=== PATIENT | female | born 1970 | race American Indian/Alaskan Native ===

== ENCOUNTER 2020-07-18 06:00 | Day surgery (SDC) | payer MEDICARE, OTHER ==
[~2020-07-18 06:00] MED LIST: Dextrose 5%-0.45% NaCl 1,000 ML IV SCH; Sodium Chloride 0.9% 10 ML Syringe FLUSH PRN
[2020-07-18] MEDS ORDERED: Midazolam 1 MG/ML 2 ML SDV IV ONE ×3 (06:01→07:00)
[2020-07-18] MEDS ORDERED: fentaNYL 100 MCG/2 ML SDV IV ONE ×3 (06:01→06:59)
[2020-07-18] MEDS ORDERED: fentaNYL 100 MCG/2 ML SDV ONE (06:15)
[2020-07-18] MEDS ORDERED: Midazolam 1 MG/ML 2 ML SDV ONE (06:15)
--- NOTE | 2020-07-18 07:56 | OR ---
DATE: 07/18/2020 PROCEDURES: Esophagogastroduodenoscopy and multiple pinch biopsies. INSTRUMENT USED: [id number] Olympus video panendoscope. PREMEDICATIONS: No oral or topical anesthesia used. Fentanyl 100 mcg intravenous, Versed 2 mg intravenous, nasal O2 cannula. 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 INDICATION: The patient with persistent upper abdominal pain, heartburn, dyspepsia, and weight loss, unexplained and not responsive to medical measures. Esophagogastroduodenoscopy is performed for detection of any active erosive lesions, Lugo esophagus and/or malignancy also under consideration, H pylori status to be determined. Small bowel biopsies to be obtained for celiac disease, endoscopic hemostasis therapy if needed. PROCEDURE IN DETAIL: The scope was passed with ease. Adequate visualization of the esophagus was made from proximal to distal areas. No upper esophageal lesions identified. No distal esophageal stricture. No uphill or downhill esophageal varices. No Barbi-Celaya tear. No evidence of erosive esophagitis by Cobb criteria. No esophageal polyp or tumor mass identified. Z-line was seen at around 39 cm distal to the oral verge. No proximal gastric varices noted. Gastric fundus examination by retroflexion showed no polypoid lesions. No gastric ulcer, malignant mass, or vascular ectasia identified. Duodenal bulb showed no ulcer. Visualized second part of the duodenum was unremarkable. Multiple pinch biopsies, 4 in number, were taken from different areas of the second part of the duodenum and tissues were also obtained from the duodenal bulb at 9 and 12 o'clock positions and sent for any histopathologic evidence of celiac disease. Multiple pinch biopsies were also obtained from the gastric antrum and proximal body and sent for PyloriTek test for H pylori and histopathology. No bleeding was noted from any of the visualized areas at the completion of examination. Photographs were taken of the duodenal bulb, gastric antrum, fundus, and distal esophagus. IMPRESSION: Normal study. The patient tolerated the procedure well. [facility] /[id number]
== END 2020-07-18 09:14 | disposition home or self-care (01) ==
LOC: DL.ENDO 06:00
PROVIDERS: ATTEND Internal Medicine Gastroenterology
DX: K31.89 Other diseases of stomach and duodenum (principal); I78.1 Nevus, non-neoplastic; E78.5 Hyperlipidemia, unspecified; E66.09 Other obesity due to excess calories; Z68.26 Body mass index [BMI] 26.0-26.9, adult; H90.3 Sensorineural hearing loss, bilateral; N20.0 Calculus of kidney; Z88.2 Allergy status to sulfonamides; Z98.890 Other specified postprocedural states
CPT/HCPCS: 43239; 87077; 88305; J2250; J3010; J7042

== ENCOUNTER 2020-08-18 16:48 | Emergency (ER) | payer MEDICARE, OTHER ==
[2020-08-18] MEDS ORDERED: Acetaminophen/HYDROcodone 325-10 MG Tab PO ONE (16:49)
[2020-08-18] MEDS ORDERED: Ketorolac 10 MG Tab PO ONE (16:49)
[2020-08-18] MEDS ORDERED: Ondansetron 4 MG Tab.DIS PO ONE (16:49)
[2020-08-18] MEDS ORDERED: Sodium Chloride 0.9% 10 ML Syringe FLUSH PRN (18:11)
[2020-08-18] MEDS ORDERED: Ondansetron 4 MG/2 ML SDV IV ONE (18:11)
[2020-08-18] MEDS ORDERED: HYDROmorphone 1 MG/ML Syringe IVPUSH ONE (18:11)
[2020-08-18] MEDS ORDERED: Tamsulosin 0.4 MG Cap.ER PO ONE (18:12)
[2020-08-18] MEDS ORDERED: Ketorolac 30 MG/ML SDV IVPUSH ONE (18:12)
--- NOTE | 2020-08-18 18:55 | EDM.PDOC ---
"Scribed by Abi Castellon 08/18/20 [id number] for Taiwo Thomson MD <Taiwo Thomson - Last Filed: 08/18/20 18:54> ED HPI GENERAL MEDICAL PROBLEM - General Chief Complaint: Genitourinary Problem Stated Complaint: LEFT LOWER BACK PAIN. ALSO THROWING UP Time Seen by Provider: 08/18/20 17:54 Source of Information: Reports: Patient, RN, RN Notes Reviewed History Limitations: Reports: Other (deaf) - History of Present Illness INITIAL COMMENTS - FREE TEXT/NARRATIVE: Patient presents to ED by POV stating she has onset of left flank pain this afternoon. Initially the pain was severe and made her vomit. She had a CT scan a few weeks for gallbladder and the surgeon states that she had a small kidney stone on the left within the left, where it should not cause any problems. She thinks it maybe the cause of her pain. Onset: Today Duration: Getting Worse Location: Reports: Other (flank) Quality: Reports: Ache Severity: Severe Improves with: Reports: None Worsens with: Reports: None Associated Symptoms: Reports: No Other Symptoms Left Flank Pain Score (Numeric/FACES): 6 - Related Data Allergies Allergy/AdvReac Type Severity Reaction Status Date / Time sulfacetamide Allergy Other Verified 07/17/20 11:41 Home Meds: Home Meds Calcium Carbonate [Tums] 1,000 mg PO ASDIRECTED 07/17/20 [History] FLUoxetine [PROzac] 10 mg PO DAILY 07/17/20 [History] Glucosamine Sulfate 500 mg PO .MWF 07/17/20 [History] Omeprazole 20 mg PO DAILY 07/17/20 [History] Propranolol [Inderal] 20 mg PO DAILY 07/17/20 [History] Topiramate [Topamax] 50 mg PO BID 07/17/20 [History] Past Medical History HEENT History: Reports: Cataract, Hard of Hearing, Other (See Below) Other HEENT History: CONGENTIAL DEAFNESS Cardiovascular History: Reports: High Cholesterol Respiratory History: Reports: None Gastrointestinal History: Reports: None Genitourinary History: Reports: None, Renal Calculus 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 Musculoskeletal History: Reports: Arthritis Neurological History: Reports: Migraines Psychiatric History: Reports: Anxiety Endocrine/Metabolic History: Reports: Obesity/BMI 30+ Hematologic History: Reports: Anemia Immunologic History: Reports: None Oncologic (Cancer) History: Reports: None Dermatologic History: Reports: None - Infectious Disease History Infectious Disease History: Reports: Chicken Pox - Past Surgical History HEENT Surgical History: Reports: Oral Surgery Cardiovascular Surgical History: Reports: None Respiratory Surgical History: Reports: None GI Surgical History: Reports: None, EGD Female Surgical History: Reports: Tubal Ligation Endocrine Surgical History: Reports: None Neurological Surgical History: Reports: None Musculoskeletal Surgical History: Reports: None Oncologic Surgical History: Reports: None Dermatological Surgical History: Reports: None Social & Family History - Caffeine Use Caffeine Use: Reports: Soda Other Caffeine Use: COCA COLA 1 CAN DAILY ED ROS GENERAL - Review of Systems Review Of Systems: Comprehensive ROS is negative, except as noted in HPI. ED EXAM, RENAL/ - Physical Exam Exam: See Below Exam Limited By: Other (deaf) General Appearance: Alert, WD/WN, No Apparent Distress Eye Exam: Bilateral Eye: EOMI, Normal Inspection, PERRL Ears: Normal External Exam, Normal Canal, Hearing Grossly Normal, Normal TMs Nose: Normal Inspection, Normal Mucosa, No Blood Throat/Mouth: Normal Inspection, Normal Lips, Normal Teeth, Normal Gums, Normal Oropharynx, Normal Voice, No Airway Compromise Head: Atraumatic, Normocephalic Neck: Normal Inspection, Supple, Non-Tender, Full Range of Motion Respiratory/Chest: No Respiratory Distress, Lungs Clear, Normal Breath Sounds, No Accessory Muscle Use, Chest Non-Tender Cardiovascular: Normal Peripheral Pulses, Regular Rate, Rhythm, No Edema, No Gallop, No JVD, No Murmur, No Rub GI/Abdominal: Other (left sided lower abdominal tenderness. ) (Female) Exam: Deferred Rectal (Female) Exam: Deferred Back Exam: CVA Tenderness (L). No: CVA Tenderness (R) Extremities: Normal Inspection, Normal Range of Motion, Non-Tender, Normal Capillary Refill, No Pedal Edema Neurological: Alert, Oriented, CN II-XII Intact, Normal Cognition, Normal Gait, Normal Reflexes, No Motor/Sensory Deficits Psychiatric: Normal Affect, Normal Mood Skin Exam: Warm, Dry, Intact, Normal Color, No Rash Lymphatic: No Adenopathy Course - Re-Assessments/Exams Free Text/Narrative Re-Assessment/Exam: 08/18/20 18:54 Care of pt transferred to Lion DASH at shift change. Departure - Departure Disposition: Home, Self-Care 01 Clinical Impression: Kidney stone on left side - Discharge Information Instructions: Kidney Stones, [id number] Forms: ED Department Discharge Care Plan Goals: The patient was advised (through a population geneticist) of the examination, lab and CT results. The patient was given IV Zofran, IV Toradol, IV Dilaudid, IV Reglan and an oral dose of Flomax while in the ED. The patient was discharged with Toradol (10 mg) #2 to take 1 by mouth every 6 hours, Zofran ODT (4 mg) #2 to take 1 by mouth every 6 hours and [place] (10/325) #2 to take 1 by mouth every 6 hours as needed for pain. The patient was also discharged with scripts for Toradol (10 mg) #20 to take 1 by mouth every 6 hours, Zofran (4 mg) #20 to take 1 by mouth every 6 hours for nausea and Flomax (0.4 mg) #6 to take 1 by mouth daily for 6 days. The patient was encourage to increase her oral fluid intake over the next 48 hours. If the patient has any additional symptoms or concerns, the patient should either return to the emergency department or visit her primary care facility. <Lion Booth M - Last Filed: 08/18/20 20:24> Course - Vital Signs Last Recorded V/S: Last Vital Signs Temp 36.3 C 08/18/20 17:30 Pulse 65 08/18/20 17:30 Resp 20 08/18/20 17:30 BP 125/61 08/18/20 17:30 Pulse Ox 100 08/18/20 17:30 - Orders/Labs/Meds Orders: Active Orders 24 hr Category Date Time Status Peripheral IV Care [RC] . DIRECTED Care 08/18/20 18:12 Active Sodium Chloride 0.9% [Saline Flush] Med 08/18/20 18:11 Active 10 ml FLUSH ASDIRECTED PRN Peripheral IV Insertion Adult [OM.PC] Stat Oth 08/18/20 18:11 Ordered Medication Orders Sodium Chloride (Sodium Chloride 0.9% 10 Ml Syringe) 10 ml FLUSH ASDIRECTED PRN PRN Reason: Keep Vein Open Labs: Laboratory Tests 08/18/20 Range/Units 17:30 Urine Color Yellow (YELLOW) Urine Appearance Cloudy (CLEAR) Urine pH 7.0 (5.0-9.0) Ur Specific [place] 1.020 (1.005-1.030) Urine Protein Negative (NEGATIVE) Urine Glucose (UA) Negative (NEGATIVE) Urine Ketones Negative (NEGATIVE) Urine Occult Blood Moderate H (NEGATIVE) Urine Nitrite Negative (NEGATIVE) Urine Bilirubin Negative (NEGATIVE) Urine Urobilinogen 0.2 (0.2-1.0) mg/dL Ur Leukocyte Esterase Negative (NEGATIVE) Urine RBC 30-40 H /HPF Urine WBC 0-5 (0-5/HPF) /HPF Ur Epithelial Cells Moderate H (NOT SEEN) /HPF Amorphous Sediment Many H (NOT SEEN) /HPF Urine Bacteria Moderate H (0-FEW/HPF) /HPF Meds: Medications Generic Name Dose Route Start Last Admin Trade Name Freq PRN Reason Stop Dose Admin Sodium Chloride 10 ml 08/18/20 18:11 Sodium Chloride 0.9% 10 Ml Syringe FLUSH ASDIRECTED PRN Keep Vein Open Discontinued Medications Generic Name Dose Route Start Last Admin Trade Name Freq PRN Reason Stop Dose Admin Hydromorphone HCl 1 mg 08/18/20 18:11 08/18/20 19:03 Hydromorphone 1 Mg/Ml Syringe IVPUSH 08/18/20 18:12 1 mg ONETIME ONE Administration Ketorolac Tromethamine 30 mg 08/18/20 18:12 08/18/20 19:01 Ketorolac 30 Mg/Ml Sdv IVPUSH 08/18/20 18:13 30 mg ONETIME ONE Administration Ondansetron HCl 4 mg 08/18/20 18:11 08/18/20 19:00 Ondansetron 4 Mg/2 Ml Sdv IV 08/18/20 18:12 4 mg ONETIME ONE Administration Tamsulosin HCl 0.4 mg 08/18/20 18:12 08/18/20 19:05 Tamsulosin 0.4 Mg Cap.Er PO 08/18/20 18:13 0.4 mg ONETIME ONE Administration - Radiology Interpretation Free Text/Narrative:: [facility] Final Radiology Report Call: [phone] assistance Online chat: [email or web address] Name: IQRA SALAS Age: 49Years F Date: 08/18/2020 SSN: -- : [id number] Study: CT ABDOMEN PELVIS WO CONT Requesting Physician: TAIWO THOMSON Images: [id number] Addl Studies: Provided Clinical History: Left flank pain, hematuria Contrast: Without Contrast Medium: Contrast Amount: Contrast Method: Page 1 of 2 PROCEDURE INFORMATION: Exam: CT Abdomen And Pelvis Without Contrast Exam date and time: 08/18/2020 7:14 PM Age: 49 years old Clinical indication: Other: Left sided pain; Additional info: Left flank pain, hematuria TECHNIQUE: Imaging protocol: Computed tomography of the abdomen and pelvis without contrast. Radiation optimization: All CT scans at this facility use at least one of these dose optimization techniques: automated exposure control; mA and/or kV adjustment per patient size (includes targeted exams where dose is matched to clinical indication); or iterative reconstruction. COMPARISON: CT Abdomen Pelvis w Cont 07/27/2020 8:41 AM FINDINGS: Lungs: The visualized lung bases are clear. Liver: The liver is normal. Gallbladder and bile ducts: The gallbladder is normal. There is no evidence of biliary ductal dilation. Pancreas: The pancreas is normal. Spleen: The spleen is normal. Adrenal glands: The adrenal glands are normal. Kidneys and ureters: 8 x 3 x 5 mm proximal left ureteral calculus with hydroureter and hydronephrosis. There is moderate left hydronephrosis. Moderate proximal left hydroureterThere is mild inflammatory left perinephric stranding. 2 mm calculus upper pole left kidney. 1 mm calculus lower pole right kidney.The right kidney is otherwise unremarkable. Stomach and bowel: Non-specific/nonobstructive intestinal gas pattern. Appendix: A normal appendix is identified. IQRA SALAS | Final Radiology Report CONFIDENTIALITY STATEMENT This report is intended only for use by the referring physician, and only in accordance with law. If you received this in error, call [phone]. Page 2 of 2 Intraperitoneal space: No free intraperitoneal air. No free intraperitoneal fluid. No free intraperitoneal air. No free intraperitoneal fluid. Vasculature: There is no aortic aneurysm. Lymph nodes: There is no adenopathy. Urinary bladder: The bladder is normal. Reproductive: Uterus is anteverted. Multiple nabothian cysts suspect. Small amount of endometrial fluid. 28 mm cyst left ovary.The right ovary is normal. Bones/joints: No acute bony findings are identified. Soft tissues: There is no soft tissue abnormality seen. IMPRESSION: 1. 8 x 3 x 5 mm proximal left ureteral calculus with hydroureter and hydronephrosis. 2. Mild left perinephric stranding suggests forniceal rupture and/or infection. 3. There are additional bilateral intrarenal calculi. 4. Small cyst left ovary, no follow-up suggested. Thank you for allowing us to participate in the care of your patient. Dictated and Authenticated by: Osmar Qureshi MD 08/18/2020 7:33 PM Central Time ([place] & [place]) Departure - Departure Time of Disposition: 20:16 Condition: Fair - Discharge Information *PRESCRIPTION DRUG MONITORING PROGRAM REVIEWED*: Not Applicable *COPY OF PRESCRIPTION DRUG MONITORING REPORT IN PATIENT NETTIE: Not Applicable Sepsis Event Note (ED) - Focused Exam Vital Signs: Vital Signs Temp Pulse Resp BP Pulse Ox 08/18/20 17:30 36.3 C 65 20 125/61 100 I have read and agree with the documentation that has been completed regarding this visit. By signing this record, I attest that the documentation was completed in my physical presence and is an accurate record of the encounter."
--- NOTE | 2020-08-18 19:33 | CT ---
PROCEDURE INFORMATION: Exam: CT Abdomen And Pelvis Without Contrast Exam date and time: 08/18/2020 7:14 PM Age: 49 years old Clinical indication: Other: Left sided pain; Additional info: Left flank pain, hematuria TECHNIQUE: Imaging protocol: Computed tomography of the abdomen and pelvis without contrast. Radiation optimization: All CT scans at this facility use at least one of these dose optimization techniques: automated exposure control; mA and/or kV adjustment per patient size (includes targeted exams where dose is matched to clinical indication); or iterative reconstruction. COMPARISON: CT Abdomen Pelvis w Cont 07/27/2020 8:41 AM FINDINGS: Lungs: The visualized lung bases are clear. Liver: The liver is normal. Gallbladder and bile ducts: The gallbladder is normal. There is no evidence of biliary ductal dilation. Pancreas: The pancreas is normal. Spleen: The spleen is normal. Adrenal glands: The adrenal glands are normal. Kidneys and ureters: 8 x 3 x 5 mm proximal left ureteral calculus with hydroureter and hydronephrosis. There is moderate left hydronephrosis. Moderate proximal left hydroureterThere is mild inflammatory left perinephric stranding. 2 mm calculus upper pole left kidney. 1 mm calculus lower pole right kidney.The right kidney is otherwise unremarkable. Stomach and bowel: Non-specific/nonobstructive intestinal gas pattern. Appendix: A normal appendix is identified. Intraperitoneal space: No free intraperitoneal air. No free intraperitoneal fluid. No free intraperitoneal air. No free intraperitoneal fluid. Vasculature: There is no aortic aneurysm. Lymph nodes: There is no adenopathy. Urinary bladder: The bladder is normal. Reproductive: Uterus is anteverted. Multiple nabothian cysts suspect. Small amount of endometrial fluid. 28 mm cyst left ovary.The right ovary is normal. Bones/joints: No acute bony findings are identified. Soft tissues: There is no soft tissue abnormality seen. IMPRESSION: 1. 8 x 3 x 5 mm proximal left ureteral calculus with hydroureter and hydronephrosis. 2. Mild left perinephric stranding suggests forniceal rupture and/or infection. 3. There are additional bilateral intrarenal calculi. 4. Small cyst left ovary, no follow-up suggested.
[2020-08-18] MEDS ORDERED: Metoclopramide 10 MG/2 ML SDV IVPUSH ONE (20:13)
[2020-08-18] MEDS ORDERED: Ondansetron 4 MG Tab.DIS ONE (20:30)
[2020-08-18] MEDS ORDERED: Acetaminophen/HYDROcodone 325-10 MG Tab ONE (20:30)
[2020-08-18] MEDS ORDERED: Ketorolac 10 MG Tab ONE (20:41)
== END 2020-08-18 20:49 | disposition home or self-care (01) ==
LOC: DL.ED 16:48
DX: N13.2 Hydronephrosis with renal and ureteral calculous obstruction (principal); E78.00 Pure hypercholesterolemia, unspecified; E66.9 Obesity, unspecified; Z88.2 Allergy status to sulfonamides; Z79.899 Other long term (current) drug therapy; Z68.26 Body mass index [BMI] 26.0-26.9, adult
CPT/HCPCS: 74176; 81001; 96374; 96375; 99284; A9270; J1170; J1885; J2405; J2765

== ENCOUNTER 2020-08-19 20:57 | Emergency (ER) | payer MEDICARE, OTHER ==
[2020-08-19] MEDS ORDERED: HYDROmorphone 0.5 MG/0.5 ML Syringe IVPUSH ONE (22:44)
--- NOTE | 2020-08-19 22:54 | EDM.PDOC ---
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 The patient was seen in the ED yesterday due to a left kidney stone. The patient had been doing well all day, but started to have increased pain in her left side this evening when she went to bed. The patient has been taking her medications as prescribed. The patient reports she has had normal urine output and a normal bowel movement. Duration: Day(s):, Intermittent Location: Reports: Back (left flank) Quality: Reports: Ache, Sharp Severity: Moderate Improves with: Reports: None Worsens with: Reports: None Context: Reports: Other Associated Symptoms: Reports: No Other Symptoms Treatments NURSE HEAD: Reports: Other Medication(s) Flank Pain Score (Numeric/FACES): 6 - Related Data Allergies Allergy/AdvReac Type Severity Reaction Status Date / Time sulfacetamide Allergy Other Verified 07/17/20 11:41 Home Meds: Home Meds Calcium Carbonate [Tums] 1,000 mg PO ASDIRECTED 07/17/20 [History] FLUoxetine [PROzac] 10 mg PO DAILY 07/17/20 [History] Glucosamine Sulfate 500 mg PO .MWF 07/17/20 [History] Omeprazole 20 mg PO DAILY 07/17/20 [History] Propranolol [Inderal] 20 mg PO DAILY 07/17/20 [History] Topiramate [Topamax] 50 mg PO BID 07/17/20 [History] Past Medical History HEENT History: Reports: Cataract, Hard of Hearing, Other (See Below) Other HEENT History: CONGENTIAL DEAFNESS Cardiovascular History: Reports: High Cholesterol Respiratory History: Reports: None Gastrointestinal History: Reports: None Genitourinary History: Reports: None, Renal Calculus 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 Musculoskeletal History: Reports: Arthritis Neurological History: Reports: Migraines Psychiatric History: Reports: Anxiety Endocrine/Metabolic History: Reports: Obesity/BMI 30+ Hematologic History: Reports: Anemia Immunologic History: Reports: None Oncologic (Cancer) History: Reports: None Dermatologic History: Reports: None - Infectious Disease History Infectious Disease History: Reports: Chicken Pox - Past Surgical History HEENT Surgical History: Reports: Oral Surgery Cardiovascular Surgical History: Reports: None Respiratory Surgical History: Reports: None GI Surgical History: Reports: None, EGD Female Surgical History: Reports: Tubal Ligation Endocrine Surgical History: Reports: None Neurological Surgical History: Reports: None Musculoskeletal Surgical History: Reports: None Oncologic Surgical History: Reports: None Dermatological Surgical History: Reports: None Social & Family History - Caffeine Use Caffeine Use: Reports: Coffee Other Caffeine Use: COCA COLA 1 CAN DAILY ED ROS GENERAL - Review of Systems Review Of Systems: Comprehensive ROS is negative, except as noted in HPI. ED EXAM, RENAL/ - Physical Exam Exam: See Below Exam Limited By: No Limitations General Appearance: Alert, WD/WN, Moderate Distress Eye Exam: Bilateral Eye: EOMI, Normal Inspection, PERRL Ears: Normal External Exam, Normal Canal, Normal TMs Nose: Normal Inspection, Normal Mucosa, No Blood Throat/Mouth: Normal Inspection, Normal Lips, Normal Teeth, Normal Gums, Normal Oropharynx, Normal Voice, No Airway Compromise Head: Atraumatic, Normocephalic Neck: Normal Inspection, Supple, Non-Tender, Full Range of Motion Respiratory/Chest: No Respiratory Distress, Lungs Clear, Normal Breath Sounds, No Accessory Muscle Use, Chest Non-Tender Cardiovascular: Normal Peripheral Pulses, Regular Rate, Rhythm, No Edema, No Gallop, No JVD, No Murmur, No Rub GI/Abdominal: Normal Bowel Sounds, Soft, Non-Tender, No Organomegaly, No Distention, No Abnormal Bruit, No Mass (Female) Exam: Deferred Rectal (Female) Exam: Deferred Back Exam: CVA Tenderness (L) Extremities: Normal Inspection, Normal Range of Motion, Non-Tender, Normal Capillary Refill, No Pedal Edema Neurological: Alert, Oriented, CN II-XII Intact, Normal Cognition, Normal Gait, Normal Reflexes, No Motor/Sensory Deficits Psychiatric: Normal Affect, Normal Mood Skin Exam: Warm, Dry, Intact, Normal Color, No Rash Course - Vital Signs Last Recorded V/S: Last Vital Signs Temp 37.2 C 08/19/20 22:45 Pulse 78 08/19/20 22:45 Resp 20 08/19/20 22:45 BP 117/69 08/19/20 22:45 Pulse Ox 96 08/19/20 22:45 - Orders/Labs/Meds Meds: Medications Discontinued Medications Generic Name Dose Route Start Last Admin Trade Name Martínez PRN Reason Stop Dose Admin Hydromorphone HCl 0.5 mg 08/19/20 22:44 08/19/20 23:17 Hydromorphone 0.5 Mg/0.5 Ml Syringe IVPUSH 08/19/20 22:45 0.5 mg ONETIME ONE Administration Hydromorphone HCl 0.5 mg 08/20/20 00:14 08/20/20 00:21 Hydromorphone 0.5 Mg/0.5 Ml Syringe IVPUSH 08/20/20 00:15 0.5 mg ONETIME ONE Administration Departure - Departure Time of Disposition: 00:23 Disposition: DC/Tfer to Acute Hospital 02 Condition: Fair Clinical Impression: Kidney stone on left side - Discharge Information *PRESCRIPTION DRUG MONITORING PROGRAM REVIEWED*: Not Applicable *COPY OF PRESCRIPTION DRUG MONITORING REPORT IN PATIENT NETTIE: Not Applicable Forms: Interfacility Transfer EMTALA Care Plan Goals: Discussed the patient's history, examination, and CT results with Dr. Carbone (Hospitalist with [facility] in [place]). Dr. Carbone accepted the patient for continued evaluation and management. The patient will be transported by [facility]. Sepsis Event Note (ED) - Focused Exam Vital Signs: Vital Signs Temp Pulse Resp BP Pulse Ox 08/19/20 22:45 37.2 C 78 20 117/69 96
--- NOTE | 2020-08-19 23:36 | CT ---
PROCEDURE INFORMATION: Exam: CT Abdomen And Pelvis Without Contrast Exam date and time: 08/19/2020 10:58 PM Age: 49 years old Clinical indication: Other: Increased pain since yesterday; Additional info: Kidney stone TECHNIQUE: Imaging protocol: Computed tomography of the abdomen and pelvis without contrast. Radiation optimization: All CT scans at this facility use at least one of these dose optimization techniques: automated exposure control; mA and/or kV adjustment per patient size (includes targeted exams where dose is matched to clinical indication); or iterative reconstruction. COMPARISON: CT Abdomen Pelvis wo Cont 08/18/2020 7:14 PM FINDINGS: Liver: Normal. No mass. Gallbladder and bile ducts: The gallbladder is partially contracted. No calcified gallstones. Pancreas: Normal. No ductal dilation. Spleen: Normal. No splenomegaly. Adrenal glands: Normal. No mass. Kidneys and ureters: Mild left hydronephrosis with an obstructing stone in the proximal ureter measuring 6 x 5 x 10 mm. Mild left perinephric edema. Other small stone in the left upper renal pole and punctate nonobstructive stone in the right lower renal pole. No right hydronephrosis or hydroureter. Stomach and bowel: Unremarkable. No obstruction. No mucosal thickening. Appendix: Normal appendix. No acute appendicitis. Intraperitoneal space: Unremarkable. No free air. No significant fluid collection. Vasculature: Unremarkable. No abdominal aortic aneurysm. Lymph nodes: Unremarkable. No enlarged lymph nodes. Urinary bladder: Unremarkable as visualized. Reproductive: There are multiple nabothian cysts. Bones/joints: Unremarkable. No acute fracture. Soft tissues: Unremarkable. IMPRESSION: Mild left hydronephrosis with an obstructing stone in the proximal ureter measuring 6 x 5 x 10 mm.
[2020-08-20] MEDS ORDERED: HYDROmorphone 0.5 MG/0.5 ML Syringe IVPUSH ONE (00:14)
[2020-08-20] MEDS ORDERED: Ondansetron 4 MG/2 ML SDV IVPUSH ONE (00:27)
== END 2020-08-20 01:40 ==
LOC: DL.ED 20:57
DX: N13.2 Hydronephrosis with renal and ureteral calculous obstruction (principal); E66.9 Obesity, unspecified; Z68.29 Body mass index [BMI] 29.0-29.9, adult; Z88.2 Allergy status to sulfonamides; Z79.899 Other long term (current) drug therapy
CPT/HCPCS: 74176; 96374; 96375; 96376; 99285; J1170; J2405

== ENCOUNTER 2020-09-10 12:39 | Inpatient (IN) | payer MEDICARE, OTHER ==
[2020-09-10] MEDS ORDERED: Sodium Chloride 0.9% 1,000 ML IV ONE ×2 (14:35→16:31)
[2020-09-10] MEDS ORDERED: Ondansetron 4 MG/2 ML SDV IV ONE (14:35)
[2020-09-10] MEDS ORDERED: HYDROmorphone 0.5 MG/0.5 ML Syringe IVPUSH ONE (14:53)
[2020-09-10 15:10] LABS: ANION GAP 18.6 mEq/L (7-13); CHLORIDE,CL 104 mmol/L (98-107); SODIUM,NA 142 mmol/L (136-145)
[2020-09-10] MEDS ORDERED: cefTRIAXone 1 GM in Sodium Chloride 0.9% 50 ML IV ONE (16:16)
[2020-09-10] MEDS ORDERED: Metoclopramide 10 MG/2 ML SDV IVPUSH ONE (16:17)
--- NOTE | 2020-09-10 16:21 | CT ---
PROCEDURE INFORMATION: Exam: CT Abdomen And Pelvis Without Contrast Exam date and time: 09/10/2020 3:50 PM Age: 49 years old Clinical indication: Nausea and vomiting and other: Diahrrea; Prior surgery; Surgery type: Stent removal; Additional info: Left flank pain, recent lithotripsy stent remova TECHNIQUE: Imaging protocol: Computed tomography of the abdomen and pelvis without contrast. Radiation optimization: All CT scans at this facility use at least one of these dose optimization techniques: automated exposure control; mA and/or kV adjustment per patient size (includes targeted exams where dose is matched to clinical indication); or iterative reconstruction. COMPARISON: CT Abdomen Pelvis wo Cont 08/19/2020 10:58 PM FINDINGS: Lungs: Unremarkable.No mass or nodule. Liver: Normal. No mass. Gallbladder and bile ducts: Cholecystectomy. Pancreas: Normal. No ductal dilation. Spleen: Normal. No splenomegaly. Adrenal glands: Normal. No mass. Kidneys and ureters: Previously identified proximal left ureteral calculus is no longer identified. No residual hydronephrosis or hydroureter. Tiny nonobstructing calculus remains in the left kidney. Stomach and bowel: Unremarkable. No obstruction. No mucosal thickening. Appendix: No evidence of appendicitis. Intraperitoneal space: Unremarkable. No free air. No significant fluid collection. Vasculature: Unremarkable. No abdominal aortic aneurysm. Lymph nodes: Unremarkable. No enlarged lymph nodes. Urinary bladder: Unremarkable as visualized. Reproductive: Multiple nabothian cysts identified. Bones/joints: Unremarkable. No acute fracture. Soft tissues: Unremarkable. IMPRESSION: Interval resolution of left-sided obstructive uropathy, as described above. Otherwise stable findings.
--- NOTE | 2020-09-10 16:56 | EDM.PDOC ---
Scribed by Abi Castellon 09/10/20 [id number] for Wandy Sweet NP ED HPI GENERAL MEDICAL PROBLEM - General Chief Complaint: Gastrointestinal Problem Stated Complaint: STOMACHE PAIN DIARRHEA VOMMITING Time Seen by Provider: 09/10/20 14:30 Source of Information: Reports: Patient, RN, RN Notes Reviewed History Limitations: Reports: No Limitations - History of Present Illness INITIAL COMMENTS - FREE TEXT/NARRATIVE: Patient is a 49-year-old female who presents to ER with mother with complaint of diarrhea, upset stomach, lower back pain, vomiting and chills. This began at 4 A.M.. States pain feels the same as when she had a kidney stone. On August 23, 2020 she had lithotripsy in [place]. One week later she had her gallbladder out in [place]. Last week the stent taken out of kidney in [place]. No fever or blood in urine. She has had the COVID vaccination. Onset: Today Duration: Getting Worse Location: Reports: Abdomen Quality: Reports: Ache Severity: Moderate Improves with: Reports: None Worsens with: Reports: None Associated Symptoms: Reports: No Other Symptoms Bilateral Abdomen Pain Score (Numeric/FACES): 6 - Related Data Allergies Allergy/AdvReac Type Severity Reaction Status Date / Time sulfacetamide Allergy Other Verified 09/10/20 13:56 Home Meds: Home Meds Calcium Carbonate [Tums] 1,000 mg PO ASDIRECTED 07/17/20 [History] FLUoxetine [PROzac] 10 mg PO DAILY 07/17/20 [History] Glucosamine Sulfate 500 mg PO .MWF 07/17/20 [History] Omeprazole 20 mg PO DAILY 07/17/20 [History] Propranolol [Inderal] 20 mg PO DAILY 07/17/20 [History] Topiramate [Topamax] 50 mg PO BID 07/17/20 [History] Past Medical History HEENT History: Reports: Cataract, Hard of Hearing, Other (See Below) Other HEENT History: CONGENTIAL DEAFNESS Cardiovascular History: Reports: High Cholesterol Respiratory History: Reports: None Gastrointestinal History: Reports: None Genitourinary History: Reports: None, Renal Calculus [employer] History: Reports: None Musculoskeletal History: Reports: Arthritis Neurological History: Reports: Migraines Psychiatric History: Reports: Anxiety Endocrine/Metabolic History: Reports: Obesity/BMI 30+ Hematologic History: Reports: Anemia Immunologic History: Reports: None Oncologic (Cancer) History: Reports: None Dermatologic History: Reports: None - Infectious Disease History Infectious Disease History: Reports: Chicken Pox - Past Surgical History HEENT Surgical History: Reports: Oral Surgery Cardiovascular Surgical History: Reports: None Respiratory Surgical History: Reports: None GI Surgical History: Reports: None, EGD Female Surgical History: Reports: Tubal Ligation Endocrine Surgical History: Reports: None Neurological Surgical History: Reports: None Musculoskeletal Surgical History: Reports: None Oncologic Surgical History: Reports: None Dermatological Surgical History: Reports: None Social & Family History - Family History Family Medical History: No Pertinent Family History - Tobacco Use Tobacco Use Status *Q: Never Tobacco User Second Hand Smoke Exposure: No - Caffeine Use Caffeine Use: Reports: Coffee Other Caffeine Use: COCA COLA 1 CAN DAILY - Recreational Drug Use Recreational Drug Use: No ED ROS GENERAL - Review of Systems Review Of Systems: Comprehensive ROS is negative, except as noted in HPI. ED EXAM, GI/ABD - Physical Exam Exam: See Below Exam Limited By: No Limitations General Appearance: Anxious, Moderate Distress Eyes: Bilateral: Normal Appearance Ears: Other (deaf) Nose: Normal Inspection, Normal Mucosa, No Blood Throat/Mouth: Normal Inspection, Normal Lips, Normal Teeth, Normal Gums, Normal Oropharynx, Normal Voice, No Airway Compromise Head: Atraumatic, Normocephalic Neck: Normal Inspection, Supple, Non-Tender, Full Range of Motion Respiratory/Chest: No Respiratory Distress, Lungs Clear, Normal Breath Sounds, No Accessory Muscle Use, Chest Non-Tender Cardiovascular: Normal Peripheral Pulses, Regular Rate, Rhythm, No Edema, No Gallop, No JVD, No Murmur, No Rub GI/Abdominal Exam: Normal Bowel Sounds, Soft, Non-Tender, No Organomegaly, No Distention, No Abnormal Bruit, No Mass, Pelvis Stable (Female) Exam: Deferred Rectal (Female) Exam: Deferred Back Exam: CVA Tenderness (L) Extremities: Normal Inspection, Normal Range of Motion, Non-Tender, Normal Capillary Refill, No Pedal Edema Neurological: Alert, Oriented, CN II-XII Intact, Normal Cognition, Normal Gait, Normal Reflexes, No Motor/Sensory Deficits Psychiatric: Normal Affect, Normal Mood Skin Exam: Other (pale) Lymphatic: No Adenopathy #1 Interpretation EKG Date: 09/10/20 Time: 14:38 Rhythm: Other (sinus rhythm) Rate (Beats/Min): 82 EKG Interpretation Comments: Consider left ventricular hypertrophy. Minimal ST elevation, lateral leads. Course - Vital Signs Last Recorded V/S: Last Vital Signs Temp 99.2 F 09/10/20 13:53 Pulse 105 H 09/10/20 13:53 Resp 16 09/10/20 13:53 BP 106/69 09/10/20 13:53 Pulse Ox 93 L 09/10/20 13:53 - Orders/Labs/Meds Orders: Active Orders 24 hr Category Date Time Status CULTURE BLOOD [BC] Stat Lab 09/10/20 14:25 Results CULTURE BLOOD [BC] Stat Lab 09/10/20 14:38 Results CULTURE URINE [RM] Stat Lab 09/10/20 15:19 Received Sodium Chloride 0.9% [Normal Saline] 1,000 ml Med 09/10/20 16:31 Active IV .BOLUS Blood Culture x2 Reflex Set [OM.PC] Stat Oth 09/10/20 14:12 Ordered Medication Orders Sodium Chloride (Normal Saline) 1,000 mls @ 999 mls/hr IV .BOLUS ONE Stop: 09/10/20 17:31 Labs: Laboratory Tests 09/10/20 09/10/20 09/10/20 Range/Units 14:25 14:32 14:32 WBC 11.2 H (5.0-10.0) 10^3/uL RBC 5.21 (4.2-5.4) 10^6/uL Hgb 15.0 (12.0-16.0) g/dL Hct 47.0 (37.0-47.0) % MCV 90.2 (80-100) fL MCH 28.8 (27.0-34.0) pg MCHC 31.9 L (33.0-35.0) g/dL Plt Count 241 (150-450) 10^3/uL Neut % (Auto) 94.7 H (42.2-75.2) % Lymph % (Auto) 2.6 L (20.5-50.1) % [place]oddard % (Auto) 2.0 (2-8) % Eos % (Auto) 0.6 L (1.0-3.0) % Baso % (Auto) 0.1 (0.0-1.0) % PT 10.2 (9.0-12.0) SEC INR 1.0 (0.9-1.2) Sodium 142 (136-145) mmol/L Potassium 3.6 (3.5-5.1) mmol/L Chloride 104 (98-107) mmol/L Carbon Dioxide 23 (21-32) mmol/L Anion Gap 18.6 H (7-13) mEq/L BUN 17 (7-18) mg/dL Creatinine 0.95 (0.55-1.02) mg/dL Est Cr Clr Drug Dosing 59.91 mL/min Estimated GFR (MDRD) > 60 BUN/Creatinine Ratio 17.9 (No establ ref range) Glucose 117 H (70-99) mg/dL Calcium 9.2 (8.5-10.1) mg/dL Total Bilirubin 0.4 (0.2-1.0) mg/dL AST 12 L (15-37) U/L ALT 24 (14-59) U/L Alkaline Phosphatase 126 H (46-116) U/L Troponin I < 0.017 (0.000-0.056) ng/mL C-Reactive Protein 0.9 (0.0-0.9) mg/dL Total Protein 8.4 H (6.4-8.2) g/dL Albumin 4.1 (3.4-5.0) g/dL Globulin 4.3 Albumin/Globulin Ratio 1.0 Amylase 47 (25-115) U/L Lipase 86 (73-393) U/L Urine Color (YELLOW) Urine Appearance (CLEAR) Urine pH (5.0-9.0) Ur Specific Rocky (1.005-1.030) Urine Protein (NEGATIVE) Urine Glucose (UA) (NEGATIVE) Urine Ketones (NEGATIVE) Urine Occult Blood (NEGATIVE) Urine Nitrite (NEGATIVE) Urine Bilirubin (NEGATIVE) Urine Urobilinogen (0.2-1.0) mg/dL Ur Leukocyte Esterase (NEGATIVE) U Hyaline Cast (Auto) Urine RBC /HPF Urine WBC (0-5/HPF) /HPF Ur Epithelial Cells (NOT SEEN) /HPF Amorphous Sediment (NOT SEEN) /HPF Urine Bacteria (0-FEW/HPF) /HPF Urine Mucus (NOT SEEN) /LPF 09/10/ Range/Units 15:19 WBC (5.0-10.0) 10^3/uL RBC (4.2-5.4) 10^6/uL Hgb (12.0-16.0) g/dL Hct (37.0-47.0) % MCV (80-100) fL MCH (27.0-34.0) pg MCHC (33.0-35.0) g/dL Plt Count (150-450) 10^3/uL Neut % (Auto) (42.2-75.2) % Lymph % (Auto) (20.5-50.1) % [place]oddard % (Auto) (2-8) % Eos % (Auto) (1.0-3.0) % Baso % (Auto) (0.0-1.0) % PT (9.0-12.0) SEC INR (0.9-1.2) Sodium (136-145) mmol/L Potassium (3.5-5.1) mmol/L Chloride (98-107) mmol/L Carbon Dioxide (21-32) mmol/L Anion Gap (7-13) mEq/L BUN (7-18) mg/dL Creatinine (0.55-1.02) mg/dL Est Cr Clr Drug Dosing mL/min Estimated GFR (MDRD) BUN/Creatinine Ratio (No establ ref range) Glucose (70-99) mg/dL Calcium (8.5-10.1) mg/dL Total Bilirubin (0.2-1.0) mg/dL AST (15-37) U/L ALT (14-59) U/L Alkaline Phosphatase (46-116) U/L Troponin I (0.000-0.056) ng/mL C-Reactive Protein (0.0-0.9) mg/dL Total Protein (6.4-8.2) g/dL Albumin (3.4-5.0) g/dL Globulin Albumin/Globulin Ratio Amylase (25-115) U/L Lipase (73-393) U/L Urine Color Yellow (YELLOW) Urine Appearance Clear (CLEAR) Urine pH 6.0 (5.0-9.0) Ur Specific Rocky >= 1.030 (1.005-1.030) Urine Protein 30 H (NEGATIVE) Urine Glucose (UA) Negative (NEGATIVE) Urine Ketones 15 H (NEGATIVE) Urine Occult Blood Small H (NEGATIVE) Urine Nitrite Positive H (NEGATIVE) Urine Bilirubin Negative (NEGATIVE) Urine Urobilinogen 0.2 (0.2-1.0) mg/dL Ur Leukocyte Esterase Trace H (NEGATIVE) U Hyaline Cast (Auto) Few Urine RBC 5-10 H /HPF Urine WBC 10-20 H (0-5/HPF) /HPF Ur Epithelial Cells Many H (NOT SEEN) /HPF Amorphous Sediment Few (NOT SEEN) /HPF Urine Bacteria Moderate H (0-FEW/HPF) /HPF Urine Mucus Moderate H (NOT SEEN) /LPF Meds: Medications Generic Name Dose Route Start Last Admin Trade Name Freq PRN Reason Stop Dose Admin Sodium Chloride 1,000 mls @ 999 mls/hr 09/10/20 16:31 Normal Saline IV 09/10/20 17:31 .BOLUS ONE Discontinued Medications Generic Name Dose Route Start Last Admin Trade Name Freq PRN Reason Stop Dose Admin Hydromorphone HCl 0.5 mg 09/10/20 14:53 09/10/20 15:02 Hydromorphone 0.5 Mg/0.5 Ml Syringe IVPUSH 09/10/20 14:54 0.5 mg ONETIME ONE Administration Sodium Chloride 1,000 mls @ 999 mls/hr 09/10/20 14:35 09/10/20 14:49 Normal Saline IV 09/10/20 15:35 999 mls/hr .BOLUS ONE Administration Ceftriaxone Sodium 1 gm/ 50 mls @ 100 mls/hr 09/10/20 16:16 09/10/20 16:24 Sodium Chloride IV 09/10/20 16:45 100 mls/hr ONETIME ONE Administration Metoclopramide HCl 10 mg 09/10/20 16:17 09/10/20 16:24 Metoclopramide 10 Mg/2 Ml Sdv IVPUSH 09/10/20 16:18 10 mg ONETIME ONE Administration Ondansetron HCl 4 mg 09/10/20 14:35 09/10/20 14:49 Ondansetron 4 Mg/2 Ml Sdv IV 09/10/20 14:36 4 mg ONETIME ONE Administration - Radiology Interpretation Free Text/Narrative:: Abdomen/Pelvis CT wo contrast: PROCEDURE INFORMATION: Exam: CT Abdomen And Pelvis Without Contrast Exam date and time: 09/10/2020 3:50 PM Age: 49 years old Clinical indication: Nausea and vomiting and other: Diahrrea; Prior surgery; Surgery type: Stent removal; Additional info: Left flank pain, recent lithotripsy stent remova TECHNIQUE: Imaging protocol: Computed tomography of the abdomen and pelvis without contrast. Radiation optimization: All CT scans at this facility use at least one of these dose optimization techniques: automated exposure control; mA and/or kV adjustment per patient size (includes targeted exams where dose is matched to clinical indication); or iterative reconstruction. COMPARISON: CT Abdomen Pelvis wo Cont 08/19/2020 10:58 PM FINDINGS: Lungs: Unremarkable.No mass or nodule. Liver: Normal. No mass. Gallbladder and bile ducts: Cholecystectomy. Pancreas: Normal. No ductal dilation. Spleen: Normal. No splenomegaly. Adrenal glands: Normal. No mass. Kidneys and ureters: Previously identified proximal left ureteral calculus is no longer identified. No residual hydronephrosis or hydroureter. Tiny nonobstructing calculus remains in the left kidney. Stomach and bowel: Unremarkable. No obstruction. No mucosal thickening. Appendix: No evidence of appendicitis. Intraperitoneal space: Unremarkable. No free air. No significant fluid collection. Vasculature: Unremarkable. No abdominal aortic aneurysm. Lymph nodes: Unremarkable. No enlarged lymph nodes. Urinary bladder: Unremarkable as visualized. Reproductive: Multiple nabothian cysts identified. Bones/joints: Unremarkable. No acute fracture. Soft tissues: Unremarkable. IMPRESSION: Interval resolution of left-sided obstructive uropathy, as described above. Otherwise stable findings. Thank you for allowing us to participate in the care of your patient. Dictated and Authenticated by: Siva Barnard MD 09/10/2020 4:21 PM Central Time ([place] & [place]) See rad report - Re-Assessments/Exams Free Text/Narrative Re-Assessment/Exam: 09/10/20 16:55 discussed patient case with Dr. Bear who agreed to accept the patient for acute inpatient admission. Departure - Departure Time of Disposition: 16:55 Disposition: Admitted As Inpatient 67 Condition: Fair Clinical Impression: Pyelonephritis - Discharge Information *PRESCRIPTION DRUG MONITORING PROGRAM REVIEWED*: No *COPY OF PRESCRIPTION DRUG MONITORING REPORT IN PATIENT NETTIE: No Forms: ED Department Discharge Sepsis Event Note (ED) - Evaluation Sepsis Screening Result: No Definite Risk - Focused Exam Vital Signs: Vital Signs Temp Pulse Resp BP Pulse Ox 09/10/20 13:53 99.2 F 105 H 16 106/69 93 L - My Orders Last 24 Hours: My Active Orders 09/10/20 14:12 Blood Culture x2 Reflex Set [OM.PC] Stat 09/10/20 14:25 CULTURE BLOOD [BC] Stat 09/10/20 14:38 CULTURE BLOOD [BC] Stat 09/10/20 15:19 CULTURE URINE [RM] Stat 09/10/20 16:31 Sodium Chloride 0.9% [Normal Saline] 1,000 ml IV .BOLUS - Assessment/Plan Last 24 Hours: My Active Orders 09/10/20 14:12 Blood Culture x2 Reflex Set [OM.PC] Stat 09/10/20 14:25 CULTURE BLOOD [BC] Stat 09/10/20 14:38 CULTURE BLOOD [BC] Stat 09/10/20 15:19 CULTURE URINE [RM] Stat 09/10/20 16:31 Sodium Chloride 0.9% [Normal Saline] 1,000 ml IV .BOLUS I have read and agree with the documentation that has been completed regarding this visit. By signing this record, I attest that the documentation was completed in my physical presence and is an accurate record of the encounter.
[2020-09-10 17:43] LABS: CORONAVIRUS COVID-19 NAA NEGATIVE (NEGATIVE)
--- NOTE | 2020-09-10 18:14 | PCM.HP ---
H&P History of Present Illness - General Date of Service: 09/10/20 Admit Problem/Dx: Admission Diagnosis/Problem Admission Diagnosis/Problem UTI, Urinary tract infectious disease - History of Present Illness Initial Comments - Free Text/Narative: 49F w/ pmh congenital deafness, kidney stones s/p lithotripsy and stenting ~3 weeks ago, s/p lap cholecystectomy 08/29, s/p left kidney stent removal 1 week ago p/w left flank pain. Pts mother translating in sign language. Pt states she had acute onset left flank pain starting at 4 am. This is associated w/ urinary 'itching', nausea, vomiting x4 and dry heaving, watery diarrhea x4 and chills. Denies hematuria. Pain has not become more generalized abdominal. Bilateral Abdomen Pain Score (Numeric/FACES): 6 - Related Data Allergies/Adverse Reactions: Allergies Allergy/AdvReac Type Severity Reaction Status Date / Time sulfacetamide Allergy Other Verified 09/10/20 17:16 Home Medications: Home Meds FLUoxetine [PROzac] 10 mg PO DAILY 07/17/20 [History] Glucosamine Sulfate 500 mg PO .MWF 07/17/20 [History] Omeprazole 20 mg PO BID 07/17/20 [History] Propranolol [Inderal] 20 mg PO DAILY 07/17/20 [History] Topiramate [Topamax] 50 mg PO BID 07/17/20 [History] Past Medical History HEENT History: Reports: Cataract, Hard of Hearing, Other (See Below) Other HEENT History: CONGENTIAL DEAFNESS Cardiovascular History: Reports: High Cholesterol Respiratory History: Reports: None Gastrointestinal History: Reports: None Genitourinary History: Reports: None, Renal Calculus, Other (See Below) Other Genitourinary History: Left uriter stent. out 09/04/20 [employer] History: Reports: None Musculoskeletal History: Reports: Arthritis, Other (See Below) Other Musculoskeletal History: Left knee Neurological History: Reports: Migraines Psychiatric History: Reports: Anxiety Endocrine/Metabolic History: Reports: Obesity/BMI 30+ Hematologic History: Reports: Anemia Immunologic History: Reports: None Oncologic (Cancer) History: Reports: None Dermatologic History: Reports: None - Infectious Disease History Infectious Disease History: Reports: Chicken Pox - Past Surgical History HEENT Surgical History: Reports: Oral Surgery Cardiovascular Surgical History: Reports: None Respiratory Surgical History: Reports: None GI Surgical History: Reports: None, EGD Female Surgical History: Reports: Tubal Ligation Endocrine Surgical History: Reports: None Neurological Surgical History: Reports: None Musculoskeletal Surgical History: Reports: None Oncologic Surgical History: Reports: None Dermatological Surgical History: Reports: None Social & Family History - Family History Family Medical History: No Pertinent Family History - Tobacco Use Tobacco Use Status *Q: Never Tobacco User Second Hand Smoke Exposure: No - Caffeine Use Caffeine Use: Reports: Coffee, Soda, Tea Other Caffeine Use: COCA COLA 1 CAN DAILY - Recreational Drug Use Recreational Drug Use: No H&P Review of Systems - Review of Systems: Review Of Systems: See Below General: Reports: Chills. Denies: Fever HEENT: Denies: Headaches Pulmonary: Denies: Shortness of Breath, Cough Cardiovascular: Denies: Chest Pain, Edema Gastrointestinal: Reports: Abdominal Pain, Diarrhea, Nausea, Vomiting Genitourinary: Reports: Dysuria. Denies: Hematuria Musculoskeletal: Denies: Neck Pain Skin: Denies: Jaundice Psychiatric: Denies: Confusion, Depression Neurological: Denies: Confusion, Dizziness, Tremors Hematologic/Lymphatic: Denies: Easy Bleeding Exam - Exam Exam: See Below - Vital Signs Vital Signs: Last Vital Signs Temp 99.2 F 09/10/20 13:53 Pulse 105 H 09/10/20 13:53 Resp 16 09/10/20 13:53 BP 106/69 09/10/20 13:53 Pulse Ox 93 L 09/10/20 13:53 Weight: 150 lb - Exam Quality Assessment: No: Supplemental Oxygen General: Alert, Oriented HEENT: Conjunctiva Clear Neck: Supple Lungs: Clear to Auscultation Cardiovascular: Regular Rate, Regular Rhythm GI/Abdominal Exam: Normal Bowel Sounds, Soft, No Distention, Tender (diffuse mild TTP, mild b/l CVA TTP) Extremities: No Pedal Edema Skin: Warm, Dry, Intact Neurological: Cranial Nerves Intact Neuro Extensive - Mental Status: Alert, Oriented x3 Neuro Extensive - Motor, Sensory, Reflexes: No: Tremor Psychiatric: Alert, Normal Affect, Normal Mood - Patient Data Lab Results Last 24 hrs: Laboratory Results - last 24 hr 09/10/20 09/10/20 09/10/20 Range/Units 14:25 14:32 14:32 WBC 11.2 H (5.0-10.0) 10^3/uL RBC 5.21 (4.2-5.4) 10^6/uL Hgb 15.0 (12.0-16.0) g/dL Hct 47.0 (37.0-47.0) % MCV 90.2 (80-100) fL MCH 28.8 (27.0-34.0) pg MCHC 31.9 L (33.0-35.0) g/dL Plt Count 241 (150-450) 10^3/uL Neut % (Auto) 94.7 H (42.2-75.2) % Lymph % (Auto) 2.6 L (20.5-50.1) % Barren % (Auto) 2.0 (2-8) % Eos % (Auto) 0.6 L (1.0-3.0) % Baso % (Auto) 0.1 (0.0-1.0) % PT 10.2 (9.0-12.0) SEC INR 1.0 (0.9-1.2) Sodium 142 (136-145) mmol/L Potassium 3.6 (3.5-5.1) mmol/L Chloride 104 (98-107) mmol/L Carbon Dioxide 23 (21-32) mmol/L Anion Gap 18.6 H (7-13) mEq/L BUN 17 (7-18) mg/dL Creatinine 0.95 (0.55-1.02) mg/dL Est Cr Clr Drug Dosing 59.91 mL/min Estimated GFR (MDRD) > 60 BUN/Creatinine Ratio 17.9 (No establ ref range) Glucose 117 H (70-99) mg/dL Calcium 9.2 (8.5-10.1) mg/dL Total Bilirubin 0.4 (0.2-1.0) mg/dL AST 12 L (15-37) U/L ALT 24 (14-59) U/L Alkaline Phosphatase 126 H (46-116) U/L Troponin I < 0.017 (0.000-0.056) ng/mL C-Reactive Protein 0.9 (0.0-0.9) mg/dL Total Protein 8.4 H (6.4-8.2) g/dL Albumin 4.1 (3.4-5.0) g/dL Globulin 4.3 Albumin/Globulin Ratio 1.0 Amylase 47 (25-115) U/L Lipase 86 (73-393) U/L Urine Color (YELLOW) Urine Appearance (CLEAR) Urine pH (5.0-9.0) Ur Specific [place] (1.005-1.030) Urine Protein (NEGATIVE) Urine Glucose (UA) (NEGATIVE) Urine Ketones (NEGATIVE) Urine Occult Blood (NEGATIVE) Urine Nitrite (NEGATIVE) Urine Bilirubin (NEGATIVE) Urine Urobilinogen (0.2-1.0) mg/dL Ur Leukocyte Esterase (NEGATIVE) U Hyaline Cast (Auto) Urine RBC /HPF Urine WBC (0-5/HPF) /HPF Ur Epithelial Cells (NOT SEEN) /HPF Amorphous Sediment (NOT SEEN) /HPF Urine Bacteria (0-FEW/HPF) /HPF Urine Mucus (NOT SEEN) /LPF Influenza Type A RNA (NEGATIVE) Influenza Type B RNA (NEGATIVE) SARS-CoV-2 RNA (JOS[place] ANTONIO) (NEGATIVE) 09/10/20 09/10/20 Range/Units 15:19 16:55 WBC (5.0-10.0) 10^3/uL RBC (4.2-5.4) 10^6/uL Hgb (12.0-16.0) g/dL Hct (37.0-47.0) % MCV (80-100) fL MCH (27.0-34.0) pg MCHC (33.0-35.0) g/dL Plt Count (150-450) 10^3/uL Neut % (Auto) (42.2-75.2) % Lymph % (Auto) (20.5-50.1) % Barren % (Auto) (2-8) % Eos % (Auto) (1.0-3.0) % Baso % (Auto) (0.0-1.0) % PT (9.0-12.0) SEC INR (0.9-1.2) Sodium (136-145) mmol/L Potassium (3.5-5.1) mmol/L Chloride (98-107) mmol/L Carbon Dioxide (21-32) mmol/L Anion Gap (7-13) mEq/L BUN (7-18) mg/dL Creatinine (0.55-1.02) mg/dL Est Cr Clr Drug Dosing mL/min Estimated GFR (MDRD) BUN/Creatinine Ratio (No establ ref range) Glucose (70-99) mg/dL Calcium (8.5-10.1) mg/dL Total Bilirubin (0.2-1.0) mg/dL AST (15-37) U/L ALT (14-59) U/L Alkaline Phosphatase (46-116) U/L Troponin I (0.000-0.056) ng/mL C-Reactive Protein (0.0-0.9) mg/dL Total Protein (6.4-8.2) g/dL Albumin (3.4-5.0) g/dL Globulin Albumin/Globulin Ratio Amylase (25-115) U/L Lipase (73-393) U/L Urine Color Yellow (YELLOW) Urine Appearance Clear (CLEAR) Urine pH 6.0 (5.0-9.0) Ur Specific [place] >= 1.030 (1.005-1.030) Urine Protein 30 H (NEGATIVE) Urine Glucose (UA) Negative (NEGATIVE) Urine Ketones 15 H (NEGATIVE) Urine Occult Blood Small H (NEGATIVE) Urine Nitrite Positive H (NEGATIVE) Urine Bilirubin Negative (NEGATIVE) Urine Urobilinogen 0.2 (0.2-1.0) mg/dL Ur Leukocyte Esterase Trace H (NEGATIVE) U Hyaline Cast (Auto) Few Urine RBC 5-10 H /HPF Urine WBC 10-20 H (0-5/HPF) /HPF Ur Epithelial Cells Many H (NOT SEEN) /HPF Amorphous Sediment Few (NOT SEEN) /HPF Urine Bacteria Moderate H (0-FEW/HPF) /HPF Urine Mucus Moderate H (NOT SEEN) /LPF Influenza Type A RNA Negative (NEGATIVE) Influenza Type B RNA Negative (NEGATIVE) SARS-CoV-2 RNA (JOSÉ ANTONIO) Negative (NEGATIVE) Result Diagrams: 09/10/20 14:32 09/10/20 14:25 Will Results Last 24 hrs: Microbiology 09/10/20 14:38 Anaerobic Blood Culture - Final Blood - Venous - Lab Draw 09/10/20 14:25 Anaerobic Blood Culture - Final Blood - Venous Problem List Initiated/Reviewed/Updated: Yes Orders Last 24hrs: Active Orders 24 hr Category Date Time Status Patient Status [ADT] Routine ADT 09/10/20 17:35 Ordered Oxygen Therapy [RC] PRN Care 09/10/20 17:35 Ordered VTE/DVT Education [RC] PER UNIT ROUTINE Care 09/10/20 17:35 Ordered Vital Signs [RC] Q4H Care 09/10/20 17:35 Ordered CBC WITH AUTO DIFF [HEME] AM Lab 09/11/20 05:11 Ordered COMPREHENSIVE METABOLIC PN,CMP [CHEM] AM Lab 09/11/20 05:11 Ordered CULTURE BLOOD [BC] Stat Lab 09/10/20 14:25 Results CULTURE BLOOD [BC] Stat Lab 09/10/20 14:38 Results CULTURE URINE [RM] Stat Lab 09/10/20 15:19 Received MAGNESIUM [CHEM] AM Lab 09/11/20 05:11 Ordered PHOSPHORUS [CHEM] AM Lab 09/11/20 05:11 Ordered Acetaminophen [TylenoL] Med 09/10/20 17:44 Ordered 650 mg PO Q4H PRN Enoxaparin [Lovenox] Med 09/11/20 09:00 Ordered 40 mg SUBCUT DAILY FLUoxetine [PROzac] Med 09/11/20 09:00 Ordered 10 mg PO DAILY Famotidine [Pepcid] Med 09/10/20 21:00 Ordered 20 mg IVPUSH BID Ketorolac [Toradol] Med 09/10/20 17:44 Ordered 30 mg IVPUSH Q6H PRN Ondansetron [Zofran ODT] Med 09/10/20 17:44 Ordered 4 mg PO Q4H PRN Sodium Chloride 0.9% @ 125 MLS/HR (1000ml) Med 09/10/20 17:45 Ordered Sodium Chloride 0.9% [Normal Saline] 1,000 ml IV ASDIRECTED Topiramate [Topamax] Med 09/10/20 21:00 Ordered 50 mg PO BID cefTRIAXone [Rocephin] 1 gm Med 09/11/20 18:00 Ordered Sodium Chloride 0.9% [Normal Saline] 50 ml IV Q24H Blood Culture x2 Reflex Set [OM.PC] Stat Oth 09/10/20 14:12 Ordered Resuscitation Status Routine Resus Stat 09/10/20 17:34 Ordered Medication Orders Acetaminophen (Acetaminophen 325 Mg Tab) 650 mg PO Q4H PRN PRN Reason: Pain (Mild 1-3)/fever Enoxaparin Sodium (Enoxaparin 40 Mg/0.4 Ml Syringe) 40 mg SUBCUT DAILY [facility] Famotidine (Famotidine 20 Mg/2 Ml Sdv) 20 mg IVPUSH BID [facility] Fluoxetine HCl (Fluoxetine 10 Mg Cap) 10 mg PO DAILY [facility] Sodium Chloride (Normal Saline) 1,000 mls @ 125 mls/hr IV ASDIRECTED [facility] Ceftriaxone Sodium 1 gm/ (Sodium Chloride) 50 mls @ 100 mls/hr IV Q24H [facility] Ketorolac Tromethamine (Ketorolac 30 Mg/Ml Sdv) 30 mg IVPUSH Q6H PRN PRN Reason: Pain (moderate 4-6) Ondansetron HCl (Ondansetron 4 Mg Tab.Dis) 4 mg PO Q4H PRN PRN Reason: nausea, able to take PO Topiramate (Topiramate 25 Mg Tab) 50 mg PO BID [facility] Assessment/Plan Comment:: #sepsis 2/2 UTI - presumed dx given left shift, tachycardia (sepsis criteria), +UA, recent urinary instrumentation - that being said symptoms and physical exam more suggestive of gastroenteritis vs passing stone - will c/w ceftriaxone, fluid resuscitation, await cultures, prn zofran and analgesia PPX - LMWH
[2020-09-10] MEDS: Ondansetron 4 MG Tab.DIS PO PRN (18:34)
[2020-09-10] MEDS: Ketorolac 30 MG/ML SDV IVPUSH PRN (18:34)
[2020-09-10] MEDS: Sodium Chloride 0.9% 1,000 ML IV SCH (18:45)
[2020-09-10] MEDS: Acetaminophen 325 MG Tab PO PRN (20:43)
[2020-09-10] MEDS: Topiramate 25 MG Tab PO SCH (20:44)
[2020-09-10] MEDS: Famotidine 20 MG/2 ML SDV IVPUSH SCH (20:45)
[2020-09-11] MEDS: Ondansetron 4 MG Tab.DIS PO PRN ×2 (01:39→07:05)
[2020-09-11] MEDS: Sodium Chloride 0.9% 1,000 ML IV SCH (03:02)
[2020-09-11] MEDS: Ketorolac 30 MG/ML SDV IVPUSH PRN (03:02)
[2020-09-11 06:57] LABS: ANION GAP 16.8 mEq/L (7-13); CHLORIDE,CL 109 mmol/L (98-107); SODIUM,NA 143 mmol/L (136-145)
[2020-09-11] MEDS ORDERED: Potassium Chloride 10 MEQ Tab.ER PO ONE (10:14)
[2020-09-11] MEDS: Topiramate 25 MG Tab PO SCH ×2 (10:25→22:51)
[2020-09-11] MEDS: Famotidine 20 MG/2 ML SDV IVPUSH SCH ×2 (10:25→22:52)
[2020-09-11] MEDS: FLUoxetine 10 MG Cap PO SCH (10:25)
[2020-09-11] MEDS: Enoxaparin 40 MG/0.4 ML Syringe SUBCUT SCH (10:26)
[2020-09-11] MEDS: Morphine 4 MG/ML Syringe IVPUSH PRN ×2 (10:26→18:51)
[2020-09-11] MEDS: NS + KCl 20mEq/L 1,000 ML IV SCH ×2 (12:02→21:06)
[2020-09-11] MEDS: Acetaminophen 325 MG Tab PO PRN (13:18)
[2020-09-11] MEDS ORDERED: cefTRIAXone 1 GM in Sodium Chloride 0.9% 50 ML IV SCH (18:00)
[2020-09-11] MEDS ORDERED: LORazepam 2 MG/ML SDV IVPUSH ONE (19:58)
[2020-09-11] MEDS ORDERED: Barium Sulfate w/v 2.1% Oral Susp 450 ML Bottle PO ONE (20:13)
[2020-09-11] MEDS ORDERED: Iopamidol 612 MG/ML 100 ML Bottle IVPUSH ONE (20:13)
--- NOTE | 2020-09-11 22:38 | CT ---
PROCEDURE INFORMATION: Exam: CT Abdomen And Pelvis With Contrast Exam date and time: 09/11/2020 9:42 PM Age: 49 years old Clinical indication: Vomiting; Abdominal pain; Generalized; Prior surgery; Surgery date: <1 month; Surgery type: Gallbladder and renal stone removal; Additional info: Diffuse abd pain and vomiting TECHNIQUE: Imaging protocol: Computed tomography of the abdomen and pelvis with contrast. Radiation optimization: All CT scans at this facility use at least one of these dose optimization techniques: automated exposure control; mA and/or kV adjustment per patient size (includes targeted exams where dose is matched to clinical indication); or iterative reconstruction. Contrast material: ISOVUE 300; Contrast volume: 75 ml; Contrast route: INTRAVENOUS (IV); Other contrast: Oral, Readicat, 900; COMPARISON: CT Abdomen Pelvis wo Cont 09/10/2020 3:50 PM FINDINGS: Limitations: Study is partially limited by respiratory motion. Lungs: There is subpleural atelectasis of the dependent portions of the lungs. Lung bases are clear. Liver: Normal. No mass. Gallbladder and bile ducts: Prior cholecystectomy. Mild intra-and extrahepatic biliary ductal dilation is most likely the sequela of prior cholecystectomy in the absence of clinical symptomatology. Pancreas: Normal. No ductal dilation. Spleen: Normal. No splenomegaly. Adrenal glands: Normal. No mass. Kidneys and ureters: There is a left renal collecting system calcification. The kidneys are otherwise unremarkable. The ureters are normal. Stomach and bowel: No bowel obstruction or significant bowel wall thickening. Appendix: No evidence of appendicitis. Intraperitoneal space: Unremarkable. No free air. No significant fluid collection. Vasculature: Unremarkable. No abdominal aortic aneurysm. Lymph nodes: Unremarkable. No enlarged lymph nodes. Urinary bladder: Unremarkable as visualized. Reproductive: Nabothian cysts are suggested in the cervix, stable. 2.6 cm cyst in the right adnexa. 2.8 cm cyst in the left adnexa. Consider correlation with nonemergent ultrasound. Bones/joints: No acute skeletal pathology. Mild multilevel degenerative changes of the spine, as manifested by multilevel anterior osteophytes and multilevel decrease in intervertebral disc space. Soft tissues: Chronic postsurgical scarring in the ventral abdominal wall subcutaneous tissues. Soft tissue emphysema in the right lower quadrant ventral abdominal wall subcutaneous fat, most probably related to recent injection. IMPRESSION: 1. Negative for acute abdominopelvic pathology. 2. Incidental findings as detailed above.
--- NOTE | 2020-09-11 23:19 | PCM.PN ---
- General Info Date of Service: 09/11/20 Subjective Update: Mom assisting w/ interview. Pt c/o constant but at times episodic severe, diffuse abdominal pain. This has led to at least one panic attack. Still having diarrhea and dry heaving. - Patient Data Vitals - Most Recent: Last Vital Signs Temp 98.3 F 09/11/20 12:00 Pulse 64 09/11/20 12:00 Resp 20 09/11/20 12:00 BP 101/56 L 09/11/20 12:00 Pulse Ox 100 09/11/20 12:00 Weight - Most Recent: 150 lb I&O - Last 24 Hours: Intake & Output 09/11/20 09/11/20 09/12/20 14:59 22:59 06:59 Intake Total 1944 Balance 1944 Lab Results Last 24 Hours: Laboratory Results - last 24 hr 09/11/20 09/11/20 Range/Units 06:05 06:05 WBC 5.9 (5.0-10.0) 10^3/uL RBC 3.61 L (4.2-5.4) 10^6/uL Hgb 10.5 L D (12.0-16.0) g/dL Hct 33.3 L (37.0-47.0) % MCV 92.2 (80-100) fL MCH 29.1 (27.0-34.0) pg MCHC 31.5 L (33.0-35.0) g/dL Plt Count 227 (150-450) 10^3/uL Neut % (Auto) 73.4 (42.2-75.2) % Lymph % (Auto) 15.6 L (20.5-50.1) % [place] % (Auto) 9.3 H (2-8) % Eos % (Auto) 1.7 (1.0-3.0) % Baso % (Auto) 0.0 (0.0-1.0) % Sodium 143 (136-145) mmol/L Potassium 2.8 L (3.5-5.1) mmol/L Chloride 109 H (98-107) mmol/L Carbon Dioxide 20 L (21-32) mmol/L Anion Gap 16.8 H (7-13) mEq/L BUN 12 (7-18) mg/dL Creatinine 0.72 (0.55-1.02) mg/dL Est Cr Clr Drug Dosing 85.98 mL/min Estimated GFR (MDRD) > 60 BUN/Creatinine Ratio 16.7 (No establ ref range) Glucose 94 (70-99) mg/dL Calcium 7.0 L D (8.5-10.1) mg/dL Phosphorus 2.3 L (2.6-4.7) mg/dL Magnesium 1.5 L (1.8-2.4) mg/dL Total Bilirubin 0.3 (0.2-1.0) mg/dL AST 15 (15-37) U/L ALT 28 (14-59) U/L Alkaline Phosphatase 85 (46-116) U/L Total Protein 5.2 L (6.4-8.2) g/dL Albumin 2.7 L (3.4-5.0) g/dL Globulin 2.5 Albumin/Globulin Ratio 1.08 Will Results Last 24 Hours: Microbiology 09/11/20 19:10 Anaerobic Blood Culture - Final Blood - Arm, Right 09/11/20 14:18 Stool Occult Blood (WILL) - Final Stool / Feces 09/10/20 14:38 Aerobic Blood Culture - Preliminary Blood - Venous - Lab Draw NO GROWTH AFTER 1 DAY Anaerobic Blood Culture - Final 09/10/20 14:25 Aerobic Blood Culture - Preliminary Blood - Venous NO GROWTH AFTER 1 DAY Anaerobic Blood Culture - Final 09/10/20 15:19 Urine Culture - Preliminary Urine, Voided Med Orders - Current: Current Medications Acetaminophen (Acetaminophen 325 Mg Tab) 650 mg PO Q4H PRN PRN Reason: Pain (Mild 1-3)/fever Last Admin: 09/11/20 13:18 Dose: 650 mg Documented by: Enoxaparin Sodium (Enoxaparin 40 Mg/0.4 Ml Syringe) 40 mg SUBCUT DAILY [facility] Last Admin: 09/11/20 10:26 Dose: 40 mg Documented by: Famotidine (Famotidine 20 Mg/2 Ml Sdv) 20 mg IVPUSH BID [facility] Last Admin: 09/11/20 22:52 Dose: 20 mg Documented by: Fluoxetine HCl (Fluoxetine 10 Mg Cap) 10 mg PO DAILY [facility] Last Admin: 09/11/20 10:25 Dose: 10 mg Documented by: Ceftriaxone Sodium 1 gm/ (Sodium Chloride) 50 mls @ 100 mls/hr IV Q24H [facility] Last Admin: 09/11/20 18:28 Dose: 100 mls/hr Documented by: Potassium Chloride/Sodium Chloride (Normal Saline With 20 Meq Kcl) 1,000 mls @ 125 mls/hr IV ASDIRECTED [facility] Last Admin: 09/11/20 21:06 Dose: 125 mls/hr Documented by: Ketorolac Tromethamine (Ketorolac 30 Mg/Ml Sdv) 30 mg IVPUSH Q6H PRN PRN Reason: Pain (moderate 4-6) Last Admin: 09/11/20 03:02 Dose: 30 mg Documented by: Morphine Sulfate (Morphine 4 Mg/Ml Syringe) 4 mg IVPUSH Q4H PRN PRN Reason: Pain (severe 7-10) Last Admin: 09/11/20 18:51 Dose: 4 mg Documented by: Ondansetron HCl (Ondansetron 4 Mg Tab.Dis) 4 mg PO Q4H PRN PRN Reason: nausea, able to take PO Last Admin: 09/11/20 07:05 Dose: 4 mg Documented by: Topiramate (Topiramate 25 Mg Tab) 50 mg PO BID [facility] Last Admin: 09/11/20 22:51 Dose: 50 mg Documented by: Discontinued Medications Barium Sulfate (Barium Sulfate W/V 2.1% Oral Susp 450 Ml Bottle) 900 ml PO ONETIME ONE Stop: 09/11/20 20:14 Last Admin: 09/11/20 20:27 Dose: 900 ml Documented by: Hydromorphone HCl (Hydromorphone 0.5 Mg/0.5 Ml Syringe) 0.5 mg IVPUSH ONETIME ONE Stop: 09/10/20 14:54 Last Admin: 09/10/20 15:02 Dose: 0.5 mg Documented by: Sodium Chloride (Normal Saline) 1,000 mls @ 999 mls/hr IV .BOLUS ONE Stop: 09/10/20 15:35 Last Admin: 09/10/20 14:49 Dose: 999 mls/hr Documented by: Ceftriaxone Sodium 1 gm/ (Sodium Chloride) 50 mls @ 100 mls/hr IV ONETIME ONE Stop: 09/10/20 16:45 Last Admin: 09/10/20 16:24 Dose: 100 mls/hr Documented by: Sodium Chloride (Normal Saline) 1,000 mls @ 999 mls/hr IV .BOLUS ONE Stop: 09/10/20 17:31 Last Infusion: 09/10/20 18:45 Dose: 999 mls/hr Documented by: Sodium Chloride (Normal Saline) 1,000 mls @ 125 mls/hr IV ASDIRECTED [facility] Last Infusion: 09/11/20 11:58 Dose: Infused Documented by: Iopamidol (Iopamidol 612 Mg/Ml 100 Ml Bottle) 100 ml IVPUSH ONETIME ONE Stop: 09/11/20 20:14 Lorazepam (Lorazepam 2 Mg/Ml Sdv) 1 mg IVPUSH ONETIME ONE Stop: 09/11/20 19:59 Last Admin: 09/11/20 20:27 Dose: 1 mg Documented by: Metoclopramide HCl (Metoclopramide 10 Mg/2 Ml Sdv) 10 mg IVPUSH ONETIME ONE Stop: 09/10/20 16:18 Last Admin: 09/10/20 16:24 Dose: 10 mg Documented by: Ondansetron HCl (Ondansetron 4 Mg/2 Ml Sdv) 4 mg IV ONETIME ONE Stop: 09/10/20 14:36 Last Admin: 09/10/20 14:49 Dose: 4 mg Documented by: Potassium Chloride (Potassium Chloride 10 Meq Tab.Er) 40 meq PO ONETIME ONE Stop: 09/11/20 10:15 Last Admin: 09/11/20 10:30 Dose: 40 meq Documented by: - Exam General: Alert, Oriented, Mild Distress HEENT: Pupils Equal Neck: Supple Lungs: Clear to Auscultation Cardiovascular: Regular Rate, Regular Rhythm GI/Abdominal Exam: Normal Bowel Sounds, Soft, No Distention, Other (diffusely tender to even light touch) Back Exam: Normal Inspection Extremities: No Pedal Edema Skin: Warm, Dry, Intact Wound/Incisions: Healing Well Neurological: No New Focal Deficit Psy/Mental Status: Alert, Normal Affect - Patient Data Lab Results Last 24 hrs: Laboratory Results - last 24 hr 09/11/20 09/11/20 Range/Units 06:05 06:05 WBC 5.9 (5.0-10.0) 10^3/uL RBC 3.61 L (4.2-5.4) 10^6/uL Hgb 10.5 L D (12.0-16.0) g/dL Hct 33.3 L (37.0-47.0) % MCV 92.2 (80-100) fL MCH 29.1 (27.0-34.0) pg MCHC 31.5 L (33.0-35.0) g/dL Plt Count 227 (150-450) 10^3/uL Neut % (Auto) 73.4 (42.2-75.2) % Lymph % (Auto) 15.6 L (20.5-50.1) % [place] % (Auto) 9.3 H (2-8) % Eos % (Auto) 1.7 (1.0-3.0) % Baso % (Auto) 0.0 (0.0-1.0) % Sodium 143 (136-145) mmol/L Potassium 2.8 L (3.5-5.1) mmol/L Chloride 109 H (98-107) mmol/L Carbon Dioxide 20 L (21-32) mmol/L Anion Gap 16.8 H (7-13) mEq/L BUN 12 (7-18) mg/dL Creatinine 0.72 (0.55-1.02) mg/dL Est Cr Clr Drug Dosing 85.98 mL/min Estimated GFR (MDRD) > 60 BUN/Creatinine Ratio 16.7 (No establ ref range) Glucose 94 (70-99) mg/dL Calcium 7.0 L D (8.5-10.1) mg/dL Phosphorus 2.3 L (2.6-4.7) mg/dL Magnesium 1.5 L (1.8-2.4) mg/dL Total Bilirubin 0.3 (0.2-1.0) mg/dL AST 15 (15-37) U/L ALT 28 (14-59) U/L Alkaline Phosphatase 85 (46-116) U/L Total Protein 5.2 L (6.4-8.2) g/dL Albumin 2.7 L (3.4-5.0) g/dL Globulin 2.5 Albumin/Globulin Ratio 1.08 Result Diagrams: 09/11/20 06:05 09/11/20 06:05 Will Results Last 24 hrs: Microbiology 09/11/20 19:10 Anaerobic Blood Culture - Final Blood - Arm, Right 09/11/20 14:18 Stool Occult Blood (WILL) - Final Stool / Feces 09/10/20 14:38 Aerobic Blood Culture - Preliminary Blood - Venous - Lab Draw NO GROWTH AFTER 1 DAY Anaerobic Blood Culture - Final 09/10/20 14:25 Aerobic Blood Culture - Preliminary Blood - Venous NO GROWTH AFTER 1 DAY Anaerobic Blood Culture - Final 09/10/20 15:19 Urine Culture - Preliminary Urine, Voided Sepsis Event Note - Evaluation Sepsis Screening Result: No Definite Risk - Focused Exam Vital Signs: Vital Signs Temp Pulse Resp BP Pulse Ox 09/11/20 12:00 98.3 F 64 20 101/56 L 100 - Problem List Review Problem List Initiated/Reviewed/Updated: Yes - My Orders Last 24 Hours: My Active Orders 09/11/20 09:00 Enoxaparin [Lovenox] 40 mg SUBCUT DAILY FLUoxetine [PROzac] 10 mg PO DAILY 09/11/20 09:19 Morphine 4 mg IVPUSH Q4H PRN 09/11/20 10:21 Activity as Tolerated [RC] .Routine 09/11/20 11:00 NS + KCl 20mEq/L [Normal Saline with 20 mEq KCl] 1,000 ml IV ASDIRECTED 09/11/20 Lunch Clear Liquid Diet [DIET] 09/11/20 14:18 CLOSTRIDIUM DIFFICILE TOX RFLX [MREF] Stat CULTURE STOOL [RM] Routine SHIGA TOXIN 1 & 2 [MREF] Routine 09/11/20 14:24 Isolation [COMM] Stat 09/11/20 18:00 cefTRIAXone [Rocephin] 1 gm Sodium Chloride 0.9% [Normal Saline] 50 ml IV Q24H 09/11/20 18:47 Blood Culture x2 Reflex Set [OM.PC] Stat 09/11/20 19:04 CULTURE BLOOD [BC] Stat 09/11/20 19:10 CULTURE BLOOD [BC] Stat 09/12/20 05:11 AMYLASE [CHEM] AM CBC WITH AUTO DIFF [HEME] AM COMPREHENSIVE METABOLIC PN,CMP [CHEM] AM LIPASE [CHEM] AM - Plan Plan:: #abdominal pain - physical exam is fairly benign and not at all consistent w/ passing stone or pyelo - ?gastroenteritis since there is a bug passing through the local community - stool samples have been sent - diagnostic uncertainty compounded by difficulty to communicate w/ the patient - check CT abd/pelvis w/ IV and oral contrast tonight #panic attacks - prn ativan worked well for her #sepsis 2/2 UTI - c/w ceftriaxone - urine culture growing GNR PPX - LMWH
[2020-09-12] MEDS: Ketorolac 30 MG/ML SDV IVPUSH PRN ×2 (02:33→14:58)
[2020-09-12] MEDS: Ondansetron 4 MG Tab.DIS PO PRN ×2 (02:48→14:57)
[2020-09-12] MEDS ORDERED: LORazepam 2 MG/ML SDV IVPUSH STA (03:23)
[2020-09-12] MEDS: Morphine 4 MG/ML Syringe IVPUSH PRN ×2 (03:36→11:19)
[2020-09-12] MEDS: NS + KCl 20mEq/L 1,000 ML IV SCH ×2 (06:18→14:59)
[2020-09-12 08:02] LABS: ANION GAP 17.5 mEq/L (7-13); CHLORIDE,CL 114 mmol/L (98-107); SODIUM,NA 148 mmol/L (136-145)
[2020-09-12] MEDS ORDERED: Dicyclomine 10 MG Cap PO ONE (10:12)
[2020-09-12] MEDS ORDERED: Florastor Probiotic Cap PO SCH (10:30)
[2020-09-12] MEDS: FLUoxetine 10 MG Cap PO SCH (10:38)
[2020-09-12] MEDS: Enoxaparin 40 MG/0.4 ML Syringe SUBCUT SCH (10:38)
[2020-09-12] MEDS: Topiramate 25 MG Tab PO SCH (10:39)
[2020-09-12] MEDS: Famotidine 20 MG/2 ML SDV IVPUSH SCH (10:42)
[2020-09-12] MEDS: Acetaminophen 325 MG Tab PO PRN (10:58)
--- NOTE | 2020-09-12 11:36 | PCM.EKG ---
#1 Interpretation EKG Date: 09/12/20 Time: 11:21 Rhythm: NSR Rate (Beats/Min): 66 [place]: Normal P-Wave: Present QRS: Normal ST-T: Normal QT: Normal EKG Interpretation Comments: no acute ischemia - normal EKG
--- NOTE | 2020-09-12 12:13 | CR ---
EXAMINATION: Chest 1V Frontal SEX: Female AGE: 49 years CLINICAL HISTORY: 49-year-old female acute onset chest pain. No comparison CXR immediately available. INTERPRETATION: Negative. No acute cardiopulmonary abnormality. 1. Normal cardiac silhouette (size and configuration). 2. [place] thorax unremarkable. 3. No pulmonary vascular congestion, cephalization of flow, alveolar edema or dependent pleural effusion. 4. No lung mass or hilar lymphadenopathy. 5. No alveolar infiltrates. No peripheral groundglass" interstitial lung densities. 6. No pneumothorax or pneumomediastinum. No free subdiaphragmatic air.
[2020-09-12 12:17] LABS: ANION GAP 16.3 mEq/L (7-13); CHLORIDE,CL 113 mmol/L (98-107); SODIUM,NA 147 mmol/L (136-145)
--- NOTE | 2020-09-12 15:50 | PCM.DCSUM1 ---
Discharge Summary - Hospital Course Free Text/Narrative:: 09/10 HPI: 49F w/ pmh congenital deafness, kidney stones s/p lithotripsy and stenting ~3 weeks ago, s/p lap cholecystectomy 08/29, s/p left kidney stent removal 1 week ago p/w left flank pain. Pts mother translating in sign language. Pt states she had acute onset left flank pain starting at 4 am. This is associated w/ urinary 'itching', nausea, vomiting x4 and dry heaving, watery diarrhea x4 and chills. Denies hematuria. Pain has now become more generalized abdominal. 09/10-09/12: The CT abdomen w/o contrast done on admission showed a tiny, non- obstructive stone in the left renal pelvis and s/p cholecystectomy but otherwise no acute findings. Given initial complaint of left flank pain, 10-20 WBC / 5-10 RBC on the UA, and recent instrumentation the pt was started on ceftriaxone for possible UTI. Immediately upon admission however it became apparent that her symptoms and exam are not consistent w/ a pathology. On exam despite the abdomen being soft and non distended she c/o exaggerated pain even to mild touch of the skin. The examiner was frequently able to abolish this finding during a distracted exam. Laboratory testing found normal LFTs and pancreatic enzymes, lactic acid, normal WBC count, mild anemia w/ Hb 10 and stable, normal chemistry. All the meanwhile the pt c/o dry heaving and watery diarrhea. Stool cultures found normal glory, negative for occult blood, Cdiff testing still pending (send out). The second hospital day the pt was no longer having any vomiting just intractable, generalized abdominal pain. Urine culture grew king- sensitive Ecoli and ceftriaxone was continued. Given intractable symptoms pt underwent a CT abdomen this time w/ IV and PO contrast. This found no acute pathology. Overnight the pt had some relief w/ repeat doses of ativan given what seemed like panic attacks w/ exaggerated tremor and 'arm pain' and 'pain all over'. Going into third hospital stay she continues to c/o intractable, generalized abdominal pain and demonstrates abdominal sensitivity even to slight touch. She continues to have episodes of agitation w/ b/l arm tremor. Finally pt had an episode of acute onset, substernal chest pain which is tender to light touch as well. EKG done is NSR 60s w/ no acute ischemic changes. Troponins are negative thus far and there has been no tele events. Notably, the pt found a soothing relief in her symptoms after taking a hot shower. Otherwise her symptoms have been refractory to morphine, pantoprazole, pepcid, zofran, dicyclomine, and toradol. I conferred my suspected dx of cyclical vomiting syndrome spectrum related to her likely anxiety and panic attacks and offered treatment w/ aggressive anxiolytics. I also offered the pt an abdominal ultrasound since the only tangible test finding up to today was a bump in LFTs to 65/101. She agreed but both pt and mother (legal guardian) demand transfer to a higher level of care. The pt was accepted to the medicine service at [facility] by Dr White. - Discharge Data Discharge Date: 09/12/20 Discharge Disposition: DC/Tfer to Acute Hospital 02 Condition: Good - Referral to Home Health Primary Care Physician: [facility] - Discharge Plan *PRESCRIPTION DRUG MONITORING PROGRAM REVIEWED*: No *COPY OF PRESCRIPTION DRUG MONITORING REPORT IN PATIENT NETTIE: No Prescriptions/Med Rec: Pantoprazole Sodium [Protonix IV] 40 mg IV DAILY #30 vial Home Medications: Home Meds FLUoxetine [PROzac] 10 mg PO DAILY 07/17/20 [History] Propranolol [Inderal] 20 mg PO DAILY 07/17/20 [History] Topiramate [Topamax] 50 mg PO BID 07/17/20 [History] Acetaminophen [Tylenol] 650 mg PO Q4H PRN tablet 09/12/20 [Rx] Enoxaparin [Lovenox] 40 mg SUBCUT DAILY syringe 09/12/20 [Rx] Famotidine [Pepcid] 20 mg IVPUSH BID sdv 09/12/20 [Rx] Morphine 4 mg IVPUSH Q4H PRN syringe 09/12/20 [Rx] NS + KCl 20mEq/L [Normal Saline with 20 mEq KCl] 125 ml IV ASDIRECTED bag 09/12/20 [Rx] Non-Formulary Medication [NF Drug] 0 each PO BID each 09/12/20 [Rx] Ondansetron [Zofran ODT] 4 mg PO Q4H PRN tab.dis 09/12/20 [Rx] Pantoprazole Sodium [Protonix IV] 40 mg IV DAILY #30 vial 09/12/20 [Rx] cefTRIAXone [Rocephin] 1 gm IV Q24H vial 09/12/20 [Rx] Forms: ED Department Discharge - Discharge Summary/Plan Comment DC Time >30 min.: Yes (45 min) - Patient Data Vitals - Most Recent: Last Vital Signs Temp 97.2 F 09/12/20 08:00 Pulse 79 09/12/20 11:33 Resp 18 09/12/20 11:33 BP 149/75 H 09/12/20 11:33 Pulse Ox 100 09/12/20 11:33 Weight - Most Recent: 150 lb I&O - Last 24 hours: Intake & Output 09/12/20 09/12/20 09/12/20 06:59 14:59 22:59 Intake Total 1000 Balance 1000 Lab Results - Last 24 hrs: Laboratory Results - last 24 hr 09/12/20 09/12/20 09/12/20 Range/Units 06:30 06:30 11:49 WBC 5.9 5.1 (5.0-10.0) 10^3/uL RBC 3.47 L 3.74 L (4.2-5.4) 10^6/uL Hgb 10.0 L 10.8 L (12.0-16.0) g/dL Hct 31.9 L 34.5 L (37.0-47.0) % MCV 91.9 92.2 (80-100) fL MCH 28.8 28.9 (27.0-34.0) pg MCHC 31.3 L 31.3 L (33.0-35.0) g/dL Plt Count 204 219 (150-450) 10^3/uL Neut % (Auto) 63.5 (42.2-75.2) % Lymph % (Auto) 21.4 (20.5-50.1) % [place] % (Auto) 8.3 H (2-8) % Eos % (Auto) 6.5 H (1.0-3.0) % Baso % (Auto) 0.3 (0.0-1.0) % Sodium 148 H (136-145) mmol/L Potassium 3.5 (3.5-5.1) mmol/L Chloride 114 H (98-107) mmol/L Carbon Dioxide 20 L (21-32) mmol/L Anion Gap 17.5 H (7-13) mEq/L BUN 3 L (7-18) mg/dL Creatinine 0.58 (0.55-1.02) mg/dL Est Cr Clr Drug Dosing 106.74 mL/min Estimated GFR (MDRD) > 60 BUN/Creatinine Ratio 5.2 (No establ ref range) Glucose 79 (70-99) mg/dL Lactic Acid (0.4-2.0) mmol/L Calcium 7.1 L (8.5-10.1) mg/dL Total Bilirubin 0.2 (0.2-1.0) mg/dL AST 78 H (15-37) U/L ALT 95 H (14-59) U/L Alkaline Phosphatase 124 H (46-116) U/L Troponin I (0.000-0.056) ng/mL Total Protein 4.8 L (6.4-8.2) g/dL Albumin 2.5 L (3.4-5.0) g/dL Globulin 2.3 Albumin/Globulin Ratio 1.09 Amylase 27 (25-115) U/L Lipase 53 L (73-393) U/L 09/12/20/ Range/Units 11:49 11:49 WBC (5.0-10.0) 10^3/uL RBC (4.2-5.4) 10^6/uL Hgb (12.0-16.0) g/dL Hct (37.0-47.0) % MCV (80-100) fL MCH (27.0-34.0) pg MCHC (33.0-35.0) g/dL Plt Count (150-450) 10^3/uL Neut % (Auto) (42.2-75.2) % Lymph % (Auto) (20.5-50.1) % [place] % (Auto) (2-8) % Eos % (Auto) (1.0-3.0) % Baso % (Auto) (0.0-1.0) % Sodium 147 H (136-145) mmol/L Potassium 3.3 L (3.5-5.1) mmol/L Chloride 113 H (98-107) mmol/L Carbon Dioxide 21 (21-32) mmol/L Anion Gap 16.3 H (7-13) mEq/L BUN 2 L (7-18) mg/dL Creatinine 0.64 (0.55-1.02) mg/dL Est Cr Clr Drug Dosing 96.73 mL/min Estimated GFR (MDRD) > 60 BUN/Creatinine Ratio 3.1 (No establ ref range) Glucose 91 (70-99) mg/dL Lactic Acid 0.8 (0.4-2.0) mmol/L Calcium 7.5 L (8.5-10.1) mg/dL Total Bilirubin 0.2 (0.2-1.0) mg/dL AST 65 H (15-37) U/L ALT 101 H (14-59) U/L Alkaline Phosphatase 133 H (46-116) U/L Troponin I < 0.017 (0.000-0.056) ng/mL Total Protein 5.8 L (6.4-8.2) g/dL Albumin 2.8 L (3.4-5.0) g/dL Globulin 3.0 Albumin/Globulin Ratio 0.93 Amylase (25-115) U/L Lipase (73-393) U/L SLIME Results - Last 24 hrs: Microbiology 09/10/20 14:38 Aerobic Blood Culture - Preliminary Blood - Venous - Lab Draw NO GROWTH AFTER 2 DAYS Anaerobic Blood Culture - Final 09/10/20 14:25 Aerobic Blood Culture - Preliminary Blood - Venous NO GROWTH AFTER 2 DAYS Anaerobic Blood Culture - Final 09/11/20 14:18 Stool Culture - Preliminary Stool / Feces NORMAL ENTERIC GLORY 1 DAY 09/10/20 15:19 Urine Culture - Final Urine, Voided Escherichia Coli 09/11/20 19:10 Anaerobic Blood Culture - Final Blood - Arm, Right 09/11/20 14:18 Stool Occult Blood (SLIME) - Final Stool / Feces Med Orders - Current: Current Medications Acetaminophen (Acetaminophen 325 Mg Tab) 650 mg PO Q4H PRN PRN Reason: Pain (Mild 1-3)/fever Last Admin: 09/12/20 10:58 Dose: 650 mg Documented by: Enoxaparin Sodium (Enoxaparin 40 Mg/0.4 Ml Syringe) 40 mg SUBCUT DAILY [facility] Last Admin: 09/12/20 10:38 Dose: 40 mg Documented by: Famotidine (Famotidine 20 Mg/2 Ml Sdv) 20 mg IVPUSH BID [facility] Last Admin: 09/12/20 10:42 Dose: 20 mg Documented by: Fluoxetine HCl (Fluoxetine 10 Mg Cap) 10 mg PO DAILY [facility] Last Admin: 09/12/20 10:38 Dose: 10 mg Documented by: Ceftriaxone Sodium 1 gm/ (Sodium Chloride) 50 mls @ 100 mls/hr IV Q24H [facility] Last Admin: 09/11/20 18:28 Dose: 100 mls/hr Documented by: Potassium Chloride/Sodium Chloride (Normal Saline With 20 Meq Kcl) 1,000 mls @ 125 mls/hr IV ASDIRECTED [facility] Last Admin: 09/12/20 14:59 Dose: 125 mls/hr Documented by: Ketorolac Tromethamine (Ketorolac 30 Mg/Ml Sdv) 30 mg IVPUSH Q6H PRN PRN Reason: Pain (moderate 4-6) Last Admin: 09/12/20 14:58 Dose: 30 mg Documented by: Morphine Sulfate (Morphine 4 Mg/Ml Syringe) 4 mg IVPUSH Q4H PRN PRN Reason: Pain (severe 7-10) Last Admin: 09/12/20 11:19 Dose: 4 mg Documented by: Florastor Probiotic (Cap) 0 each PO BID [facility] Last Admin: 09/12/20 10:41 Dose: 1 each Documented by: Ondansetron HCl (Ondansetron 4 Mg Tab.Dis) 4 mg PO Q4H PRN PRN Reason: nausea, able to take PO Last Admin: 09/12/20 14:57 Dose: 4 mg Documented by: Topiramate (Topiramate 25 Mg Tab) 50 mg PO BID [facility] Last Admin: 09/12/20 10:39 Dose: 50 mg Documented by: Discontinued Medications Barium Sulfate (Barium Sulfate W/V 2.1% Oral Susp 450 Ml Bottle) 900 ml PO O NETIME ONE Stop: 09/11/20 20:14 Last Admin: 09/11/20 20:27 Dose: 900 ml Documented by: Dicyclomine HCl (Dicyclomine 10 Mg Cap) 20 mg PO ONETIME ONE Stop: 09/12/20 10:13 Last Admin: 09/12/20 10:40 Dose: 20 mg Documented by: Hydromorphone HCl (Hydromorphone 0.5 Mg/0.5 Ml Syringe) 0.5 mg IVPUSH ONETIME ONE Stop: 09/10/20 14:54 Last Admin: 09/10/20 15:02 Dose: 0.5 mg Documented by: Sodium Chloride (Normal Saline) 1,000 mls @ 999 mls/hr IV .BOLUS ONE Stop: 09/10/20 15:35 Last Admin: 09/10/20 14:49 Dose: 999 mls/hr Documented by: Ceftriaxone Sodium 1 gm/ (Sodium Chloride) 50 mls @ 100 mls/hr IV ONETIME ONE Stop: 09/10/20 16:45 Last Admin: 09/10/20 16:24 Dose: 100 mls/hr Documented by: Sodium Chloride (Normal Saline) 1,000 mls @ 999 mls/hr IV .BOLUS ONE Stop: 09/10/20 17:31 Last Infusion: 09/10/20 18:45 Dose: 999 mls/hr Documented by: Sodium Chloride (Normal Saline) 1,000 mls @ 125 mls/hr IV ASDIRECTED MEI Last Infusion: 09/11/20 11:58 Dose: Infused Documented by: Iopamidol (Iopamidol 612 Mg/Ml 100 Ml Bottle) 100 ml IVPUSH ONETIME ONE Stop: 09/11/20 20:14 Last Admin: 09/11/20 21:45 Dose: 75 ml Documented by: Lorazepam (Lorazepam 2 Mg/Ml Sdv) 1 mg IVPUSH ONETIME ONE Stop: 09/11/20 19:59 Last Admin: 09/11/20 20:27 Dose: 1 mg Documented by: Lorazepam (Lorazepam 2 Mg/Ml Sdv) 1 mg IVPUSH ONETIME STA Stop: 09/12/20 03:24 Last Admin: 09/12/20 03:35 Dose: 1 mg Documented by: Metoclopramide HCl (Metoclopramide 10 Mg/2 Ml Sdv) 10 mg IVPUSH ONETIME ONE Stop: 09/10/20 16:18 Last Admin: 09/10/20 16:24 Dose: 10 mg Documented by: Ondansetron HCl (Ondansetron 4 Mg/2 Ml Sdv) 4 mg IV ONETIME ONE Stop: 09/10/20 14:36 Last Admin: 09/10/20 14:49 Dose: 4 mg Documented by: Potassium Chloride (Potassium Chloride 10 Meq Tab.Er) 40 meq PO ONETIME ONE Stop: 09/11/20 10:15 Last Admin: 09/11/20 10:30 Dose: 40 meq Documented by:
[2020-09-12] MEDS ORDERED: LORazepam 2 MG/ML SDV IVPUSH ONE (16:36)
[2020-09-12] MEDS ORDERED: LORazepam 2 MG/ML SDV IV ONE (16:40)
--- NOTE | 2020-09-12 16:52 | US ---
PROCEDURE INFORMATION: Exam: US Abdomen Complete Exam date and time: 09/12/2020 4:05 PM Age: 49 years old Clinical indication: Abdominal pain; Acute; Prior surgery; Surgery date: <1 month; Surgery type: Gallbladder removed 3 weeks ago; Additional info: Intractable abdominal pain TECHNIQUE: Imaging protocol: Real-time ultrasound of the abdomen with image documentation. Total images: 84 COMPARISON: CT Abdomen Pelvis w Cont 09/11/2020 9:42 PM FINDINGS: Liver: No focal liver lesion. Gallbladder: Status post cholecystectomy. Common bile duct: Common bile duct measures 3 mm. Pancreas: Visualized pancreas is unremarkable. Right kidney: Right kidney 9.3 cm in length. No hydronephrosis. Left kidney: The left kidney measures 11.6 cm in length. Tiny echogenic focus within the mid left kidney suspicious for nonobstructing renal calculi. Spleen: Normal. No splenomegaly. Aorta: Visualized abdominal aorta normal in caliber. Inferior vena cava: IVC is not definitely visualized. IMPRESSION: 1. Suspect tiny nonobstructing left renal calculus. 2. Status post cholecystectomy. 3. No other evidence for acute process.
[2020-09-13] MEDS ORDERED: Pantoprazole 40 MG Vial IVPUSH SCH (09:00)
== END 2020-09-12 17:30 | DRG 872 ==
LOC: DL.ED 12:39 → DL.MS 16:59
PROVIDERS: ADMIT Internal Medicine; ATTEND Internal Medicine
DX: N12 Tubulo-interstitial nephritis, not specified as acute or chronic (principal); H90.5 Unspecified sensorineural hearing loss; A41.51 Sepsis due to Escherichia coli [E. coli]; N39.0 Urinary tract infection, site not specified; F41.9 Anxiety disorder, unspecified; R11.15 Cyclical vomiting syndrome unrelated to migraine; N20.0 Calculus of kidney; H91.90 Unspecified hearing loss, unspecified ear; E78.00 Pure hypercholesterolemia, unspecified; E66.9 Obesity, unspecified; D64.9 Anemia, unspecified; Z20.822 Contact with and (suspected) exposure to COVID-19; M19.90 Unspecified osteoarthritis, unspecified site; F41.0 Panic disorder [episodic paroxysmal anxiety]; R07.2 Precordial pain; R19.7 Diarrhea, unspecified; Z88.2 Allergy status to sulfonamides; Z79.899 Other long term (current) drug therapy; Z98.51 Tubal ligation status; Z28.82 Immunization not carried out because of caregiver refusal; Z87.442 Personal history of urinary calculi; Z68.25 Body mass index [BMI] 25.0-25.9, adult
CPT/HCPCS: 0240U; 36415; 71045; 74176; 74177; 76700; 80053; 81001; 82150; 82272; 83605; 83690; 83735; 84100; 84484; 85025; 85027; 85610; 86140; 87040; 87045; 87046; 87086; 87088; 87186; 87493; 87899; 93005; 93010; 99283; 96365; 96375; 99285-25; A9270-GY; J0696; J1170; J1650; J1885; J2060; J2270; J2405; J2765; J3480; J3490; J7030; Q9967

== ENCOUNTER 2021-02-11 20:20 | Emergency (ER) | payer MEDICARE, OTHER ==
[2021-02-11] MEDS ORDERED: Ondansetron 4 MG Tab.DIS PO ONE (20:21)
[2021-02-11] MEDS ORDERED: Acetaminophen/HYDROcodone 325-10 MG Tab PO ONE (20:21)
[2021-02-11] MEDS ORDERED: Ondansetron 4 MG/2 ML SDV IVPUSH ONE ×2 (20:37→21:58)
[2021-02-11] MEDS ORDERED: Sodium Chloride 0.9% 1,000 ML IV ONE (20:38)
[2021-02-11] MEDS ORDERED: HYDROmorphone 1 MG/ML Syringe IVPUSH ONE (20:49)
[2021-02-11 21:12] LABS: ANION GAP 16.5 mEq/L (7-13); CHLORIDE,CL 107 mmol/L (98-107); SODIUM,NA 141 mmol/L (136-145)
[2021-02-11] MEDS ORDERED: HYDROmorphone 0.5 MG/0.5 ML Syringe IVPUSH ONE (22:00)
[2021-02-11] MEDS ORDERED: Ketorolac 30 MG/ML SDV IVPUSH ONE (22:39)
--- NOTE | 2021-02-11 22:58 | CT ---
PROCEDURE INFORMATION: Exam: CT Abdomen And Pelvis Without Contrast Exam date and time: 02/11/2021 9:38 PM Age: 50 years old Clinical indication: Other: Pain mostly on left--hx renal stones; Additional info: Abdominal flank pain TECHNIQUE: Imaging protocol: Computed tomography of the abdomen and pelvis without contrast. Radiation optimization: All CT scans at this facility use at least one of these dose optimization techniques: automated exposure control; mA and/or kV adjustment per patient size (includes targeted exams where dose is matched to clinical indication); or iterative reconstruction. COMPARISON: CT Abdomen Pelvis w Cont 09/11/2020 9:42 PM FINDINGS: Liver: The liver is normal in architecture, without suspicious abnormality. Gallbladder and bile ducts: The gallbladder is surgically absent. Pancreas: The pancreatic parenchyma is normal in bulk and sharply marginated. Duct is not dilated. No calcifications, masses, or abnormal fluid collections. Spleen: Spleen is normal in size. No mass or fluid collection. Adrenal glands: There are no adrenal masses. Kidneys and ureters: Normal in parenchymal bulk. No hydronephrosis or asymmetric perinephric stranding. No solid masses. Two nonobstructing 2 mm stones of the left renal sinus. No ureteral calculi. Stomach and bowel: Stomach is decompressed. There appears to be thickening of the gastric body campbell to a maximum thickness of 1.8 cm. This was not seen previously and is suspicious for gastritis. There are no dilated or thickened small bowel loops. Gas and stool are present within colon to the rectum. Appendix: The appendix is seen. It is normal. Intraperitoneal space: No ascites. No abscess. No inflammation within the intra-abdominal fat. No pneumoperitoneum. No mass. Vasculature: No aneurysm. Lymph nodes: There are no enlarged celiac, mesenteric, periportal, extraperitoneal or inguinal lymph nodes. Urinary bladder: There is no bladder wall thickening, mass, or calculus. Reproductive: The uterus and ovaries are within normal limits. There are no adenexal masses. Bones/joints: Age appropriate spondylosis. There are no suspicious lytic or osteosclerotic lesions. There are no acute fractures. Soft tissues: Soft tissues are unremarkable. Other findings: Cluster of nabothian cervical cysts. IMPRESSION: Findings are suspicious for gastric body gastritis.
[2021-02-11] MEDS ORDERED: Tamsulosin 0.4 MG Cap.ER PO ONE (23:34)
[2021-02-11] MEDS ORDERED: Ciprofloxacin 500 MG Tab PO ONE (23:34)
--- NOTE | 2021-02-11 23:41 | EDM.PDOC ---
ED HPI GENERAL MEDICAL PROBLEM - General Chief Complaint: Abdominal Pain Stated Complaint: SEVER ABDOMINAL PAIN Time Seen by Provider: 02/11/21 20:30 Source of Information: Reports: Patient, Family History Limitations: Reports: No Limitations - History of Present Illness INITIAL COMMENTS - FREE TEXT/NARRATIVE: ED with c/o bilateral flank pain, mid abdominal pain greater on right. nausea no vomiting. Started this am but more severe prior to arrival no urinary sx but has had kidney stones in past - Related Data Allergies Allergy/AdvReac Type Severity Reaction Status Date / Time sulfacetamide Allergy Other Verified 09/10/20 17:16 Home Meds: Home Meds FLUoxetine [PROzac] 10 mg PO DAILY 07/17/20 [History] Propranolol [Inderal] 20 mg PO DAILY 07/17/20 [History] Topiramate [Topamax] 50 mg PO BID 07/17/20 [History] Acetaminophen [Tylenol] 650 mg PO Q4H PRN tablet 09/12/20 [Rx] Enoxaparin [Lovenox] 40 mg SUBCUT DAILY syringe 09/12/20 [Rx] Famotidine [Pepcid] 20 mg IVPUSH BID sdv 09/12/20 [Rx] Morphine 4 mg IVPUSH Q4H PRN syringe 09/12/20 [Rx] NS + KCl 20mEq/L [Normal Saline with 20 mEq KCl] 125 ml IV ASDIRECTED bag 09/12/20 [Rx] Non-Formulary Medication [NF Drug] 0 each PO BID each 09/12/20 [Rx] Ondansetron [Zofran ODT] 4 mg PO Q4H PRN tab.dis 09/12/20 [Rx] Pantoprazole Sodium [Protonix IV] 40 mg IV DAILY #30 vial 09/12/20 [Rx] cefTRIAXone [Rocephin] 1 gm IV Q24H vial 09/12/20 [Rx] Past Medical History HEENT History: Reports: Cataract, Hard of Hearing, Other (See Below) Other HEENT History: CONGENTIAL DEAFNESS Cardiovascular History: Reports: High Cholesterol Respiratory History: Reports: None Gastrointestinal History: Reports: None Genitourinary History: Reports: None, Renal Calculus, Other (See Below) Other Genitourinary History: Left uriter stent. out 09/04/20 [employer] History: Reports: None Musculoskeletal History: Reports: Arthritis, Other (See Below) Other Musculoskeletal History: Left knee Neurological History: Reports: Migraines Psychiatric History: Reports: Anxiety Endocrine/Metabolic History: Reports: Obesity/BMI 30+ Hematologic History: Reports: Anemia Immunologic History: Reports: None Oncologic (Cancer) History: Reports: None Dermatologic History: Reports: None - Infectious Disease History Infectious Disease History: Reports: Chicken Pox - Past Surgical History HEENT Surgical History: Reports: Oral Surgery Cardiovascular Surgical History: Reports: None Respiratory Surgical History: Reports: None GI Surgical History: Reports: None, EGD Female Surgical History: Reports: Tubal Ligation Endocrine Surgical History: Reports: None Neurological Surgical History: Reports: None Musculoskeletal Surgical History: Reports: None Oncologic Surgical History: Reports: None Dermatological Surgical History: Reports: None Social & Family History - Family History Family Medical History: No Pertinent Family History - Tobacco Use Tobacco Use Status *Q: Never Tobacco User - Caffeine Use Caffeine Use: Reports: Coffee, Soda, Tea Other Caffeine Use: COCA COLA 1 CAN DAILY ED ROS GENERAL - Review of Systems Review Of Systems: Comprehensive ROS is negative, except as noted in HPI. ED EXAM, RENAL/ - Physical Exam Exam: See Below Exam Limited By: No Limitations General Appearance: Alert, No Apparent Distress Eye Exam: Bilateral Eye: EOMI Ears: Hearing Loss (deaf) Nose: Normal Inspection Throat/Mouth: Normal Inspection Head: Atraumatic, Normocephalic Neck: Normal Inspection Respiratory/Chest: No Respiratory Distress, Lungs Clear, Normal Breath Sounds Cardiovascular: Normal Peripheral Pulses, Regular Rate, Rhythm GI/Abdominal: Normal Bowel Sounds, Soft, Tender (mid abdominal) Back Exam: CVA Tenderness (L), CVA Tenderness (R) Neurological: Alert, Oriented, Normal Cognition Psychiatric: Anxious Skin Exam: Warm, Dry, Intact, Normal Color Course - Vital Signs Text/Narrative:: improvement with dilaudid, more relaxed, decreased pain with toradol. some nausea retching no emesis. Results of labs and CT discussed with mother who signed translation to patient Last Recorded V/S: Last Vital Signs Temp 97.9 F 02/11/21 20:33 Pulse 77 02/11/21 20:33 Resp 20 02/11/21 20:33 BP 146/86 H 02/11/21 20:33 Pulse Ox 95 02/11/21 20:33 - Orders/Labs/Meds Orders: Active Orders 24 hr Category Date Time Status CULTURE BLOOD [BC] Stat Lab 02/11/21 20:45 Results CULTURE URINE [RM] Routine Lab 02/11/21 20:50 Received Labs: Laboratory Tests 02/11/21 02/11/21 02/11/21 Range/Units 20:45 20:45 20:45 WBC 10.1 H (5.0-10.0) 10^3/uL RBC 4.19 L (4.2-5.4) 10^6/uL Hgb 11.5 L (12.0-16.0) g/dL Hct 36.2 L (37.0-47.0) % MCV 86.4 D (80-100) fL MCH 27.4 (27.0-34.0) pg MCHC 31.8 L (33.0-35.0) g/dL Plt Count 326 D (150-450) 10^3/uL Neut % (Auto) 64.2 (42.2-75.2) % Lymph % (Auto) 25.1 (20.5-50.1) % [place] % (Auto) 9.3 H (2-8) % Eos % (Auto) 1.2 (1.0-3.0) % Baso % (Auto) 0.2 (0.0-1.0) % Sodium 141 (136-145) mmol/L Potassium 3.5 (3.5-5.1) mmol/L Chloride 107 (98-107) mmol/L Carbon Dioxide 21 (21-32) mmol/L Anion Gap 16.5 H (7-13) mEq/L BUN 12 (7-18) mg/dL Creatinine 0.80 (0.55-1.02) mg/dL Est Cr Clr Drug Dosing TNP Estimated GFR (MDRD) > 60 BUN/Creatinine Ratio 15.0 (No establ ref range) Glucose 107 H (70-99) mg/dL Lactic Acid 0.7 (0.4-2.0) mmol/L Calcium 8.9 (8.5-10.1) mg/dL Total Bilirubin 0.4 (0.2-1.0) mg/dL AST 17 (15-37) U/L ALT 18 (14-59) U/L Alkaline Phosphatase 89 (46-116) U/L Total Protein 7.5 (6.4-8.2) g/dL Albumin 3.8 (3.4-5.0) g/dL Globulin 3.7 Albumin/Globulin Ratio 1.0 Amylase 51 (25-115) U/L Lipase 145 (73-393) U/L Urine Color (YELLOW) Urine Appearance (CLEAR) Urine pH (5.0-9.0) Ur Specific [place] (1.005-1.030) Urine Protein (NEGATIVE) Urine Glucose (UA) (NEGATIVE) Urine Ketones (NEGATIVE) Urine Occult Blood (NEGATIVE) Urine Nitrite (NEGATIVE) Urine Bilirubin (NEGATIVE) Urine Urobilinogen (0.2-1.0) mg/dL Ur Leukocyte Esterase (NEGATIVE) Urine RBC (0-5) /HPF Urine WBC (0-5/HPF) /HPF Ur Epithelial Cells (NOT SEEN) /HPF Urine Bacteria (0-FEW/HPF) /HPF 02/11/21 Range/Units 20:50 WBC (5.0-10.0) 10^3/uL RBC (4.2-5.4) 10^6/uL Hgb (12.0-16.0) g/dL Hct (37.0-47.0) % MCV (80-100) fL MCH (27.0-34.0) pg MCHC (33.0-35.0) g/dL Plt Count (150-450) 10^3/uL Neut % (Auto) (42.2-75.2) % Lymph % (Auto) (20.5-50.1) % [place] % (Auto) (2-8) % Eos % (Auto) (1.0-3.0) % Baso % (Auto) (0.0-1.0) % Sodium (136-145) mmol/L Potassium (3.5-5.1) mmol/L Chloride (98-107) mmol/L Carbon Dioxide (21-32) mmol/L Anion Gap (7-13) mEq/L BUN (7-18) mg/dL Creatinine (0.55-1.02) mg/dL Est Cr Clr Drug Dosing Estimated GFR (MDRD) BUN/Creatinine Ratio (No establ ref range) Glucose (70-99) mg/dL Lactic Acid (0.4-2.0) mmol/L Calcium (8.5-10.1) mg/dL Total Bilirubin (0.2-1.0) mg/dL AST (15-37) U/L ALT (14-59) U/L Alkaline Phosphatase (46-116) U/L Total Protein (6.4-8.2) g/dL Albumin (3.4-5.0) g/dL Globulin Albumin/Globulin Ratio Amylase (25-115) U/L Lipase (73-393) U/L Urine Color Yellow (YELLOW) Urine Appearance Slightly cloudy (CLEAR) Urine pH 6.0 (5.0-9.0) Ur Specific [place] >= 1.030 (1.005-1.030) Urine Protein 30 H (NEGATIVE) Urine Glucose (UA) Negative (NEGATIVE) Urine Ketones Trace H (NEGATIVE) Urine Occult Blood Large H (NEGATIVE) Urine Nitrite Negative (NEGATIVE) Urine Bilirubin Negative (NEGATIVE) Urine Urobilinogen 1.0 (0.2-1.0) mg/dL Ur Leukocyte Esterase Negative (NEGATIVE) Urine RBC 0-5 (0-5) /HPF Urine WBC 10-20 H (0-5/HPF) /HPF Ur Epithelial Cells Many H (NOT SEEN) /HPF Urine Bacteria Many H (0-FEW/HPF) /HPF Meds: Medications Discontinued Medications Generic Name Dose Route Start Last Admin Trade Name Martínez PRN Reason Stop Dose Admin Hydrocodone Bitart/Acetaminophen Confirm 02/11/21 23:45 02/11/21 23:55 Acetaminophen/Hydrocodone 325-10 Mg Tab Administered 02/11/21 23:46 Not Given Dose 2 tab .ROUTE .STK-MED ONE Ciprofloxacin 500 mg 02/11/21 23:34 02/11/21 23:55 Ciprofloxacin 500 Mg Tab PO 02/11/21 23:35 500 mg ONETIME ONE Administration Hydromorphone HCl 1 mg 02/11/21 20:49 02/11/21 20:58 Hydromorphone 1 Mg/Ml Syringe IVPUSH 02/11/21 20:50 1 mg ONETIME ONE Administration Hydromorphone HCl 0.5 mg 02/11/21 22:00 02/11/21 22:06 Hydromorphone 0.5 Mg/0.5 Ml Syringe IVPUSH 02/11/21 22:01 0.5 mg ONETIME ONE Administration Sodium Chloride 1,000 mls @ 150 mls/hr 02/11/21 20:38 02/11/21 20:47 Normal Saline IV 02/12/21 03:17 150 mls/hr .BOLUS ONE Administration Ketorolac Tromethamine 30 mg 02/11/21 22:39 02/11/21 22:46 Ketorolac 30 Mg/Ml Sdv IVPUSH 02/11/21 22:40 30 mg ONETIME ONE Administration Ondansetron HCl 4 mg 02/11/21 20:37 02/11/21 20:47 Ondansetron 4 Mg/2 Ml Sdv IVPUSH 02/11/21 20:38 4 mg ONETIME ONE Administration Ondansetron HCl 4 mg 02/11/21 21:58 02/11/21 22:06 Ondansetron 4 Mg/2 Ml Sdv IVPUSH 02/11/21 21:59 4 mg ONETIME ONE Administration Ondansetron HCl Confirm 02/11/21 23:45 02/11/21 23:56 Ondansetron 4 Mg Tab.Dis Administered 02/11/21 23:46 Not Given Dose 12 mg .ROUTE .STK-MED ONE Tamsulosin HCl 0.4 mg 02/11/21 23:34 02/11/21 23:55 Tamsulosin 0.4 Mg Cap.Er PO 02/11/21 23:35 0.4 mg ONETIME ONE Administration Departure - Departure Time of Disposition: 23:38 Disposition: Home, Self-Care 01 Condition: Good Clinical Impression: Abdominal pain, Kidney stone on left side - Discharge Information *PRESCRIPTION DRUG MONITORING PROGRAM REVIEWED*: No *COPY OF PRESCRIPTION DRUG MONITORING REPORT IN PATIENT NETTIE: No Instructions: Renal Colic, [id number], Abdominal Pain, Adult, [id number] Forms: ED Department Discharge Additional Instructions: increase fluids follow up primary care to discouss toprimate cipro 500mg one twice daily for 3 days flomax daily for 6 days zofran odt 4mg one every 4 hours as needed for nausea hydrocodone 10/325 one every 6 hours as needed for severe pain angelina alternate tylenol and ibuprofen for mild discomfort Sepsis Event Note (ED) - Evaluation Sepsis Screening Result: No Definite Risk - Focused Exam Vital Signs: Vital Signs Temp Pulse Resp BP Pulse Ox 02/11/21 20:33 97.9 F 77 20 146/86 H 95 - My Orders Last 24 Hours: My Active Orders 02/11/21 20:45 CULTURE BLOOD [BC] Stat 02/11/21 20:50 CULTURE URINE [RM] Routine - Assessment/Plan Last 24 Hours: My Active Orders 02/11/21 20:45 CULTURE BLOOD [BC] Stat 02/11/21 20:50 CULTURE URINE [RM] Routine
[2021-02-11] MEDS ORDERED: Ondansetron 4 MG Tab.DIS ONE (23:45)
[2021-02-11] MEDS ORDERED: Acetaminophen/HYDROcodone 325-10 MG Tab ONE (23:45)
== END 2021-02-11 23:56 | disposition home or self-care (01) ==
LOC: DL.ED 20:20
DX: N20.0 Calculus of kidney (principal); E78.00 Pure hypercholesterolemia, unspecified; E66.9 Obesity, unspecified; Z88.8 Allergy status to other drugs, medicaments and biological substances; Z68.30 Body mass index [BMI] 30.0-30.9, adult; Z79.899 Other long term (current) drug therapy
CPT/HCPCS: 36415; 74176; 80053; 81001; 82150; 83605; 83690; 85025; 87040; 87086; 87088; 87186; 96374; 96375; 96376; 99284; A9270; J1170; J1885; J2405; J7030

== ENCOUNTER 2021-02-12 18:51 | Inpatient (IN) | payer MEDICARE, OTHER ==
[2021-02-12] MEDS ORDERED: Ketorolac 30 MG/ML SDV IVPUSH ONE ×2 (20:17)
[2021-02-12] MEDS ORDERED: Sodium Chloride 0.9% 1,000 ML IV ONE (20:17)
[2021-02-12] MEDS ORDERED: Sodium Chloride 0.9% 10 ML Syringe FLUSH PRN (20:17)
[2021-02-12] MEDS ORDERED: Ondansetron 4 MG/2 ML SDV IVPUSH ONE ×3 (20:17→22:57)
[2021-02-12] MEDS ORDERED: Sodium Chloride 0.9% 1,000 ML IV SCH (20:30)
[2021-02-12 20:53] LABS: ANION GAP 14.7 mEq/L (7-13); CHLORIDE,CL 106 mmol/L (98-107); SODIUM,NA 140 mmol/L (136-145)
[2021-02-12] MEDS ORDERED: HYDROmorphone 1 MG/ML Syringe IVPUSH ONE (21:09)
[2021-02-12] MEDS ORDERED: Iopamidol 612 MG/ML 100 ML Bottle IVPUSH ONE (21:12)
--- NOTE | 2021-02-12 21:50 | EDM.PDOC ---
ED HPI GENERAL MEDICAL PROBLEM - General Chief Complaint: Gastrointestinal Problem Stated Complaint: KIDNEY STONES, PER PT Time Seen by Provider: 02/12/21 21:44 Source of Information: Reports: Patient, Family History Limitations: Reports: Other (deaf pt) - History of Present Illness INITIAL COMMENTS - FREE TEXT/NARRATIVE: 50 y/o F c/o Abd pn and back pn for several days now. Pt was seen her last night and diagnosed with kidney stones in the left kidney and one in the L ureter. She was discharged with flomax, cipro and hydrocodone. Per the pt who is deaf and mother who is the client advisor for the pt, the pt has been in severe pain all day and cannot get relief despite the medications she was sent home on. She reports she has vomited 3 times today and has not been able to keep anything down. She does not know if the lower stone has passed yet. Currently the pn is 10/10 diffuse over the abd and L flank. She denies fever, cough, db, cp, drugs, etoh. Has urinated several times today but has not had any bowel movements. Bilateral Middle Abdomen Pain Score (Numeric/FACES): 10 - Related Data Allergies Allergy/AdvReac Type Severity Reaction Status Date / Time sulfacetamide Allergy Other Verified 02/12/21 19:36 Home Meds: Home Meds FLUoxetine [PROzac] 10 mg PO DAILY 07/17/20 [History] Propranolol [Inderal] 20 mg PO DAILY 07/17/20 [History] Topiramate [Topamax] 50 mg PO BID 07/17/20 [History] Acetaminophen [Tylenol] 650 mg PO Q4H PRN tablet 09/12/20 [Rx] Ondansetron [Zofran ODT] 4 mg PO Q4H PRN tab.dis 09/12/20 [Rx] Ciprofloxacin HCl [Cipro] 500 mg PO BID 02/12/21 [History] Hydrocodone/Acetaminophen [HYDROcodone-Acetaminophen 10-325 MG] 1 tab PO DAILY 1 [History] Ondansetron [Zofran ODT] 4 mg PO Q6H 02/12/21 [History] Tamsulosin [Flomax] 0.4 mg PO DAILY 02/12/21 [History] Past Medical History HEENT History: Reports: Cataract, Hard of Hearing, Other (See Below) Other HEENT History: CONGENTIAL DEAFNESS Cardiovascular History: Reports: High Cholesterol Respiratory History: Reports: None Gastrointestinal History: Reports: None Genitourinary History: Reports: None, Renal Calculus, Other (See Below) Other Genitourinary History: Left uriter stent. out 09/04/20 [employer] History: Reports: None Musculoskeletal History: Reports: Arthritis, Other (See Below) Other Musculoskeletal History: Left knee Neurological History: Reports: Migraines Psychiatric History: Reports: Anxiety Endocrine/Metabolic History: Reports: Obesity/BMI 30+ Hematologic History: Reports: Anemia Immunologic History: Reports: None Oncologic (Cancer) History: Reports: None Dermatologic History: Reports: None - Infectious Disease History Infectious Disease History: Reports: Chicken Pox - Past Surgical History HEENT Surgical History: Reports: Oral Surgery Cardiovascular Surgical History: Reports: None Respiratory Surgical History: Reports: None GI Surgical History: Reports: None, EGD Female Surgical History: Reports: Tubal Ligation Endocrine Surgical History: Reports: None Neurological Surgical History: Reports: None Musculoskeletal Surgical History: Reports: None Oncologic Surgical History: Reports: None Dermatological Surgical History: Reports: None Social & Family History - Family History Family Medical History: No Pertinent Family History - Tobacco Use Tobacco Use Status *Q: Never Tobacco User Second Hand Smoke Exposure: No - Caffeine Use Caffeine Use: Reports: Coffee, Soda, Tea Other Caffeine Use: COCA COLA 1 CAN DAILY ED ROS GENERAL - Review of Systems Review Of Systems: Comprehensive ROS is negative, except as noted in HPI. ED EXAM, GI/ABD - Physical Exam Exam: See Below Exam Limited By: No Limitations General Appearance: Alert, Moderate Distress (appears to be in severe pain) Eyes: Bilateral: Normal Appearance Throat/Mouth: Normal Inspection, Normal Lips, Normal Teeth, Normal Gums, Normal Oropharynx, Normal Voice, No Airway Compromise Head: Atraumatic, Normocephalic Neck: Normal Inspection, Supple, Non-Tender, Full Range of Motion Respiratory/Chest: No Respiratory Distress, Lungs Clear, Normal Breath Sounds, No Accessory Muscle Use, Chest Non-Tender Cardiovascular: Normal Peripheral Pulses, Regular Rate, Rhythm, No Edema, No Gallop, No JVD, No Murmur, No Rub GI/Abdominal Exam: Soft, Tender (tender diffuse over the abd. Tender L flank) (Female) Exam: Deferred Rectal (Female) Exam: Deferred Back Exam: Normal Inspection, Full Range of Motion, CVA Tenderness (L) Extremities: Normal Inspection, Normal Range of Motion, Non-Tender, Normal Capillary Refill, No Pedal Edema Neurological: Alert Skin Exam: Warm, Dry, Intact Course - Vital Signs Last Recorded V/S: Last Vital Signs Temp 97.6 F 02/12/21 19:36 Pulse 74 02/12/21 19:36 Resp 16 02/12/21 19:36 BP 126/72 02/12/21 19:36 Pulse Ox 98 02/12/21 19:36 - Orders/Labs/Meds Orders: Active Orders 24 hr Category Date Time Status Admission Diagnosis [ADT] Stat ADT 02/12/21 22:05 Ordered Admission Status [Patient Status] [ADT] Routine ADT 02/12/21 22:05 Ordered Peripheral IV Care [RC] . DIRECTED Care 02/12/21 20:17 Active Abdomen Pelvis w Cont [CT] Urgent Exams 02/12/21 21:12 Ordered UA RFX SLIME AND CULT IF INDIC [URIN] Stat Lab 02/12/21 22:05 Ordered Sodium Chloride 0.9% [Normal Saline] 1,000 ml Med 02/12/21 20:30 Active IV ASDIRECTED Sodium Chloride 0.9% [Saline Flush] Med 02/12/21 20:17 Active 10 ml FLUSH ASDIRECTED PRN Peripheral IV Insertion Adult [OM.PC] Routine Oth 02/12/21 20:17 Ordered Medication Orders Sodium Chloride (Normal Saline) 1,000 mls @ 250 mls/hr IV ASDIRECTED [facility] Last Admin: 02/12/21 20:37 Dose: 250 mls/hr Documented by: YOMI Sodium Chloride (Sodium Chloride 0.9% 10 Ml Syringe) 10 ml FLUSH ASDIRECTED PRN PRN Reason: Keep Vein Open Labs: Laboratory Tests 02/12/21 02/12/21 Range/Units 20:27 20:27 WBC 11.0 H (5.0-10.0) 10^3/uL RBC 4.02 L (4.2-5.4) 10^6/uL Hgb 11.1 L (12.0-16.0) g/dL Hct 35.3 L (37.0-47.0) % MCV 87.8 (80-100) fL MCH 27.6 (27.0-34.0) pg MCHC 31.4 L (33.0-35.0) g/dL Plt Count 281 (150-450) 10^3/uL Neut % (Auto) 86.7 H (42.2-75.2) % Lymph % (Auto) 8.3 L (20.5-50.1) % [place] % (Auto) 4.2 (2-8) % Eos % (Auto) 0.7 L (1.0-3.0) % Baso % (Auto) 0.1 (0.0-1.0) % Sodium 140 (136-145) mmol/L Potassium 3.7 (3.5-5.1) mmol/L Chloride 106 (98-107) mmol/L Carbon Dioxide 23 (21-32) mmol/L Anion Gap 14.7 H (7-13) mEq/L BUN 13 (7-18) mg/dL Creatinine 0.83 (0.55-1.02) mg/dL Est Cr Clr Drug Dosing TNP Estimated GFR (MDRD) > 60 BUN/Creatinine Ratio 15.7 (No establ ref range) Glucose 112 H (70-99) mg/dL Calcium 8.3 L (8.5-10.1) mg/dL Total Bilirubin 0.4 (0.2-1.0) mg/dL AST 55 H (15-37) U/L ALT 83 H (14-59) U/L Alkaline Phosphatase 117 H (46-116) U/L Total Protein 7.1 (6.4-8.2) g/dL Albumin 3.6 (3.4-5.0) g/dL Globulin 3.5 Albumin/Globulin Ratio 1.0 Meds: Medications Generic Name Dose Route Start Last Admin Trade Name Freq PRN Reason Stop Dose Admin Sodium Chloride 1,000 mls @ 250 mls/hr 02/12/21 20:30 02/12/21 20:37 Normal Saline IV 250 mls/hr ASDIRECTED MEI Administration Sodium Chloride 10 ml 02/12/21 20:17 Sodium Chloride 0.9% 10 Ml Syringe FLUSH ASDIRECTED PRN Keep Vein Open Discontinued Medications Generic Name Dose Route Start Last Admin Trade Name Freq PRN Reason Stop Dose Admin Hydromorphone HCl 1 mg 02/12/21 21:09 02/12/21 21:15 Hydromorphone 1 Mg/Ml Syringe IVPUSH 02/12/21 21:10 1 mg ONETIME ONE Administration Sodium Chloride 1,000 mls @ 999 mls/hr 02/12/21 20:17 Normal Saline IV 02/12/21 21:17 .BOLUS ONE Iopamidol 100 ml 02/12/21 21:12 02/12/21 21:48 Iopamidol 612 Mg/Ml 100 Ml Bottle IVPUSH 02/12/21 21:13 75 ml ONETIME ONE Administration Ketorolac Tromethamine 30 mg 02/12/21 20:17 02/12/21 20:38 Ketorolac 30 Mg/Ml Sdv IVPUSH 02/12/21 20:18 30 mg ONETIME ONE Administration Ketorolac Tromethamine 30 mg 02/12/21 20:17 02/12/21 20:41 Ketorolac 30 Mg/Ml Sdv IVPUSH 02/12/21 20:18 Not Given ONETIME ONE Ondansetron HCl 4 mg 02/12/21 20:17 02/12/21 20:38 Ondansetron 4 Mg/2 Ml Sdv IVPUSH 02/12/21 20:18 4 mg ONETIME ONE Administration Ondansetron HCl 4 mg 02/12/21 20:17 02/12/21 20:40 Ondansetron 4 Mg/2 Ml Sdv IVPUSH 02/12/21 20:18 Not Given ONETIME ONE - Re-Assessments/Exams Free Text/Narrative Re-Assessment/Exam: 02/12/21 22:07 The pt would like to be admitted for pain control and vomiting control. I spoke with Dr. Moscoso on the phone and he agreed to admit the pt for inpatient treatment of her pain and kidney stone. Departure - Departure Time of Disposition: 22:08 (Dr. Moscoso) Disposition: Admitted As Inpatient 67 Condition: Fair Clinical Impression: Kidney stone - Discharge Information *PRESCRIPTION DRUG MONITORING PROGRAM REVIEWED*: Not Applicable *COPY OF PRESCRIPTION DRUG MONITORING REPORT IN PATIENT NETTIE: Not Applicable Forms: ED Department Discharge Sepsis Event Note (ED) - Evaluation Sepsis Screening Result: No Definite Risk - Focused Exam Vital Signs: Vital Signs Temp Pulse Resp BP Pulse Ox 02/12/21 19:36 97.6 F 74 16 126/72 98 - My Orders Last 24 Hours: My Active Orders 02/12/21 22:05 Admission Diagnosis [ADT] Stat Admission Status [Patient Status] [ADT] Routine UA RFX SLIME AND CULT IF INDIC [URIN] Stat - Assessment/Plan Last 24 Hours: My Active Orders 02/12/21 22:05 Admission Diagnosis [ADT] Stat Admission Status [Patient Status] [ADT] Routine UA RFX SLIME AND CULT IF INDIC [URIN] Stat
--- NOTE | 2021-02-12 22:48 | CT ---
PROCEDURE INFORMATION: Exam: CT Abdomen And Pelvis With Contrast Exam date and time: 02/12/2021 9:31 PM Age: 50 years old Clinical indication: Abdominal pain; Localized; Lower; Prior surgery; Surgery date: 1-6 months; Surgery type: Cholecystectomy 08/2020; Patient HX: HX kidney stones; Additional info: Lower abdominal pain, flank pain TECHNIQUE: Imaging protocol: Computed tomography of the abdomen and pelvis with contrast. Radiation optimization: All CT scans at this facility use at least one of these dose optimization techniques: automated exposure control; mA and/or kV adjustment per patient size (includes targeted exams where dose is matched to clinical indication); or iterative reconstruction. Contrast material: ISOVUE 300; Contrast volume: 75 ml; Contrast route: INTRAVENOUS (IV); COMPARISON: CT Abdomen Pelvis wo Cont 02/11/2021 9:38 PM FINDINGS: Lungs: There is atelectasis in the lung bases bilaterally. There are no pleural effusions. Liver: The liver is homogeneous in appearance without focal hepatic lesions. Gallbladder and bile ducts: The gallbladder is surgically absent. There is no biliary ductal dilatation. Pancreas: The pancreas is within normal limits. Spleen: The spleen is normal in size. Adrenal glands: The adrenal glands are normal in appearance. Kidneys and ureters: The kidneys are symmetric in size. There are 2 small nonobstructing calculi in the left kidney, unchanged compared with the prior study. No calculi are seen in the right kidney nor along the course of either ureter. There is no hydronephrosis. Stomach and bowel: The stomach is not distended. No pathologically dilated small bowel loops are identified. There is no evidence of colonic wall thickening or pericolonic inflammation. Appendix: There is a normal appendix in the right lower quadrant. Intraperitoneal space: There is no free air or free fluid in the abdomen or pelvis. Vasculature: The abdominal aorta is normal in caliber. The celiac axis, SMA and RAJENDRA are patent. Lymph nodes: No pathologically enlarged lymph nodes are identified in the abdomen or pelvis. Urinary bladder: The urinary bladder appears normal. Reproductive: The uterus is heterogeneous in appearance. There is a 2.1 cm mass arising from the anterior myometrium, likely a uterine fibroid. There are nabothian cysts in the cervix. The endometrium is thickened, measuring about 18 mm. There are 2 cysts in the left ovary, the more medial measuring 2.2 x 1.9 x 2.6 cm and the more lateral measuring 2.0 x 1.9 x 1.7 cm. The right ovary appears unremarkable. Bones/joints: There is normal alignment in the visualized portion of the spine. No acute fractures or aggressive bone lesions are identified. Soft tissues: Within normal limits. IMPRESSION: 1. No change in 2 small nonobstructing calculi in the left kidney. No hydronephrosis or ureterolithiasis. 2. Fibroid uterus with thickened endometrium. There are 2 small cysts associated with the left ovary. Consider further evaluation with pelvic ultrasound if the patient's pain might be gynecologic in etiology.
[2021-02-12] MEDS ORDERED: fentaNYL 100 MCG/2 ML SDV IVPUSH ONE (22:57)
[2021-02-13] MEDS: HYDROmorphone 0.5 MG/0.5 ML Syringe IVPUSH PRN ×2 (00:56→08:38)
[2021-02-13] MEDS: Ondansetron 4 MG Tab.DIS PO PRN ×2 (00:58→08:29)
[2021-02-13] MEDS: Lactated Ringers 1,000 ML IV SCH ×3 (01:00→20:28)
[2021-02-13] MEDS ORDERED: LORazepam 2 MG/ML SDV IVPUSH ONE ×2 (01:02→22:09)
[2021-02-13] MEDS: Omeprazole 20 MG Cap.CR PO SCH ×2 (06:03→15:59)
[2021-02-13 06:40] LABS: ANION GAP 16.5 mEq/L (7-13); CHLORIDE,CL 109 mmol/L (98-107); SODIUM,NA 143 mmol/L (136-145)
[2021-02-13] MEDS: Tamsulosin 0.4 MG Cap.ER PO SCH (08:52)
[2021-02-13] MEDS: Propranolol 20 MG Tab PO SCH (08:52)
[2021-02-13] MEDS: Topiramate 25 MG Tab PO SCH ×2 (08:52→21:57)
[2021-02-13] MEDS: FLUoxetine 10 MG Cap PO SCH (08:52)
[2021-02-13] MEDS ORDERED: Ondansetron 4 MG/2 ML SDV IVPUSH PRN (11:32)
[2021-02-13] MEDS ORDERED: Naloxone 2 MG/2 ML Syringe IVPUSH PRN (11:32)
[2021-02-13] MEDS ORDERED: fentaNYL Citrate/PF 1,500 MCG/30 ML PCA Vial IV SCH (11:45)
[2021-02-13] MEDS ORDERED: LORazepam 2 MG/ML SDV IVPUSH PRN (15:12)
--- NOTE | 2021-02-13 15:22 | PCM.HP ---
H&P History of Present Illness - General Date of Service: 02/12/21 Admit Problem/Dx: Admission Diagnosis/Problem Admission Diagnosis/Problem Kidney stone - History of Present Illness Initial Comments - Free Text/Narative: Princess is a 50-year-old woman who presents with severe left flank and left lower quadrant pelvic pain. She has had the symptoms now for about 48 hours. She has had some kidney stones and ureteral stones in the past, work-up in the ED showed 2 small stones in the kidney itself, but no stone in the ureter. The CT did show a little bit of enlargement of the uterus as well as ovarian cysts on both ovaries. She was admitted for pain control, and further work-up of the source of this pain. Bilateral Middle Abdomen Pain Score (Numeric/FACES): 10 - Related Data Allergies/Adverse Reactions: Allergies Allergy/AdvReac Type Severity Reaction Status Date / Time sulfacetamide Allergy Other Verified 02/12/21 19:36 Home Medications: Home Meds FLUoxetine [PROzac] 10 mg PO DAILY 07/17/20 [History] Propranolol [Inderal] 20 mg PO DAILY 07/17/20 [History] Topiramate [Topamax] 50 mg PO BID 07/17/20 [History] Acetaminophen [Tylenol] 650 mg PO Q4H PRN tablet 09/12/20 [Rx] Ondansetron [Zofran ODT] 4 mg PO Q4H PRN tab.dis 09/12/20 [Rx] Ciprofloxacin HCl [Cipro] 500 mg PO BID 02/12/21 [History] Hydrocodone/Acetaminophen [HYDROcodone-Acetaminophen 10-325 MG] 1 tab PO Q6H PRN 02/12/21 [History] Tamsulosin [Flomax] 0.4 mg PO DAILY 02/12/21 [History] Omeprazole 20 mg PO BIDAC 02/13/21 [History] Past Medical History HEENT History: Reports: Cataract, Hard of Hearing, Other (See Below) Other HEENT History: CONGENTIAL DEAFNESS Cardiovascular History: Reports: High Cholesterol Respiratory History: Reports: None Gastrointestinal History: Reports: None Genitourinary History: Reports: None, Renal Calculus, Other (See Below) Other Genitourinary History: Left uriter stent. out 09/04/20 DATA ANALYSIS INTERN History: Reports: None Musculoskeletal History: Reports: Arthritis, Other (See Below) Other Musculoskeletal History: Left knee Neurological History: Reports: Migraines Psychiatric History: Reports: Anxiety Endocrine/Metabolic History: Reports: Obesity/BMI 30+ Hematologic History: Reports: Anemia Immunologic History: Reports: None Oncologic (Cancer) History: Reports: None Dermatologic History: Reports: None - Infectious Disease History Infectious Disease History: Reports: Chicken Pox - Past Surgical History HEENT Surgical History: Reports: Oral Surgery Cardiovascular Surgical History: Reports: None Respiratory Surgical History: Reports: None GI Surgical History: Reports: None, EGD Female Surgical History: Reports: Tubal Ligation Endocrine Surgical History: Reports: None Neurological Surgical History: Reports: None Musculoskeletal Surgical History: Reports: None Oncologic Surgical History: Reports: None Dermatological Surgical History: Reports: None Social & Family History - Family History Family Medical History: No Pertinent Family History - Tobacco Use Tobacco Use Status *Q: Never Tobacco User Second Hand Smoke Exposure: No - Caffeine Use Caffeine Use: Reports: Coffee, Soda Other Caffeine Use: COCA COLA 1 CAN DAILY Caffeine Use Comment: 1 - 20 oz Mt Dew every 2 wks; coffee intake only when eating out - Recreational Drug Use Recreational Drug Use: No H&P Review of Systems - Review of Systems: Review Of Systems: See Below General: Denies: Fever, Chills HEENT: Denies: Hearing Changes, Visual Changes Pulmonary: Denies: Shortness of Breath, Cough Cardiovascular: Denies: Chest Pain, Palpitations Gastrointestinal: Reports: Other (She has had some nausea and vomiting due to the pain). Denies: Hematochezia, Melena Genitourinary: Denies: Dysuria, Hematuria Musculoskeletal: Denies: Joint Pain, Joint Swelling Skin: Denies: Rash, Lesions Psychiatric: Reports: Other (And does state that she has some anxiety issues, and that has been worse with her pain) Review of Systems Comment:: Rest of her review of systems is complete and negative Exam - Exam Exam: See Below - Vital Signs Vital Signs: Last Vital Signs Temp 98.5 F 02/13/21 08:01 Pulse 97 02/13/21 08:01 Resp 20 02/13/21 08:01 BP 117/68 02/13/21 08:01 Pulse Ox 100 02/13/21 08:01 Weight: 162 lb 1.6 oz - Exam Physical Exam Comments:: General: Princess is a 50-year-old woman in no acute distress. She is able to lip read, but is very hard of hearing, her mother translates for her. She reports that she is in severe pain at this time Oropharynx is clear, mucous membranes are moist Heart: Regular rate and rhythm, no murmurs Lungs: Clear to auscultation throughout She has severe pain in her left lower quadrant towards her pelvis - Patient Data Lab Results Last 24 hrs: Laboratory Results - last 24 hr 02/12/21 02/12/21 02/12/21 Range/Units 20:27 20:27 22:30 WBC 11.0 H (5.0-10.0) 10^3/uL RBC 4.02 L (4.2-5.4) 10^6/uL Hgb 11.1 L (12.0-16.0) g/dL Hct 35.3 L (37.0-47.0) % MCV 87.8 (80-100) fL MCH 27.6 (27.0-34.0) pg MCHC 31.4 L (33.0-35.0) g/dL Plt Count 281 (150-450) 10^3/uL Neut % (Auto) 86.7 H (42.2-75.2) % Lymph % (Auto) 8.3 L (20.5-50.1) % [place] % (Auto) 4.2 (2-8) % Eos % (Auto) 0.7 L (1.0-3.0) % Baso % (Auto) 0.1 (0.0-1.0) % Sodium 140 (136-145) mmol/L Potassium 3.7 (3.5-5.1) mmol/L Chloride 106 (98-107) mmol/L Carbon Dioxide 23 (21-32) mmol/L Anion Gap 14.7 H (7-13) mEq/L BUN 13 (7-18) mg/dL Creatinine 0.83 (0.55-1.02) mg/dL Est Cr Clr Drug Dosing TNP Estimated GFR (MDRD) > 60 BUN/Creatinine Ratio 15.7 (No establ ref range) Glucose 112 H (70-99) mg/dL Calcium 8.3 L (8.5-10.1) mg/dL Total Bilirubin 0.4 (0.2-1.0) mg/dL AST 55 H (15-37) U/L ALT 83 H (14-59) U/L Alkaline Phosphatase 117 H (46-116) U/L Total Protein 7.1 (6.4-8.2) g/dL Albumin 3.6 (3.4-5.0) g/dL Globulin 3.5 Albumin/Globulin Ratio 1.0 Urine Color (YELLOW) Urine Appearance (CLEAR) Urine pH (5.0-9.0) Ur Specific [place] (1.005-1.030) Urine Protein (NEGATIVE) Urine Glucose (UA) (NEGATIVE) Urine Ketones (NEGATIVE) Urine Occult Blood (NEGATIVE) Urine Nitrite (NEGATIVE) Urine Bilirubin (NEGATIVE) Urine Urobilinogen (0.2-1.0) mg/dL Ur Leukocyte Esterase (NEGATIVE) U Hyaline Cast (Auto) Urine RBC (0-5) /HPF Urine WBC (0-5/HPF) /HPF Ur Epithelial Cells (NOT SEEN) /HPF Urine Bacteria (0-FEW/HPF) /HPF Urine Mucus (NOT SEEN) /LPF SARS-CoV-2 RNA (JOSÉ ANTONIO) Negative (NEGATIVE) 02/13/21 02/13/21 02/13/21 Range/Units 01:21 06:10 06:10 WBC 7.3 (5.0-10.0) 10^3/uL RBC 3.52 L (4.2-5.4) 10^6/uL Hgb 9.7 L (12.0-16.0) g/dL Hct 31.3 L (37.0-47.0) % MCV 88.9 (80-100) fL MCH 27.6 (27.0-34.0) pg MCHC 31.0 L (33.0-35.0) g/dL Plt Count 259 (150-450) 10^3/uL Neut % (Auto) 66.6 (42.2-75.2) % Lymph % (Auto) 24.0 (20.5-50.1) % [place] % (Auto) 8.1 H (2-8) % Eos % (Auto) 1.2 (1.0-3.0) % Baso % (Auto) 0.1 (0.0-1.0) % Sodium 143 (136-145) mmol/L Potassium 3.5 (3.5-5.1) mmol/L Chloride 109 H (98-107) mmol/L Carbon Dioxide 21 (21-32) mmol/L Anion Gap 16.5 H (7-13) mEq/L BUN 11 (7-18) mg/dL Creatinine 0.64 (0.55-1.02) mg/dL Est Cr Clr Drug Dosing 91.82 Estimated GFR (MDRD) > 60 BUN/Creatinine Ratio 17.2 (No establ ref range) Glucose 77 (70-99) mg/dL Calcium 7.7 L (8.5-10.1) mg/dL Total Bilirubin 0.3 (0.2-1.0) mg/dL AST 36 (15-37) U/L ALT 60 H (14-59) U/L Alkaline Phosphatase 93 (46-116) U/L Total Protein 6.0 L (6.4-8.2) g/dL Albumin 3.0 L (3.4-5.0) g/dL Globulin 3.0 Albumin/Globulin Ratio 1.00 Urine Color Yellow (YELLOW) Urine Appearance Clear (CLEAR) Urine pH 6.5 (5.0-9.0) Ur Specific [place] 1.025 (1.005-1.030) Urine Protein Negative (NEGATIVE) Urine Glucose (UA) Negative (NEGATIVE) Urine Ketones 80 H (NEGATIVE) Urine Occult Blood Moderate H (NEGATIVE) Urine Nitrite Negative (NEGATIVE) Urine Bilirubin Negative (NEGATIVE) Urine Urobilinogen 2.0 H (0.2-1.0) mg/dL Ur Leukocyte Esterase Negative (NEGATIVE) U Hyaline Cast (Auto) Few Urine RBC 5-10 H (0-5) /HPF Urine WBC 0-5 (0-5/HPF) /HPF Ur Epithelial Cells Many H (NOT SEEN) /HPF Urine Bacteria Few (0-FEW/HPF) /HPF Urine Mucus Few H (NOT SEEN) /LPF SARS-CoV-2 RNA (JOSÉ ANTONIO) (NEGATIVE) Result Diagrams: 02/13/21 06:10 02/13/21 06:10 *Q Meaningful Use (ADM) - VTE Risk Assess *Q Each Risk Factor Represents 1 Point: Age 41 - 59 years Total Score 1 Point Risk Factors: 1 Each Risk Factor Represents 2 Points: None Total Score 2 Point Risk Factors: 0 Each Risk Factor Represents 3 Points: None Total Score 3 Point Risk Factors: 0 Each Risk Factor Represents 5 Points: None Total Score 5 Point Risk Factors: 0 Venous Thromboembolism Risk Factor Score *Q: 1 - Problem List (1) Pelvic pain SNOMED Code(s): 27667410 ICD Code: R10.2 - PELVIC AND PERINEAL PAIN Status: Acute Priority: High Current Visit: Yes (2) Ovarian cyst SNOMED Code(s): 26970338 ICD Code: N83.209 - UNSPECIFIED OVARIAN CYST, UNSPECIFIED SIDE Status: Acute Current Visit: Yes Qualifiers: Laterality: bilateral Qualified Code(s): N83.201 - Unspecified ovarian cyst, right side; N83.202 - Unspecified ovarian cyst, left side (3) Kidney stone on left side SNOMED Code(s): 73879266 ICD Code: N20.0 - CALCULUS OF KIDNEY Status: Acute Current Visit: No Problem List Initiated/Reviewed/Updated: Yes Orders Last 24hrs: Active Orders 24 hr Category Date Time Status Admission Diagnosis [ADT] Stat ADT 02/12/21 22:05 Ordered Admission Status [Patient Status] [ADT] Routine ADT 02/12/21 22:05 Active Communication Order [RC] PER UNIT ROUTINE Care 02/13/21 11:33 Active Intake and Output [RC] 06,14,22 Care 02/13/21 00:37 Active Oxygen Therapy [RC] PRN Care 02/13/21 00:36 Active CONSUMER MARKETING ANALYST Record [RC] Q4H Care 02/13/21 11:33 Active [place] [RC] ASDIRECTED Care 02/13/21 00:36 Active VTE/DVT Education [RC] PER UNIT ROUTINE Care 02/13/21 00:36 Active Vital Signs [RC] 04,08,12,16,20,00 Care 02/13/21 00:36 Active Vital Signs [RC] PER UNIT ROUTINE Care 02/13/21 11:33 Active Regular Diet [DIET] Diet 02/13/21 Breakfast Active Pelvis Non OB Comp [US] Routine Exams 02/13/21 11:37 Taken FLUoxetine [PROzac] Med 02/13/21 09:00 Active 10 mg PO DAILY Ketorolac [Toradol] Med 02/13/21 16:00 Active 30 mg IVPUSH Q6H LORazepam [Ativan] Med 02/13/21 15:12 Active 1 mg IVPUSH Q8H PRN Lactated Ringers [Ringers, Lactated] 1,000 ml Med 02/13/21 00:45 Active IV ASDIRECTED Naloxone [Narcan] Med 02/13/21 11:32 Active 0.04 mg IVPUSH Q3M PRN Omeprazole Med 02/13/21 06:00 Active 20 mg PO BIDAC Ondansetron [Zofran ODT] Med 02/13/21 00:36 Active 4 mg PO Q6H PRN Ondansetron [Zofran] Med 02/13/21 11:32 Active 4 mg IVPUSH Q6H PRN Propranolol [Inderal] Med 02/13/21 09:00 Active 20 mg PO DAILY Sodium Chloride 0.9% [Saline Flush] Med 02/12/21 20:17 Active 10 ml FLUSH ASDIRECTED PRN Tamsulosin [Flomax] Med 02/13/21 09:00 Active 0.4 mg PO DAILY Topiramate [Topamax] Med 02/13/21 09:00 Active 50 mg PO BID fentaNYL Citrate/PF [Fentanyl 1,500 MCG/30 ML - Water Med 02/13/21 11:45 Active CONSUMER MARKETING ANALYST] See Protocol IV ASDIRECTED Peripheral IV Insertion Adult [OM.PC] Routine Oth 02/12/21 20:17 Ordered Pulse Oximetry Continuous Monitoring [OM.PC] Routine Oth 02/13/21 11:33 Ordered Resuscitation Status Routine Resus Stat 02/13/21 00:36 Ordered Medication Orders Fentanyl Citrate (Fentanyl Citrate/Pf 1,500 Mcg/30 Ml Tile Layer Drainage Vial) 0 mcg IV ASDIRECTED [facility]; Protocol Last Admin: 02/13/21 12:20 Dose: 1,500 mcg Documented by: EZRA Cosigned by: ROSALVA Fluoxetine HCl (Fluoxetine 10 Mg Cap) 10 mg PO DAILY [facility] Last Admin: 02/13/21 08:52 Dose: 10 mg Documented by: ROSALVA Lactated Ringer's (Ringers, Lactated) 1,000 mls @ 125 mls/hr IV ASDIRECTED [facility] Last Admin: 02/13/21 09:14 Dose: 125 mls/hr Documented by: Infusion: 02/13/21 09:00 Dose: 125 mls/hr Documented by: Admin: 02/13/21 01:00 Dose: 125 mls/hr Documented by: JOJO Ketorolac Tromethamine (Ketorolac 30 Mg/Ml Sdv) 30 mg IVPUSH Q6H [facility] Stop: 02/14/21 10:01 Lorazepam (Lorazepam 2 Mg/Ml Sdv) 1 mg IVPUSH Q8H PRN PRN Reason: Anxiety Naloxone HCl (Naloxone 2 Mg/2 Ml Syringe) 0.04 mg IVPUSH Q3M PRN PRN Reason: Respiratory Depression Omeprazole (Omeprazole 20 Mg Cap.Cr) 20 mg PO BIDAC [facility] Last Admin: 02/13/21 06:03 Dose: 20 mg Documented by: TRENTON Ondansetron HCl (Ondansetron 4 Mg Tab.Dis) 4 mg PO Q6H PRN PRN Reason: nausea, able to take PO Last Admin: 02/13/21 08:29 Dose: 4 mg Documented by: Admin: 02/13/21 00:58 Dose: 4 mg Documented by: JOJO Ondansetron HCl (Ondansetron 4 Mg/2 Ml Sdv) 4 mg IVPUSH Q6H PRN PRN Reason: Nausea/Vomiting Propranolol HCl (Propranolol 20 Mg Tab) 20 mg PO DAILY [facility] Last Admin: 02/13/21 08:52 Dose: 20 mg Documented by: ROSALVA Sodium Chloride (Sodium Chloride 0.9% 10 Ml Syringe) 10 ml FLUSH ASDIRECTED PRN PRN Reason: Keep Vein Open Last Admin: 02/12/21 23:32 Dose: 10 ml Documented by: YOMI Tamsulosin HCl (Tamsulosin 0.4 Mg Cap.Er) 0.4 mg PO DAILY [facility] Last Admin: 02/13/21 08:52 Dose: 0.4 mg Documented by: ROSALVA Topiramate (Topiramate 25 Mg Tab) 50 mg PO BID [facility] Last Admin: 02/13/21 08:52 Dose: 50 mg Documented by: ROSALVA Assessment/Plan Comment:: Assessment/Plan: 1. 50-year-old woman with severe left pelvic pain and left flank pain -She might have some ureteral "sludge" causing some of her pain in her back and her flank -We will admit her to inpatient for pain control and IV rehydration -Ultrasound tomorrow of the pelvis to characterize the slight swelling with her uterus as well as her ovarian cysts 2. VTE prophylaxis: She is at very low risk of VTE at this time, with a risk score of 1. She is able to ambulate well.
[2021-02-13] MEDS: Ketorolac 30 MG/ML SDV IVPUSH SCH ×2 (15:59→21:58)
--- NOTE | 2021-02-13 16:10 | US ---
EXAMINATION: Pelvis Non OB Comp SEX: Female AGE: 50 years CLINICAL HISTORY: 50-year-old female with pelvic PAIN reported to have "2 small cysts left ovary measuring 2.6 cm and 2.0 cm diameter; 2 nonobstructing calculi left kidney; fibroid uterus" on CT exam 12 February 2021. Interpretation: 1. Midline uterus with inhomogeneously dense myometrium (fibroids?) measures 10.1 cm L x 7.0 cm W x 3.8 cm AP. 2. Two discrete 15.6 and 12.8 mm in diameter hypoechoic cysts lower uterine segment. 3. Generally thickened proliferative appearing central endometrial "stripe" with a small amount of fluid in the fundus. No gestational sac or pole. 4. Left ovary measures 3.34 cm x 1.9 cm with a discrete dominant 18.4 millimeters by 23 mm hypoechoic cyst. No other cystic or solid left adnexal mass lesions identified. 5. Right ovary unremarkable. 6. Small amount of fluid in the dependent sac posteriorly suggestive recent cyst rupture. CONCLUSION: Myomatous degenerative changes uterus (fibroids). Nabothian cysts. Solitary small left ovarian cyst. Small volume free fluid posterior cul-de-sac.
[2021-02-14] MEDS: Ketorolac 30 MG/ML SDV IVPUSH SCH ×2 (04:38→12:57)
[2021-02-14] MEDS: Lactated Ringers 1,000 ML IV SCH ×2 (04:40→12:20)
[2021-02-14] MEDS: Omeprazole 20 MG Cap.CR PO SCH ×2 (06:07→16:38)
--- NOTE | 2021-02-14 07:48 | PCM.PN ---
- General Info Date of Service: 02/13/21 Admission Dx/Problem (Free Text): Admission Diagnosis/Problem Admission Diagnosis/Problem Kidney stone Subjective Update: Princess is still in severe pain this morning. We did not keep up with her pain with the as needed dosing. She has also had some severe anxiety issues overnight, responded well to small doses of IV lorazepam. - Patient Data Vitals - Most Recent: Last Vital Signs Temp 97.8 F 02/14/21 04:00 Pulse 68 02/14/21 04:00 Resp 16 02/14/21 04:00 BP 116/64 02/14/21 04:00 Pulse Ox 96 02/14/21 04:00 Weight - Most Recent: 162 lb 1.6 oz I&O - Last 24 Hours: Intake & Output 02/13/21 02/14/21 02/14/21 22:59 06:59 14:59 Output Total 700 Balance -700 Med Orders - Current: Current Medications Fentanyl Citrate (Fentanyl Citrate/Pf 1,500 Mcg/30 Ml Field Account Director Vial) 0 mcg IV ASDIRECTED [facility]; Protocol Last Admin: 02/13/21 12:20 Dose: 1,500 mcg Documented by: Fluoxetine HCl (Fluoxetine 10 Mg Cap) 10 mg PO DAILY [facility] Last Admin: 02/13/21 08:52 Dose: 10 mg Documented by: Lactated Ringer's (Ringers, Lactated) 1,000 mls @ 125 mls/hr IV ASDIRECTED [facility] Last Admin: 02/14/21 04:40 Dose: 125 mls/hr Documented by: Ketorolac Tromethamine (Ketorolac 30 Mg/Ml Sdv) 30 mg IVPUSH Q6H [facility] Stop: 02/14/21 10:01 Last Admin: 02/14/21 04:38 Dose: 30 mg Documented by: Lorazepam (Lorazepam 2 Mg/Ml Sdv) 1 mg IVPUSH Q8H PRN PRN Reason: Anxiety Last Admin: 02/13/21 16:01 Dose: 1 mg Documented by: Naloxone HCl (Naloxone 2 Mg/2 Ml Syringe) 0.04 mg IVPUSH Q3M PRN PRN Reason: Respiratory Depression Omeprazole (Omeprazole 20 Mg Cap.Cr) 20 mg PO BIDAC [facility] Last Admin: 02/14/21 06:07 Dose: 20 mg Documented by: Ondansetron HCl (Ondansetron 4 Mg Tab.Dis) 4 mg PO Q6H PRN PRN Reason: nausea, able to take PO Last Admin: 02/13/21 08:29 Dose: 4 mg Documented by: Ondansetron HCl (Ondansetron 4 Mg/2 Ml Sdv) 4 mg IVPUSH Q6H PRN PRN Reason: Nausea/Vomiting Last Admin: 02/13/21 21:20 Dose: 4 mg Documented by: Propranolol HCl (Propranolol 20 Mg Tab) 20 mg PO DAILY [facility] Last Admin: 02/13/21 08:52 Dose: 20 mg Documented by: Sodium Chloride (Sodium Chloride 0.9% 10 Ml Syringe) 10 ml FLUSH ASDIRECTED PRN PRN Reason: Keep Vein Open Last Admin: 02/12/21 23:32 Dose: 10 ml Documented by: Tamsulosin HCl (Tamsulosin 0.4 Mg Cap.Er) 0.4 mg PO DAILY [facility] Last Admin: 02/13/21 08:52 Dose: 0.4 mg Documented by: Topiramate (Topiramate 25 Mg Tab) 50 mg PO BID [facility] Last Admin: 02/13/21 21:57 Dose: 50 mg Documented by: Discontinued Medications Fentanyl (Fentanyl 100 Mcg/2 Ml Sdv) 50 mcg IVPUSH ONETIME ONE; Protocol Stop: 02/12/21 22:58 Last Admin: 02/12/21 23:12 Dose: 50 mcg Documented by: Hydromorphone HCl (Hydromorphone 1 Mg/Ml Syringe) 1 mg IVPUSH ONETIME ONE Stop: 02/12/21 21:10 Last Admin: 02/12/21 21:15 Dose: 1 mg Documented by: Hydromorphone HCl (Hydromorphone 0.5 Mg/0.5 Ml Syringe) 0.5 mg IVPUSH Q1H PRN PRN Reason: Pain (severe 7-10) Last Admin: 02/13/21 08:38 Dose: 0.5 mg Documented by: Sodium Chloride (Normal Saline) 1,000 mls @ 250 mls/hr IV ASDIRECTED [facility] Last Admin: 02/12/21 20:37 Dose: 250 mls/hr Documented by: Sodium Chloride (Normal Saline) 1,000 mls @ 999 mls/hr IV .BOLUS ONE Stop: 02/12/21 21:17 Last Admin: 02/12/21 23:31 Dose: Not Given Documented by: Iopamidol (Iopamidol 612 Mg/Ml 100 Ml Bottle) 100 ml IVPUSH ONETIME ONE Stop: 02/12/21 21:13 Last Admin: 02/12/21 21:48 Dose: 75 ml Documented by: Ketorolac Tromethamine (Ketorolac 30 Mg/Ml Sdv) 30 mg IVPUSH ONETIME ONE Stop: 02/12/21 20:18 Last Admin: 02/12/21 20:38 Dose: 30 mg Documented by: Ketorolac Tromethamine (Ketorolac 30 Mg/Ml Sdv) 30 mg IVPUSH ONETIME ONE Stop: 02/12/21 20:18 Last Admin: 02/12/21 20:41 Dose: Not Given Documented by: Lorazepam (Lorazepam 2 Mg/Ml Sdv) 1 mg IVPUSH ONETIME ONE Stop: 02/13/21 01:03 Last Admin: 02/13/21 01:26 Dose: 1 mg Documented by: Lorazepam (Lorazepam 2 Mg/Ml Sdv) 1 mg IVPUSH ONETIME ONE Stop: 02/13/21 22:10 Last Admin: 02/13/21 22:17 Dose: 1 mg Documented by: Ondansetron HCl (Ondansetron 4 Mg/2 Ml Sdv) 4 mg IVPUSH ONETIME ONE Stop: 02/12/21 20:18 Last Admin: 02/12/21 20:38 Dose: 4 mg Documented by: Ondansetron HCl (Ondansetron 4 Mg/2 Ml Sdv) 4 mg IVPUSH ONETIME ONE Stop: 02/12/21 20:18 Last Admin: 02/12/21 20:40 Dose: Not Given Documented by: Ondansetron HCl (Ondansetron 4 Mg/2 Ml Sdv) 4 mg IVPUSH ONETIME ONE Stop: 02/12/21 22:58 Last Admin: 02/12/21 23:09 Dose: 4 mg Documented by: - Exam Physical Findings Comments:: General: Princess is a 50-year-old woman in no acute distress Oropharynx is clear, mucous membranes are moist Heart: Regular rate and rhythm, no murmurs Lungs: Clear to auscultation throughout Abdomen: Soft, still has significant tenderness over her suprapubic area, including her uterus and ovaries Ultrasound of the abdomen and pelvis is pending at the time of this note - Patient Data Result Diagrams: 02/13/21 06:10 02/13/21 06:10 Sepsis Event Note - Evaluation Sepsis Screening Result: No Definite Risk - Focused Exam Vital Signs: Vital Signs Temp Pulse Resp BP Pulse Ox 02/14/21 04:00 97.8 F 68 16 116/64 96 02/14/21 00:11 89 L 02/13/21 23:46 97.8 F 74 16 96/41 L 92 L 02/13/21 20:00 97.8 F 70 18 128/63 98 - Problem List & Annotations (1) Pelvic pain SNOMED Code(s): 62839395 Code(s): R10.2 - PELVIC AND PERINEAL PAIN Status: Acute Priority: High Current Visit: Yes (2) Ovarian cyst SNOMED Code(s): 29642310 Code(s): N83.209 - UNSPECIFIED OVARIAN CYST, UNSPECIFIED SIDE Status: Acute Current Visit: Yes Qualifiers: Laterality: bilateral Qualified Code(s): N83.201 - Unspecified ovarian cyst, right side; N83.202 - Unspecified ovarian cyst, left side (3) Kidney stone on left side SNOMED Code(s): 72541613 Code(s): N20.0 - CALCULUS OF KIDNEY Status: Acute Current Visit: No - Problem List Review Problem List Initiated/Reviewed/Updated: Yes - My Orders Last 24 Hours: My Active Orders 02/13/21 Breakfast Regular Diet [DIET] 02/13/21 09:00 FLUoxetine [PROzac] 10 mg PO DAILY Propranolol [Inderal] 20 mg PO DAILY Tamsulosin [Flomax] 0.4 mg PO DAILY Topiramate [Topamax] 50 mg PO BID 02/13/21 11:32 Naloxone [Narcan] 0.04 mg IVPUSH Q3M PRN Ondansetron [Zofran] 4 mg IVPUSH Q6H PRN 02/13/21 11:33 Communication Order [RC] PER UNIT ROUTINE CUT OUT STITCHER Record [RC] Q4H Vital Signs [RC] PER UNIT ROUTINE Pulse Oximetry Continuous Monitoring [OM.PC] Routine 02/13/21 11:45 fentaNYL Citrate/PF [Fentanyl 1,500 MCG/30 ML - Water CUT OUT STITCHER] See Protocol IV ASDIRECTED 02/13/21 15:12 LORazepam [Ativan] 1 mg IVPUSH Q8H PRN 02/13/21 16:00 Ketorolac [Toradol] 30 mg IVPUSH Q6H - Plan Plan:: Assessment/Plan: 1. 50-year-old woman with severe left pelvic pain and left flank pain -She might have some ureteral "sludge" causing some of her pain in her back and her flank -We will start fentanyl CUT OUT STITCHER this morning, to better control her pain, with minimizing the total dose of pain medication she receives and increase safety -Ultrasound this afternoon of the pelvis to characterize the slight swelling with her uterus as well as her ovarian cysts 2. VTE prophylaxis: She is at very low risk of VTE at this time, with a risk score of 1. She is able to ambulate well.
[2021-02-14] MEDS ORDERED: Ketorolac 30 MG/ML SDV IVPUSH SCH (12:15)
[2021-02-14] MEDS: FLUoxetine 10 MG Cap PO SCH (12:21)
[2021-02-14] MEDS: Tamsulosin 0.4 MG Cap.ER PO SCH (12:21)
[2021-02-14] MEDS: Propranolol 20 MG Tab PO SCH (12:21)
[2021-02-14] MEDS: Topiramate 25 MG Tab PO SCH ×2 (12:21→20:09)
[2021-02-14] MEDS ORDERED: Acetaminophen/oxyCODONE 325-5 MG Tab PO PRN (13:40)
--- NOTE | 2021-02-14 19:50 | PCM.DCSUM1 ---
Discharge Summary - Hospital Course Free Text/Narrative:: Princess is a 50-year-old woman who was admitted here with severe pelvic pain. 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 Ultrasound done on hospital day #1 showed her to have significant uterine fibroids, and the ultrasound exam itself reveals that these are very tender. She was given anti-inflammatories, and by hospital day #2, day of discharge, was able to manage her pain with oral medications. She was deemed suitable for discharge home - Discharge Data Discharge Date: 02/14/21 Discharge Disposition: Home, Self-Care 01 Condition: Good - Referral to Home Health Primary Care Physician: PCP None - Discharge Diagnosis/Problem(s) (1) Uterine fibroid SNOMED Code(s): 75191742 ICD Code: D25.9 - LEIOMYOMA OF UTERUS, UNSPECIFIED Status: Acute (2) Pelvic pain SNOMED Code(s): 90197408 ICD Code: R10.2 - PELVIC AND PERINEAL PAIN Status: Acute Priority: High (3) Ovarian cyst SNOMED Code(s): 92783202 ICD Code: N83.209 - UNSPECIFIED OVARIAN CYST, UNSPECIFIED SIDE Status: Acute Qualifiers: Laterality: bilateral Qualified Code(s): N83.201 - Unspecified ovarian cyst, right side; N83.202 - Unspecified ovarian cyst, left side - Discharge Plan *PRESCRIPTION DRUG MONITORING PROGRAM REVIEWED*: Yes *COPY OF PRESCRIPTION DRUG MONITORING REPORT IN PATIENT NETTIE: No Prescriptions/Med Rec: Hydrocodone/Acetaminophen [HYDROcodone-Acetaminophen 10-325 MG] 0.5 - 1 tab PO Q6H PRN #12 PRN Reason: Pain Home Medications: Home Meds FLUoxetine [PROzac] 10 mg PO DAILY 07/17/20 [History] Propranolol [Inderal] 20 mg PO DAILY 07/17/20 [History] Topiramate [Topamax] 50 mg PO BID 07/17/20 [History] Acetaminophen [Tylenol] 650 mg PO Q4H PRN tablet 09/12/20 [Rx] Ondansetron [Zofran ODT] 4 mg PO Q4H PRN tab.dis 09/12/20 [Rx] Tamsulosin [Flomax] 0.4 mg PO DAILY 02/12/21 [History] Omeprazole 20 mg PO BIDAC 02/13/21 [History] Hydrocodone/Acetaminophen [HYDROcodone-Acetaminophen 10-325 MG] 0.5 - 1 tab PO Q6H PRN #12 02/14/21 [Rx] Patient Handouts: Uterine Fibroids Forms: ED Department Discharge Referrals: PCP,None [Primary Care Provider] - - Discharge Summary/Plan Comment DC Time >30 min.: No Total # of Minutes for Discharge Time: 20 Discharge Summary/Plan Comment: Discharge diagnoses: 1. 50-year-old woman with multiple uterine fibroids 2. Severe pelvic pain secondary to #1 Discharge plan: 1. She is discharged home with a small supply of hydrocodone/APAP. I encouraged her to follow-up with [facility] to discuss possible treatment options for this. As she is perimenopausal, a partial hysterectomy may be able to eliminate a lot of her pain - General Info Date of Service: 02/14/21 Admission Dx/Problem (Free Text: Admission Diagnosis/Problem Admission Diagnosis/Problem Kidney stone Subjective Update: See above summary - Patient Data Vitals - Most Recent: Last Vital Signs Temp 97.0 F 02/14/21 16:00 Pulse 63 02/14/21 16:00 Resp 18 02/14/21 16:00 BP 110/53 L 02/14/21 16:00 Pulse Ox 100 02/14/21 16:00 Weight - Most Recent: 162 lb 1.6 oz I&O - Last 24 hours: Intake & Output 02/14/21 02/14/21 02/14/21 06:59 14:59 22:59 Intake Total 60 350 Output Total 700 1500 Balance -700 -1440 350 Med Orders - Current: Current Medications Fluoxetine HCl (Fluoxetine 10 Mg Cap) 10 mg PO DAILY [facility] Last Admin: 02/14/21 12:21 Dose: 10 mg Documented by: Omeprazole (Omeprazole 20 Mg Cap.Cr) 20 mg PO BIDAC MEI Last Admin: 02/14/21 16:38 Dose: 20 mg Documented by: Ondansetron HCl (Ondansetron 4 Mg Tab.Dis) 4 mg PO Q6H PRN PRN Reason: nausea, able to take PO Last Admin: 02/13/21 08:29 Dose: 4 mg Documented by: Ondansetron HCl (Ondansetron 4 Mg/2 Ml Sdv) 4 mg IVPUSH Q6H PRN PRN Reason: Nausea/Vomiting Last Admin: 02/13/21 21:20 Dose: 4 mg Documented by: Oxycodone/Acetaminophen (Acetaminophen/Oxycodone 325-5 Mg Tab) 1 tab PO Q6H PRN PRN Reason: Pain (severe 7-10) Last Admin: 02/14/21 13:59 Dose: 1 tab Documented by: Propranolol HCl (Propranolol 20 Mg Tab) 20 mg PO DAILY [facility] Last Admin: 02/14/21 12:21 Dose: 20 mg Documented by: Sodium Chloride (Sodium Chloride 0.9% 10 Ml Syringe) 10 ml FLUSH ASDIRECTED PRN PRN Reason: Keep Vein Open Last Admin: 02/12/21 23:32 Dose: 10 ml Documented by: Tamsulosin HCl (Tamsulosin 0.4 Mg Cap.Er) 0.4 mg PO DAILY [facility] Last Admin: 02/14/21 12:21 Dose: 0.4 mg Documented by: Topiramate (Topiramate 25 Mg Tab) 50 mg PO BID [facility] Last Admin: 02/14/21 12:21 Dose: 50 mg Documented by: Discontinued Medications Fentanyl (Fentanyl 100 Mcg/2 Ml Sdv) 50 mcg IVPUSH ONETIME ONE; Protocol Stop: 02/12/21 22:58 Last Admin: 02/12/21 23:12 Dose: 50 mcg Documented by: Fentanyl Citrate (Fentanyl Citrate/Pf 1,500 Mcg/30 Ml Product Support Analyst Vial) 0 mcg IV ASDIRECTED [facility]; Protocol Last Admin: 02/13/21 12:20 Dose: 1,500 mcg Documented by: Hydromorphone HCl (Hydromorphone 1 Mg/Ml Syringe) 1 mg IVPUSH ONETIME ONE Stop: 02/12/21 21:10 Last Admin: 02/12/21 21:15 Dose: 1 mg Documented by: Hydromorphone HCl (Hydromorphone 0.5 Mg/0.5 Ml Syringe) 0.5 mg IVPUSH Q1H PRN PRN Reason: Pain (severe 7-10) Last Admin: 02/13/21 08:38 Dose: 0.5 mg Documented by: Sodium Chloride (Normal Saline) 1,000 mls @ 250 mls/hr IV ASDIRECTED [facility] Last Admin: 02/12/21 20:37 Dose: 250 mls/hr Documented by: Sodium Chloride (Normal Saline) 1,000 mls @ 999 mls/hr IV .BOLUS ONE Stop: 02/12/21 21:17 Last Admin: 02/12/21 23:31 Dose: Not Given Documented by: Lactated Ringer's (Ringers, Lactated) 1,000 mls @ 125 mls/hr IV ASDIRECTED [facility] Last Admin: 02/14/21 12:20 Dose: 125 mls/hr Documented by: Iopamidol (Iopamidol 612 Mg/Ml 100 Ml Bottle) 100 ml IVPUSH ONETIME ONE Stop: 02/12/21 21:13 Last Admin: 02/12/21 21:48 Dose: 75 ml Documented by: Ketorolac Tromethamine (Ketorolac 30 Mg/Ml Sdv) 30 mg IVPUSH ONETIME ONE Stop: 02/12/21 20:18 Last Admin: 02/12/21 20:38 Dose: 30 mg Documented by: Ketorolac Tromethamine (Ketorolac 30 Mg/Ml Sdv) 30 mg IVPUSH ONETIME ONE Stop: 02/12/21 20:18 Last Admin: 02/12/21 20:41 Dose: Not Given Documented by: Ketorolac Tromethamine (Ketorolac 30 Mg/Ml Sdv) 30 mg IVPUSH Q6H [facility] Stop: 02/14/21 10:01 Last Admin: 02/14/21 12:57 Dose: Not Given Documented by: Ketorolac Tromethamine (Ketorolac 30 Mg/Ml Sdv) 30 mg IVPUSH Q6H [facility] Stop: 02/14/21 12:16 Last Admin: 02/14/21 12:00 Dose: 30 mg Documented by: Lorazepam (Lorazepam 2 Mg/Ml Sdv) 1 mg IVPUSH ONETIME ONE Stop: 02/13/21 01:03 Last Admin: 02/13/21 01:26 Dose: 1 mg Documented by: Lorazepam (Lorazepam 2 Mg/Ml Sdv) 1 mg IVPUSH Q8H PRN PRN Reason: Anxiety Last Admin: 02/13/21 16:01 Dose: 1 mg Documented by: Lorazepam (Lorazepam 2 Mg/Ml Sdv) 1 mg IVPUSH ONETIME ONE Stop: 02/13/21 22:10 Last Admin: 02/13/21 22:17 Dose: 1 mg Documented by: Naloxone HCl (Naloxone 2 Mg/2 Ml Syringe) 0.04 mg IVPUSH Q3M PRN PRN Reason: Respiratory Depression Ondansetron HCl (Ondansetron 4 Mg/2 Ml Sdv) 4 mg IVPUSH ONETIME ONE Stop: 02/12/21 20:18 Last Admin: 02/12/21 20:38 Dose: 4 mg Documented by: Ondansetron HCl (Ondansetron 4 Mg/2 Ml Sdv) 4 mg IVPUSH ONETIME ONE Stop: 02/12/21 20:18 Last Admin: 02/12/21 20:40 Dose: Not Given Documented by: Ondansetron HCl (Ondansetron 4 Mg/2 Ml Sdv) 4 mg IVPUSH ONETIME ONE Stop: 02/12/21 22:58 Last Admin: 02/12/21 23:09 Dose: 4 mg Documented by: - Exam Physical Findings Comments:: Discharge exam: General: Leeanna is a 50-year-old woman in no acute distress Oropharynx is clear, mucous membranes are moist Neck: Supple, no lymphadenopathy Abdomen soft, she still has some mild tenderness in her suprapubic area, normal bowel sounds throughout
== END 2021-02-14 20:30 | disposition home or self-care (01) | DRG 761 ==
LOC: DL.ED 18:51 → DL.MS 22:25
PROVIDERS: ADMIT Family Medicine; ATTEND Family Medicine
DX: N83.201 Unspecified ovarian cyst, right side (principal); H90.5 Unspecified sensorineural hearing loss; N83.202 Unspecified ovarian cyst, left side; Z87.442 Personal history of urinary calculi; Z79.899 Other long term (current) drug therapy; N20.0 Calculus of kidney; Z88.2 Allergy status to sulfonamides; H91.90 Unspecified hearing loss, unspecified ear; E78.00 Pure hypercholesterolemia, unspecified; Z96.0 Presence of urogenital implants; M19.90 Unspecified osteoarthritis, unspecified site; G43.909 Migraine, unspecified, not intractable, without status migrainosus; F41.9 Anxiety disorder, unspecified; E66.9 Obesity, unspecified; D64.9 Anemia, unspecified; Z98.51 Tubal ligation status; Z20.822 Contact with and (suspected) exposure to COVID-19; Z68.27 Body mass index [BMI] 27.0-27.9, adult
CPT/HCPCS: 36415; 74177; 80053; 85025; J1170; J1885; J2405; J7030; Q9967; 76856; 81001; A9270-GY; J2060; J3010; J7120; U0002

== ENCOUNTER 2021-03-04 17:34 | Emergency (ER) | payer MEDICARE, OTHER, MEDICAID ==
[2021-03-04] MEDS ORDERED: HYDROmorphone 0.5 MG/0.5 ML Syringe IVPUSH ONE (18:27)
[2021-03-04] MEDS ORDERED: Ondansetron 4 MG/2 ML SDV IVPUSH ONE (18:28)
[2021-03-04] MEDS: Sodium Chloride 0.9% 10 ML Syringe FLUSH PRN ×2 (18:51→20:45)
[2021-03-04] MEDS ORDERED: Lidocaine 1% 30 ML SDV INJECT ONE (19:03)
[2021-03-04 19:15] LABS: ANION GAP 15.1 mEq/L (7-13); CHLORIDE,CL 106 mmol/L (98-107); SODIUM,NA 142 mmol/L (136-145)
[2021-03-04] MEDS ORDERED: Lidocaine 2% Viscous Solution 15 ML UD PO ONE (19:42)
[2021-03-04] MEDS ORDERED: Iopamidol 612 MG/ML 100 ML Bottle IVPUSH ONE (20:20)
[2021-03-04] MEDS ORDERED: diphenhydrAMINE 50 MG/ML SDV IVPUSH ONE (20:28)
[2021-03-04] MEDS ORDERED: Sodium Chloride 0.9% 1,000 ML IV ONE (20:28)
[2021-03-04] MEDS ORDERED: Ketorolac 30 MG/ML SDV ONE (20:34)
[2021-03-04] MEDS ORDERED: Ketorolac 30 MG/ML SDV IVPUSH ONE (20:37)
[2021-03-04] MEDS ORDERED: SUMAtriptan 6 MG/0.5 ML SDV SUBCUT ONE (21:34)
[2021-03-04] MEDS ORDERED: HYDROmorphone 1 MG/ML Syringe ONE (21:48)
[2021-03-04] MEDS ORDERED: Promethazine 25 MG/ML SDV IM ONE (22:03)
== END 2021-03-04 22:45 | disposition home or self-care (01) ==
LOC: DL.ED 17:34
DX: F99 Mental disorder, not otherwise specified (principal); F91.9 Conduct disorder, unspecified; E78.00 Pure hypercholesterolemia, unspecified; E66.9 Obesity, unspecified; Z88.8 Allergy status to other drugs, medicaments and biological substances; Z79.899 Other long term (current) drug therapy; Z68.27 Body mass index [BMI] 27.0-27.9, adult
CPT/HCPCS: 36415; 70460; 74177; 80053; 81001; 82150; 83605; 83615; 83690; 83735; 84100; 84443; 85025; 86140; 96372; 96374; 96375; 99284; 99285; J1200; J1885; J2405; J2550; J3030; J7030; Q9967

== ENCOUNTER 2021-04-15 17:37 | Emergency (ER) | payer MEDICARE, OTHER ==
[2021-04-15] MEDS ORDERED: Ondansetron 4 MG/2 ML SDV IV ONE (17:59)
[2021-04-15] MEDS ORDERED: Sodium Chloride 0.9% 10 ML Syringe FLUSH PRN (17:59)
[2021-04-15] MEDS ORDERED: Sodium Chloride 0.9% 1,000 ML IV ONE (17:59)
[2021-04-15] MEDS ORDERED: Lactulose Soln 10 GM/15 ML 30 ML UD Cup PO ONE (18:29)
[2021-04-15 18:44] LABS: ANION GAP 15.4 mEq/L (7-13); CHLORIDE,CL 103 mmol/L (98-107); SODIUM,NA 141 mmol/L (136-145)
--- NOTE | 2021-04-15 18:53 | CR ---
PROCEDURE INFORMATION: Exam: XR Abdomen Exam date and time: 04/15/2021 6:08 PM Age: 50 years old Clinical indication: Constipation and other: Last bm 2 days ago; Prior surgery; Surgery date: 3-7 days post-operative; Additional info: Abdominal pain pod #4 S/P lap. Hysterectomy TECHNIQUE: Imaging protocol: XR of the abdomen. Views: 2 Views. Upright and supine views. COMPARISON: CT Abdomen Pelvis w Cont 03/04/2021 8:42 PM FINDINGS: Gastrointestinal tract: Moderate amount of stool is present within the colon especially the cecum and ascending colon. [id number] grade constipation is likely. Small bowel is not dilated. No bowel obstruction is identified. Intraperitoneal space: Normal. No free air. Organs: Clips in the right upper quadrant likely from prior cholecystectomy. Bones/joints: Unremarkable for age. IMPRESSION: [id number] grade constipation without obstruction.
--- NOTE | 2021-04-15 19:09 | EDM.PDOC ---
Scribed by Abi Castellon 04/15/211901 for Christopher Thomson MD ED HPI GENERAL MEDICAL PROBLEM - General Chief Complaint: Chest Pain Stated Complaint: HISTORECTIMY AND NOW RIBS HURT Time Seen by Provider: 04/15/21 17:49 Source of Information: Reports: Patient, Family (mother), Skin Piler (mother), RN, RN Notes Reviewed History Limitations: Reports: Other (Deaf, pt's mother translates) - History of Present Illness INITIAL COMMENTS - FREE TEXT/NARRATIVE: Patient presents to ED by POV with mother stating that she had a laparoscopic hysterectomy on Friday in [place] (now POD #4). She is now having pain in her abdomen up to her ribs. Pt report abdominal cramping with occ. sharp pains. She has been unable to have a BM for the last 2 days. Pt feels bloated. Onset: Gradual Duration: Constant Location: Reports: Other (ribs) Quality: Reports: Ache Severity: Severe Improves with: Reports: None Worsens with: Reports: None Associated Symptoms: Reports: No Other Symptoms Chest Pain Score (Numeric/FACES): 6 - Related Data Allergies Allergy/AdvReac Type Severity Reaction Status Date / Time sulfacetamide Allergy Other Verified 04/15/21 18:02 Home Meds: Home Meds FLUoxetine [PROzac] 10 mg PO DAILY 07/17/20 [History] Propranolol [Inderal] 20 mg PO DAILY 07/17/20 [History] Topiramate [Topamax] 50 mg PO BID 07/17/20 [History] Ondansetron [Zofran ODT] 4 mg PO Q4H PRN tab.dis 09/12/20 [Rx] Omeprazole 20 mg PO BIDAC 02/13/21 [History] Hydrocodone/Acetaminophen [HYDROcodone-Acetaminophen 10-325 MG] 0.5 - 1 tab PO Q6H PRN #12 02/14/21 [Rx] Glucosam/Chond/Collagen/Hyalur [Glucosamine Chondroitin] 1 cap PO DAILY 03/04/21 [History] Past Medical History HEENT History: Reports: Cataract, Hard of Hearing, Other (See Below) Other HEENT History: CONGENTIAL DEAFNESS Cardiovascular History: Reports: High Cholesterol Respiratory History: Reports: None Gastrointestinal History: Reports: None Genitourinary History: Reports: None, Renal Calculus, Other (See Below) Other Genitourinary History: Left uriter stent. 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 Musculoskeletal History: Reports: Arthritis, Other (See Below) Other Musculoskeletal History: Left knee Neurological History: Reports: Migraines Psychiatric History: Reports: Anxiety Endocrine/Metabolic History: Reports: Obesity/BMI 30+ Hematologic History: Reports: Anemia Immunologic History: Reports: None Oncologic (Cancer) History: Reports: None Dermatologic History: Reports: None - Infectious Disease History Infectious Disease History: Reports: Chicken Pox - Past Surgical History HEENT Surgical History: Reports: Oral Surgery Cardiovascular Surgical History: Reports: None Respiratory Surgical History: Reports: None GI Surgical History: Reports: Cholecystectomy, EGD Female Surgical History: Reports: Tubal Ligation Endocrine Surgical History: Reports: None Neurological Surgical History: Reports: None Musculoskeletal Surgical History: Reports: None Oncologic Surgical History: Reports: None Dermatological Surgical History: Reports: None Social & Family History - Family History Family Medical History: No Pertinent Family History - Caffeine Use Caffeine Use: Reports: None Other Caffeine Use: COCA COLA 1 CAN DAILY Caffeine Use Comment: 1 - 20 oz Mt Dew every 2 wks; coffee intake only when eating out - Living Situation & Occupation Living situation: Reports: with Family ED ROS GENERAL - Review of Systems Review Of Systems: Comprehensive ROS is negative, except as noted in HPI. ED EXAM, GI/ABD - Physical Exam Exam: See Below Exam Limited By: No Limitations General Appearance: Alert, WD/WN, No Apparent Distress Eyes: Bilateral: Normal Appearance Ears: Other (Deaf) Nose: Normal Inspection Throat/Mouth: Normal Inspection, Normal Voice, No Airway Compromise Head: Atraumatic, Normocephalic Neck: Normal Inspection Respiratory/Chest: No Respiratory Distress, Lungs Clear, Normal Breath Sounds, No Accessory Muscle Use, Chest Non-Tender Cardiovascular: Regular Rate, Rhythm, No Edema GI/Abdominal Exam: Normal Bowel Sounds, Soft, No Distention, Tender (Generalized tenderness. Lap. incisions are well healed without signs of infection.). No: Guarding, Rigid, Rebound Back Exam: Normal Inspection. No: CVA Tenderness (L), CVA Tenderness (R) Extremities: Normal Inspection Neurological: Alert, Oriented, No Motor/Sensory Deficits Psychiatric: Normal Mood Skin Exam: Warm, Dry, Intact, Normal Color, No Rash Course - Vital Signs Last Recorded V/S: Last Vital Signs Temp 97.7 F 04/15/21 17:48 Pulse 73 04/15/21 17:48 Resp 14 04/15/21 17:48 BP 133/75 04/15/21 17:48 Pulse Ox 97 04/15/21 17:48 - Orders/Labs/Meds Orders: Active Orders 24 hr Category Date Time Status Peripheral IV Care [RC] . DIRECTED Care 04/15/21 18:01 Active CULTURE URINE [RM] Stat Lab 04/15/21 18:03 Received Sodium Chloride 0.9% [Normal Saline] 1,000 ml Med 04/15/21 17:59 Active IV .BOLUS Sodium Chloride 0.9% [Saline Flush] Med 04/15/21 17:59 Active 10 ml FLUSH ASDIRECTED PRN Peripheral IV Insertion Adult [OM.PC] Stat Oth 04/15/21 17:59 Ordered Medication Orders Sodium Chloride (Normal Saline) 1,000 mls @ 999 mls/hr IV .BOLUS ONE Stop: 04/15/21 18:59 Last Admin: 04/15/21 18:23 Dose: 999 mls/hr Documented by: ALBERTINA Sodium Chloride (Sodium Chloride 0.9% 10 Ml Syringe) 10 ml FLUSH ASDIRECTED PRN PRN Reason: Keep Vein Open Labs: Laboratory Tests 04/15/21 04/15/21 04/15/21 Range/Units 18:03 18:16 18:16 WBC 9.4 (5.0-10.0) 10^3/uL RBC 4.32 (4.2-5.4) 10^6/uL Hgb 11.8 L (12.0-16.0) g/dL Hct 37.5 (37.0-47.0) % MCV 86.8 (80-100) fL MCH 27.3 (27.0-34.0) pg MCHC 31.5 L (33.0-35.0) g/dL Plt Count 283 (150-450) 10^3/uL Neut % (Auto) 71.7 (42.2-75.2) % Lymph % (Auto) 17.1 L (20.5-50.1) % [place] % (Auto) 8.0 (2-8) % Eos % (Auto) 3.0 (1.0-3.0) % Baso % (Auto) 0.2 (0.0-1.0) % Sodium 141 (136-145) mmol/L Potassium 4.4 (3.5-5.1) mmol/L Chloride 103 (98-107) mmol/L Carbon Dioxide 27 (21-32) mmol/L Anion Gap 15.4 H (7-13) mEq/L BUN 15 (7-18) mg/dL Creatinine 0.68 (0.55-1.02) mg/dL Est Cr Clr Drug Dosing 86.42 mL/min Estimated GFR (MDRD) > 60 BUN/Creatinine Ratio 22.1 (No establ ref range) Glucose 102 H (70-99) mg/dL Calcium 9.7 (8.5-10.1) mg/dL Total Bilirubin 0.3 (0.2-1.0) mg/dL AST 24 (15-37) U/L ALT 15 (14-59) U/L Alkaline Phosphatase 71 (46-116) U/L Total Protein 7.2 (6.4-8.2) g/dL Albumin 3.6 (3.4-5.0) g/dL Globulin 3.6 Albumin/Globulin Ratio 1.0 Amylase 39 (25-115) U/L Urine Color Yellow (YELLOW) Urine Appearance Cloudy (CLEAR) Urine pH 7.5 (5.0-9.0) Ur Specific [place] 1.020 (1.005-1.030) Urine Protein Negative (NEGATIVE) Urine Glucose (UA) Negative (NEGATIVE) Urine Ketones Negative (NEGATIVE) Urine Occult Blood Small H (NEGATIVE) Urine Nitrite Negative (NEGATIVE) Urine Bilirubin Negative (NEGATIVE) Urine Urobilinogen 0.2 (0.2-1.0) mg/dL Ur Leukocyte Esterase Trace H (NEGATIVE) Urine RBC 0-5 (0-5) /HPF Urine WBC 0-5 (0-5/HPF) /HPF Ur Epithelial Cells Moderate H (NOT SEEN) /HPF Urine Bacteria Moderate H (0-FEW/HPF) /HPF Meds: Medications Generic Name Dose Route Start Last Admin Trade Name Freq PRN Reason Stop Dose Admin Sodium Chloride 1,000 mls @ 999 mls/hr 04/15/21 17:59 04/15/21 18:23 Normal Saline IV 04/15/21 18:59 999 mls/hr .BOLUS ONE Administration Sodium Chloride 10 ml 04/15/21 17:59 Sodium Chloride 0.9% 10 Ml Syringe FLUSH ASDIRECTED PRN Keep Vein Open Discontinued Medications Generic Name Dose Route Start Last Admin Trade Name Martínez PRN Reason Stop Dose Admin Lactulose 20 gm 04/15/21 18:29 04/15/21 18:36 Lactulose Soln 10 Gm/15 Ml 30 Ml Ud Cup PO 04/15/21 18:30 20 gm ONETIME ONE Administration Ondansetron HCl 4 mg 04/15/21 17:59 04/15/21 18:23 Ondansetron 4 Mg/2 Ml Sdv IV 04/15/21 18:00 4 mg ONETIME ONE Administration - Radiology Interpretation Free Text/Narrative:: XR Abd: constipation without obstruction per Radiologist report. Departure - Departure Time of Disposition: 19:02 Disposition: Home, Self-Care 01 Condition: Good Clinical Impression: Constipation Qualifiers: Constipation type: drug induced constipation Qualified Code(s): K59.03 - Drug induced constipation Abdominal pain Qualifiers: Abdominal location: generalized Qualified Code(s): R10.84 - Generalized abdominal pain - Discharge Information *PRESCRIPTION DRUG MONITORING PROGRAM REVIEWED*: Not Applicable *COPY OF PRESCRIPTION DRUG MONITORING REPORT IN PATIENT NETTIE: Not Applicable Instructions: Constipation, Adult, Abdominal Pain, Adult, [id number] Forms: ED Department Discharge Additional Instructions: Take Senna and MiraLAX tonight, and again tomorrow. Take 2 dosing cups (60mls) of Milk of Magnesia tomorrow if you have not had a bowel movement by noon. Drink plenty of water or juice. Walk as much as possible in the house over the next few days to get the bowels active after surgery. Return to ER if any new or concerning symptoms develop, otherwise follow up in clinic with your primary doctor or surgeon as needed. Sepsis Event Note (ED) - Focused Exam Vital Signs: Vital Signs Temp Pulse Resp BP Pulse Ox 04/15/21 17:48 97.7 F 73 14 133/75 97 - My Orders Last 24 Hours: My Active Orders 04/15/21 17:59 Sodium Chloride 0.9% [Normal Saline] 1,000 ml IV .BOLUS Sodium Chloride 0.9% [Saline Flush] 10 ml FLUSH ASDIRECTED PRN Peripheral IV Insertion Adult [OM.PC] Stat 04/15/21 18:01 Peripheral IV Care [RC] . DIRECTED 04/15/21 18:03 CULTURE URINE [RM] Stat - Assessment/Plan Last 24 Hours: My Active Orders 04/15/21 17:59 Sodium Chloride 0.9% [Normal Saline] 1,000 ml IV .BOLUS Sodium Chloride 0.9% [Saline Flush] 10 ml FLUSH ASDIRECTED PRN Peripheral IV Insertion Adult [OM.PC] Stat 04/15/21 18:01 Peripheral IV Care [RC] . DIRECTED 04/15/21 18:03 CULTURE URINE [RM] Stat I have read and agree with the documentation that has been completed regarding this visit. By signing this record, I attest that the documentation was completed in my physical presence and is an accurate record of the encounter.
== END 2021-04-15 19:16 | disposition home or self-care (01) ==
LOC: DL.ED 17:37
DX: K59.03 Drug induced constipation (principal); T50.905A Adverse effect of unspecified drugs, medicaments and biological substances, initial encounter; E66.9 Obesity, unspecified; Z88.2 Allergy status to sulfonamides; Z79.899 Other long term (current) drug therapy; Z68.28 Body mass index [BMI] 28.0-28.9, adult
CPT/HCPCS: 36415; 74019; 80053; 81001; 82150; 85025; 87086; 96374; 99284; A9270; J2405; J7030; 87088; 87186

== ENCOUNTER 2021-06-14 06:17 | Day surgery (SDC) | payer MEDICARE, OTHER, MEDICAID ==
[~2021-06-14 06:17] MED LIST changes: +Midazolam 1 MG/ML 2 ML SDV ONE; +fentaNYL 100 MCG/2 ML SDV ONE
[2021-06-14] MEDS ORDERED: Midazolam 1 MG/ML 2 ML SDV IV ONE ×7 (06:18→08:06)
[2021-06-14] MEDS ORDERED: fentaNYL 100 MCG/2 ML SDV IV ONE ×5 (06:18→08:08)
[2021-06-14] MEDS ORDERED: Sodium Chloride 0.9% 10 ML Syringe FLUSH SCH (09:00)
== END 2021-06-14 10:20 | disposition home or self-care (01) ==
LOC: DL.ENDO 06:17
PROVIDERS: ATTEND Internal Medicine Gastroenterology
DX: K62.6 Ulcer of anus and rectum (principal); K59.09 Other constipation; F41.1 Generalized anxiety disorder; K21.9 Gastro-esophageal reflux disease without esophagitis; Z90.49 Acquired absence of other specified parts of digestive tract; Z98.890 Other specified postprocedural states
CPT/HCPCS: J2250; J3010; J7042

== ENCOUNTER → 2021-11-08 | Day surgery (SDC) | payer MEDICARE, OTHER | END | disposition home or self-care (01) | LOC: DL.SDS 05:50 | PROVIDERS: ATTEND Internal Medicine Gastroenterology | DX: K62.6 Ulcer of anus and rectum (principal); K21.9 Gastro-esophageal reflux disease without esophagitis; E66.09 Other obesity due to excess calories; H91.90 Unspecified hearing loss, unspecified ear; Z68.30 Body mass index [BMI] 30.0-30.9, adult | CPT/HCPCS: 88305 ==

== ENCOUNTER 2022-01-28 05:06 | Emergency (ER) | payer MEDICARE, OTHER ==
[2022-01-28] MEDS ORDERED: Nitrofurantoin Monohydrate/Macrocrystalline 100 MG Cap PO ONE (21:00)
[2022-02-22 12:57] LABS: ANION GAP 13.4 mEq/L (7-13); CHLORIDE,CL 107 mmol/L (98-107); ESTIMATED GFR 105 mL/min (>=60); SODIUM,NA 142 mmol/L (136-145)
[2022-02-22 12:58] LABS: PTT,PARTIAL THROMBOPLSTIN TIME 24.5 SEC (22.0-34.0)
== END 2022-01-28 21:09 | disposition home or self-care (01) ==
LOC: DL.ED 05:06
DX: N39.0 Urinary tract infection, site not specified (principal); K62.5 Hemorrhage of anus and rectum
CPT/HCPCS: 36415; 74177; 80053; 81001; 81003; 82150; 82272; 82728; 83540; 83550; 83690; 85025; 85610; 85730; 87086; 87088; 87186; 99284

== ENCOUNTER 2022-02-27 12:21 | Emergency (ER) | payer MEDICARE, OTHER ==
[2022-02-27] MEDS ORDERED: Sodium Chloride 0.9% 10 ML Syringe FLUSH PRN ×2 (14:40→14:45)
[2022-02-27] MEDS ORDERED: HYDROmorphone 1 MG/ML Syringe IVPUSH ONE ×2 (14:45→15:45)
[2022-02-27] MEDS ORDERED: Sodium Chloride 0.9% 1,000 ML IV ONE (14:45)
[2022-02-27 15:26] LABS: ANION GAP 12.8 mEq/L (7-13); CHLORIDE,CL 106 mmol/L (98-107); SODIUM,NA 142 mmol/L (136-145)
[2022-02-27 15:29] LABS: ESTIMATED GFR 104 mL/min (>=60)
[2022-02-27] MEDS ORDERED: Iopamidol 612 MG/ML 100 ML Bottle IVPUSH ONE (15:45)
[2022-02-27] MEDS ORDERED: Ketorolac 30 MG/ML SDV IVPUSH ONE (16:48)
[2022-02-27] MEDS ORDERED: fentaNYL 100 MCG/2 ML SDV IVPUSH ONE (17:17)
[2022-02-27] MEDS ORDERED: diphenhydrAMINE 50 MG/ML SDV IVPUSH ONE (17:36)
== END 2022-02-27 18:03 | disposition home or self-care (01) ==
LOC: DL.ED 12:21
DX: N20.0 Calculus of kidney (principal); N39.0 Urinary tract infection, site not specified; E78.00 Pure hypercholesterolemia, unspecified; E66.9 Obesity, unspecified; Z68.29 Body mass index [BMI] 29.0-29.9, adult; Z88.8 Allergy status to other drugs, medicaments and biological substances; Z79.899 Other long term (current) drug therapy
CPT/HCPCS: 36415; 74177; 80053; 81001; 82150; 83605; 83690; 84145; 85025; 86140; 96361; 96374; 96375; 96376; 99284; J1170; J1200; J1885; J3010; J3490; J7030; Q9967

== ENCOUNTER 2022-07-27 12:41 | Emergency (ER) | payer MEDICARE, OTHER | END 2022-07-27 14:36 | disposition left against medical advice (07) | LOC: DL.ED 12:41 | DX: Z53.21 Procedure and treatment not carried out due to patient leaving prior to being seen by health care provider (principal) | CPT/HCPCS: 81001; 87086 ==

== ENCOUNTER 2022-11-28 10:50 | Emergency (ER) | payer MEDICARE, OTHER ==
[2022-11-28] MEDS ORDERED: Sodium Chloride 0.9% 10 ML Syringe FLUSH PRN (11:43)
[2022-11-28] MEDS ORDERED: fentaNYL 100 MCG/2 ML SDV IVPUSH ONE (12:05)
[2022-11-28] MEDS ORDERED: Ondansetron 4 MG/2 ML SDV IVPUSH ONE (12:05)
[2022-11-28 12:06] LABS: BASOPHILS PERCENT AUTO 0.1 % (0.0-1.0); EOSINOPHILS PERCENT AUTO 1.2 % (1.0-3.0); HEMATOCRIT 40.4 % (37.0-47.0); LYMPHOCYTES PERCENT AUTO 12.3 % (20.5-50.1); MEAN CORPUSCULAR HEMOGLOBIN 28.8 pg (27.0-34.0); MEAN CORPUSCULAR HGB CONC 32.2 g/dL (33.0-35.0); MEAN CORPUSCULAR VOLUME 89.4 fL (80-100); MONOCYTES PERCENT AUTO 6.8 % (2-8); NEUTROPHILS PERCENT AUTO 79.6 % (42.2-75.2); PLATELET COUNT,PLT 295 10^3/uL (150-450); RED BLOOD CELL COUNT 4.52 10^6/uL (4.2-5.4); WHITE BLOOD CELL COUNT,WBC 9.4 10^3/uL (5.0-10.0)
[2022-11-28 12:24] LABS: A/G RATIO 0.9; ALANINE AMINOTRANSFERASE,ALT 16 U/L (14-59); ALBUMIN 3.7 g/dL (3.4-5.0); ALKALINE PHOSPHATASE 111 U/L (46-116); ASPARTATE AMNIOTRANSFERASE,AST 12 U/L (15-37); BILIRUBIN TOTAL 0.4 mg/dL (0.2-1.0); BLOOD UREA NITROGEN,BUN 9 mg/dL (7-18); BUN/CREATININE RATIO 11.2 (No establ ref range); CALCIUM 8.9 mg/dL (8.5-10.1); CARBON DIOXIDE,CO2 24 mmol/L (21-32); CHLORIDE,CL 106 mmol/L (98-107); EST CRCL DRUG DOSING (CG) 71.84 mL/min; GLUCOSE RANDOM 103 mg/dL (70-99); PROTHROMBIN TIME 9.9 SEC (9.0-12.0); PTT,PARTIAL THROMBOPLSTIN TIME 27.8 SEC (22.0-34.0); SODIUM,NA 141 mmol/L (136-145)
[2022-11-28 12:27] LABS: C-REACTIVE PROTEIN < 0.2 mg/dL (0.0-0.9); ESTIMATED GFR 89 mL/min (>=60); LACTIC ACID 0.9 mmol/L (0.4-2.0)
[2022-11-28 12:41] LABS: APPEARANCE,URINE SLIGHTLY CLOUDY (CLEAR); BILIRUBIN,URINE NEGATIVE (NEGATIVE); COLOR,URINE YELLOW (YELLOW); GLUCOSE,URINE NEGATIVE (NEGATIVE); KETONES,URINE NEGATIVE (NEGATIVE); LEUKOCYTE ESTERASE,URINE NEGATIVE (NEGATIVE); NITRITE,URINE NEGATIVE (NEGATIVE); OCCULT BLOOD,URINE NEGATIVE (NEGATIVE); PH,URINE 8.5 (5.0-9.0); PROTEIN,URINE TRACE (NEGATIVE); UROBILINOGEN,URINE 0.2 mg/dL (0.2-1.0)
[2022-11-28] MEDS ORDERED: Iopamidol 612 MG/ML 100 ML Bottle IVPUSH ONE (12:47)
[2022-11-28 12:52] LABS: AMORPHOUS SEDIMENT,URINE MODERATE /HPF (NOT SEEN); BACTERIA,URINE MODERATE /HPF (0-FEW/HPF); EPITHELIAL CELLS,URINE FEW /HPF (NOT SEEN); MUCUS,URINE FEW /LPF (NOT SEEN); RBC,URINE 0-5 /HPF (0-5)
[2022-11-28] MEDS ORDERED: Ketorolac 30 MG/ML SDV IVPUSH ONE (13:39)
[2022-11-28] MEDS ORDERED: predniSONE 20 MG Tab PO ONE (14:48)
== END 2022-11-28 15:12 | disposition home or self-care (01) ==
LOC: DL.ED 10:50
DX: N20.0 Calculus of kidney (principal); K63.89 Other specified diseases of intestine; E78.00 Pure hypercholesterolemia, unspecified; K21.9 Gastro-esophageal reflux disease without esophagitis; E66.9 Obesity, unspecified; Z79.899 Other long term (current) drug therapy; Z68.29 Body mass index [BMI] 29.0-29.9, adult
CPT/HCPCS: 36415; 74178; 80053; 81001; 83605; 85025; 85610; 85730; 86140; 87040; 96374; 96375; 99284-25; J1885; J2405; J3010; J3490; J7512; Q9967

== ENCOUNTER 2023-07-10 20:46 | Emergency (ER) | payer MEDICARE, OTHER ==
[2023-07-10 22:09] LABS: EOSINOPHILS PERCENT AUTO 0.1 % (1.0-3.0); HEMATOCRIT 39.6 % (37.0-47.0); HEMOGLOBIN 12.9 g/dL (12.0-16.0); LYMPHOCYTES PERCENT AUTO 3.9 % (20.5-50.1); MEAN CORPUSCULAR HGB CONC 32.6 g/dL (33.0-35.0); MONOCYTES PERCENT AUTO 3.4 % (2-8); NEUTROPHILS PERCENT AUTO 92.6 % (42.2-75.2); PLATELET COUNT,PLT 236 10^3/uL (150-450); RED BLOOD CELL COUNT 4.45 10^6/uL (4.2-5.4); WHITE BLOOD CELL COUNT,WBC 9.9 10^3/uL (5.0-10.0)
[2023-07-10] MEDS: Sodium Chloride 0.9% 10 ML Syringe FLUSH PRN (22:17)
[2023-07-10] MEDS: Ondansetron 4 MG/2 ML SDV IVPUSH ONE (22:17)
[2023-07-10] MEDS: Morphine 4 MG/ML Syringe IVPUSH ONE ×2 (22:17→23:53)
[2023-07-10 22:31] LABS: A/G RATIO 1.1; ALANINE AMINOTRANSFERASE,ALT 16 U/L (14-59); ALBUMIN 3.8 g/dL (3.4-5.0); ALKALINE PHOSPHATASE 87 U/L (46-116); ANION GAP 17.3 mEq/L (7-13); ASPARTATE AMNIOTRANSFERASE,AST 12 U/L (15-37); BILIRUBIN TOTAL 0.5 mg/dL (0.2-1.0); BLOOD UREA NITROGEN,BUN 13 mg/dL (7-18); BUN/CREATININE RATIO 14.6 (No establ ref range); CALCIUM 8.2 mg/dL (8.5-10.1); CARBON DIOXIDE,CO2 21 mmol/L (21-32); CHLORIDE,CL 105 mmol/L (98-107); CREATININE 0.89 mg/dL (0.55-1.02); EST CRCL DRUG DOSING (CG) 67.29 mL/min; GLUCOSE RANDOM 110 mg/dL (70-99); LIPASE 23 U/L (16-77); POTASSIUM,K 3.3 mmol/L (3.5-5.1); PROTEIN TOTAL,TP 7.2 g/dL (6.4-8.2); SODIUM,NA 140 mmol/L (136-145)
[2023-07-10 22:33] LABS: ESTIMATED GFR 78 mL/min (>=60)
[2023-07-10] MEDS: Iopamidol 612 MG/ML 100 ML Bottle IVPUSH ONE (23:01)
[2023-07-10 23:05] LABS: CORONAVIRUS COVID-19 NAA NEGATIVE (NEGATIVE); INFLUENZA A NAA NEGATIVE (NEGATIVE); INFLUENZA B NAA NEGATIVE (NEGATIVE)
[2023-07-10 23:07] LABS: APPEARANCE,URINE CLEAR (CLEAR); BILIRUBIN,URINE NEGATIVE (NEGATIVE); COLOR,URINE YELLOW (YELLOW); GLUCOSE,URINE NEGATIVE (NEGATIVE); KETONES,URINE 80 (NEGATIVE); LEUKOCYTE ESTERASE,URINE NEGATIVE (NEGATIVE); NITRITE,URINE NEGATIVE (NEGATIVE); OCCULT BLOOD,URINE NEGATIVE (NEGATIVE); PH,URINE 7.5 (5.0-9.0); PROTEIN,URINE 30 (NEGATIVE); UROBILINOGEN,URINE 0.2 mg/dL (0.2-1.0)
[2023-07-10 23:24] LABS: BACTERIA,URINE MODERATE /HPF (0-FEW/HPF); EPITHELIAL CELLS,URINE MODERATE /HPF (NOT SEEN); MUCUS,URINE MANY /LPF (NOT SEEN); RBC,URINE 0-5 /HPF (0-5)
[2023-07-10] MEDS: Sodium Chloride 0.9% 1,000 ML IV ONE (23:53)
[2023-07-11] MEDS: Dicyclomine 20 MG/2 ML SDV IM ONE (00:55)
[2023-07-11] MEDS: Potassium Chloride 10 MEQ Tab.ER PO ONE (01:24)
[2023-07-11] MEDS: Ketorolac 30 MG/ML SDV IM ONE (01:24)
== END 2023-07-11 01:33 | disposition home or self-care (01) ==
LOC: DL.ED 20:46
DX: K52.9 Noninfective gastroenteritis and colitis, unspecified (principal); E87.6 Hypokalemia; E86.0 Dehydration; E78.00 Pure hypercholesterolemia, unspecified; Z90.49 Acquired absence of other specified parts of digestive tract; Z90.710 Acquired absence of both cervix and uterus; Z79.899 Other long term (current) drug therapy; Z88.2 Allergy status to sulfonamides
CPT/HCPCS: 0240U; 36415; 74177; 80053; 81001; 83690; 84484; 85025; 93005; 93010; 96361; 96372; 96374; 96375; 96376; 99284; 99284-25; A9270-GY; J0500; J1885; J2270; J2405; J3490; J7030; Q9967

== ENCOUNTER 2023-11-11 07:19 | Day surgery (SDC) | payer MEDICARE, OTHER ==
[~2023-11-11 07:19] MED LIST changes: -Dextrose 5%-0.45% NaCl 1,000 ML IV SCH; -Sodium Chloride 0.9% 10 ML Syringe FLUSH PRN
[2023-11-11] MEDS ORDERED: Midazolam 1 MG/ML 2 ML SDV IV ONE (07:20)
[2023-11-11] MEDS ORDERED: fentaNYL 100 MCG/2 ML SDV IV ONE (07:20)
[2023-11-11] MEDS: Dextrose 5%-0.45% NaCl 1,000 ML IV SCH (08:12)
[2023-11-11] MEDS: fentaNYL 100 MCG/2 ML SDV IV ONE ×2 (08:41→08:42)
[2023-11-11] MEDS: Midazolam 1 MG/ML 2 ML SDV IV ONE ×2 (08:42→08:43)
== END 2023-11-11 10:27 | disposition home or self-care (01) ==
LOC: DL.ENDO 07:19
PROVIDERS: ATTEND Internal Medicine Gastroenterology
DX: R10.13 Epigastric pain (principal); K31.7 Polyp of stomach and duodenum; F41.9 Anxiety disorder, unspecified
CPT/HCPCS: 43239; 87077; 88305; J2250; J3010; J7799

== ENCOUNTER 2023-12-22 00:38 | Emergency (ER) | payer MEDICARE, OTHER ==
[2023-12-22] MEDS: Acetaminophen 325 MG Tab PO ONE (01:27)
[2023-12-22 01:45] LABS: BASOPHILS PERCENT AUTO 0.1 % (0.0-1.0); EOSINOPHILS PERCENT AUTO 2.7 % (1.0-3.0); HEMATOCRIT 38.6 % (37.0-47.0); LYMPHOCYTES PERCENT AUTO 27.9 % (20.5-50.1); MEAN CORPUSCULAR HEMOGLOBIN 28.7 pg (27.0-34.0); MEAN CORPUSCULAR HGB CONC 31.1 g/dL (33.0-35.0); MEAN CORPUSCULAR VOLUME 92.3 fL (80-100); MONOCYTES PERCENT AUTO 8.2 % (2-8); NEUTROPHILS PERCENT AUTO 61.1 % (42.2-75.2); PLATELET COUNT,PLT 259 10^3/uL (150-450); RED BLOOD CELL COUNT 4.18 10^6/uL (4.2-5.4); WHITE BLOOD CELL COUNT,WBC 7.5 10^3/uL (5.0-10.0)
[2023-12-22 01:54] LABS: APPEARANCE,URINE CLEAR (CLEAR); BILIRUBIN,URINE NEGATIVE (NEGATIVE); COLOR,URINE YELLOW (YELLOW); GLUCOSE,URINE NEGATIVE (NEGATIVE); KETONES,URINE NEGATIVE (NEGATIVE); LEUKOCYTE ESTERASE,URINE NEGATIVE (NEGATIVE); NITRITE,URINE NEGATIVE (NEGATIVE); OCCULT BLOOD,URINE NEGATIVE (NEGATIVE); PROTEIN,URINE NEGATIVE (NEGATIVE)
[2023-12-22 02:05] LABS: A/G RATIO 0.9; ALANINE AMINOTRANSFERASE,ALT 17 U/L (14-59); ALBUMIN 3.4 g/dL (3.4-5.0); ALKALINE PHOSPHATASE 97 U/L (46-116); ANION GAP 9.6 mEq/L (7-13); ASPARTATE AMNIOTRANSFERASE,AST 10 U/L (15-37); BILIRUBIN TOTAL 0.2 mg/dL (0.2-1.0); BLOOD UREA NITROGEN,BUN 13 mg/dL (7-18); BUN/CREATININE RATIO 15.9 (No establ ref range); CALCIUM 8.8 mg/dL (8.5-10.1); CARBON DIOXIDE,CO2 29 mmol/L (21-32); CHLORIDE,CL 106 mmol/L (98-107); CREATINE KINASE,CK 96 U/L (16-191); CREATININE 0.82 mg/dL (0.55-1.02); EST CRCL DRUG DOSING (CG) 72.22 mL/min; GLUCOSE RANDOM 100 mg/dL (70-99); LIPASE 72 U/L (16-77); MAGNESIUM 1.7 mg/dL (1.8-2.4); POTASSIUM,K 3.6 mmol/L (3.5-5.1); SODIUM,NA 141 mmol/L (136-145)
[2023-12-22 02:06] LABS: ESTIMATED GFR 86 mL/min (>=60)
[2023-12-22] MEDS: Magnesium Sulfate/Water 2 GM in Premix Bag 1 BAG IV ONE (02:36)
== END 2023-12-22 03:18 | disposition home or self-care (01) ==
LOC: DL.ED 00:38
DX: G43.909 Migraine, unspecified, not intractable, without status migrainosus (principal); E83.42 Hypomagnesemia; E66.9 Obesity, unspecified; Z68.26 Body mass index [BMI] 26.0-26.9, adult; Z90.49 Acquired absence of other specified parts of digestive tract; Z90.710 Acquired absence of both cervix and uterus; Z79.899 Other long term (current) drug therapy; Z88.2 Allergy status to sulfonamides
CPT/HCPCS: 36415; 80053; 80307; 81003; 82550; 83690; 83735; 84484; 85025; 87081; 87430; 87804; 93005; 93010; 96365; 99283-25; 99284; A9270-GY; J3475; U0002

== ENCOUNTER 2024-04-24 11:28 | Emergency (ER) | payer MEDICARE, OTHER ==
[2024-04-24] MEDS: Ketorolac 30 MG/ML SDV IM ONE (11:55)
[2024-04-24] MEDS: Ondansetron 4 MG Tab.DIS PO ONE (11:55)
[2024-04-24 12:07] LABS: BASOPHILS PERCENT AUTO 0.1 % (0.0-1.0); EOSINOPHILS PERCENT AUTO 0.7 % (1.0-3.0); HEMATOCRIT 40.4 % (37.0-47.0); HEMOGLOBIN 12.9 g/dL (12.0-16.0); LYMPHOCYTES PERCENT AUTO 6.7 % (20.5-50.1); MEAN CORPUSCULAR HGB CONC 31.9 g/dL (33.0-35.0); MEAN CORPUSCULAR VOLUME 87.6 fL (80-100); MONOCYTES PERCENT AUTO 6.1 % (2-8); NEUTROPHILS PERCENT AUTO 86.4 % (42.2-75.2); PLATELET COUNT,PLT 259 10^3/uL (150-450); RED BLOOD CELL COUNT 4.61 10^6/uL (4.2-5.4); WHITE BLOOD CELL COUNT,WBC 9.9 10^3/uL (5.0-10.0)
[2024-04-24 12:09] LABS: APPEARANCE,URINE SLIGHTLY CLOUDY (CLEAR); BILIRUBIN,URINE NEGATIVE (NEGATIVE); COLOR,URINE YELLOW (YELLOW); GLUCOSE,URINE NEGATIVE (NEGATIVE); KETONES,URINE NEGATIVE (NEGATIVE); LEUKOCYTE ESTERASE,URINE NEGATIVE (NEGATIVE); NITRITE,URINE NEGATIVE (NEGATIVE); OCCULT BLOOD,URINE TRACE-INTACT (NEGATIVE); PH,URINE 7.5 (5.0-9.0); PROTEIN,URINE 30 (NEGATIVE); UROBILINOGEN,URINE 0.2 mg/dL (0.2-1.0)
[2024-04-24 12:31] LABS: A/G RATIO 0.9; ALANINE AMINOTRANSFERASE,ALT 22 U/L (14-59); ALBUMIN 3.7 g/dL (3.4-5.0); ALKALINE PHOSPHATASE 117 U/L (46-116); ASPARTATE AMNIOTRANSFERASE,AST 14 U/L (15-37); BILIRUBIN TOTAL 0.3 mg/dL (0.2-1.0); BLOOD UREA NITROGEN,BUN 13 mg/dL (7-18); BUN/CREATININE RATIO 17.8 (No establ ref range); C-REACTIVE PROTEIN 3.13 ng/dL (<=0.50); CALCIUM 8.8 mg/dL (8.5-10.1); CARBON DIOXIDE,CO2 28 mmol/L (21-32); CHLORIDE,CL 103 mmol/L (98-107); CREATININE 0.73 mg/dL (0.55-1.02); EST CRCL DRUG DOSING (CG) 77.84 mL/min; GLUCOSE RANDOM 103 mg/dL (70-99); PROTEIN TOTAL,TP 7.7 g/dL (6.4-8.2); SODIUM,NA 140 mmol/L (136-145)
[2024-04-24 12:45] LABS: PROTHROMBIN TIME 9.9 SEC (9.0-12.0); PTT,PARTIAL THROMBOPLSTIN TIME 27.6 SEC (22.0-34.0)
[2024-04-24 12:46] LABS: ESTIMATED GFR 99 mL/min (>=60)
[2024-04-24 12:56] LABS: WBC,URINE 0-5 /HPF (0-5/HPF)
[2024-04-24 12:57] LABS: AMORPHOUS SEDIMENT,URINE MODERATE /HPF (NOT SEEN); BACTERIA,URINE FEW /HPF (0-FEW/HPF); EPITHELIAL CELLS,URINE FEW /HPF (NOT SEEN); MUCUS,URINE RARE /LPF (NOT SEEN)
[2024-04-24] MEDS: Take Home: Ondansetron 4 MG Tab.DIS, 5 Tab Pack PO ONE (15:17)
[2024-04-24] MEDS: Ketorolac 10 MG Tab PO ONE (15:22)
== END 2024-04-24 15:35 | disposition home or self-care (01) ==
LOC: DL.ED 11:28
DX: N20.0 Calculus of kidney (principal); E66.9 Obesity, unspecified; Z68.32 Body mass index [BMI] 32.0-32.9, adult; Z90.49 Acquired absence of other specified parts of digestive tract; Z90.710 Acquired absence of both cervix and uterus; Z88.8 Allergy status to other drugs, medicaments and biological substances; Z79.899 Other long term (current) drug therapy
CPT/HCPCS: 36415; 74176; 80053; 81001; 83605; 84145; 85025; 85610; 85730; 86140; 96372; 99284; A9270; J1885; Q0162

== ENCOUNTER 2024-04-24 22:08 | Emergency (ER) | payer MEDICARE, OTHER ==
[2024-04-24] MEDS ORDERED: Oxybutynin 5 MG Tab PO ONE (22:09)
[2024-04-24] MEDS: Morphine 2 MG/ML SYRINGE IM ONE (23:22)
[2024-04-24] MEDS ORDERED: Oxybutynin 5 MG Tab.ER PO SCH (23:30)
[2024-04-24] MEDS: Oxybutynin 5 MG Tab.ER PO STA (23:31)
[2024-04-24] MEDS: Take Home: Acetaminophen/oxyCODONE 325-5 MG, 5 Tab Pack PO ONE (23:31)
[2024-04-24] MEDS ORDERED: Oxybutynin 5 MG Tab.ER ONE (23:35)
== END 2024-04-25 00:25 | disposition home or self-care (01) ==
LOC: DL.ED 22:08
DX: N20.0 Calculus of kidney (principal); R11.2 Nausea with vomiting, unspecified; R31.29 Other microscopic hematuria; E66.9 Obesity, unspecified; Z68.32 Body mass index [BMI] 32.0-32.9, adult; Z90.49 Acquired absence of other specified parts of digestive tract; Z90.710 Acquired absence of both cervix and uterus; Z88.8 Allergy status to other drugs, medicaments and biological substances; Z79.899 Other long term (current) drug therapy
CPT/HCPCS: 36415; 74176; 80053; 81001; 83605; 84145; 85025; 85610; 85730; 86140; 96372; 99283; 99284; A9270; J1885; J2270; Q0162

== ENCOUNTER 2024-06-19 17:02 | Emergency (ER) | payer MEDICARE, OTHER ==
[2024-06-19] MEDS ORDERED: Sodium Chloride 0.9% 10 ML Syringe FLUSH PRN (17:27)
[2024-06-19 17:46] LABS: BASOPHILS PERCENT AUTO 0.1 % (0.0-1.0); EOSINOPHILS PERCENT AUTO 2.5 % (1.0-3.0); HEMATOCRIT 39.2 % (37.0-47.0); HEMOGLOBIN 12.5 g/dL (12.0-16.0); LYMPHOCYTES PERCENT AUTO 17.4 % (20.5-50.1); MEAN CORPUSCULAR HEMOGLOBIN 27.8 pg (27.0-34.0); MEAN CORPUSCULAR HGB CONC 31.9 g/dL (33.0-35.0); MEAN CORPUSCULAR VOLUME 87.3 fL (80-100); MONOCYTES PERCENT AUTO 8.3 % (2-8); NEUTROPHILS PERCENT AUTO 71.7 % (42.2-75.2); PLATELET COUNT,PLT 269 10^3/uL (150-450); RED BLOOD CELL COUNT 4.49 10^6/uL (4.2-5.4)
[2024-06-19 17:46] LABS: APPEARANCE,URINE SLIGHTLY CLOUDY (CLEAR); BILIRUBIN,URINE NEGATIVE (NEGATIVE); COLOR,URINE YELLOW (YELLOW); GLUCOSE,URINE NEGATIVE (NEGATIVE); KETONES,URINE NEGATIVE (NEGATIVE); LEUKOCYTE ESTERASE,URINE TRACE (NEGATIVE); NITRITE,URINE NEGATIVE (NEGATIVE); OCCULT BLOOD,URINE TRACE-INTACT (NEGATIVE); PH,URINE 7.5 (5.0-9.0); PROTEIN,URINE 30 (NEGATIVE)
[2024-06-19 18:08] LABS: A/G RATIO 0.9; ALBUMIN 3.4 g/dL (3.4-5.0); ANION GAP 14.9 mEq/L (7-13); BILIRUBIN TOTAL 0.2 mg/dL (0.2-1.0); BUN/CREATININE RATIO 11.2 (No establ ref range); CALCIUM 8.8 mg/dL (8.5-10.1); CREATININE 0.8 mg/dL (0.55-1.02); EST CRCL DRUG DOSING (CG) 71.03 mL/min; POTASSIUM,K 3.9 mmol/L (3.5-5.1); PROTEIN TOTAL,TP 7.2 g/dL (6.4-8.2)
[2024-06-19 18:14] LABS: EPITHELIAL CELLS,URINE MODERATE /HPF (NOT SEEN); RBC,URINE 0-5 /HPF (0-5)
[2024-06-19 18:15] LABS: BACTERIA,URINE MANY /HPF (0-FEW/HPF)
[2024-06-19] MEDS ORDERED: Sodium Chloride 0.9% 1,000 ML IV SCH (18:15)
[2024-06-19] MEDS: Ketorolac 30 MG/ML SDV IVPUSH ONE (18:38)
[2024-06-19] MEDS: Sodium Chloride 0.9% 1,000 ML IV SCH (18:38)
[2024-06-19] MEDS: Ondansetron 4 MG/2 ML SDV IVPUSH ONE (18:41)
[2024-06-19] MEDS: cefTRIAXone 1 GM Vial IVPUSH ONE (18:42)
[2024-06-19] MEDS: cefTRIAXone 1 GM Vial IM ONE (18:42)
== END 2024-06-19 20:39 | disposition home or self-care (01) ==
LOC: DL.ED 17:02
DX: N30.00 Acute cystitis without hematuria (principal); E66.9 Obesity, unspecified; Z90.49 Acquired absence of other specified parts of digestive tract; Z79.899 Other long term (current) drug therapy; Z88.2 Allergy status to sulfonamides; Z68.32 Body mass index [BMI] 32.0-32.9, adult
CPT/HCPCS: 36415; 74176; 80053; 81001; 85025; 87086; 96374; 96375; 99284; 99284-25; J0696; J1885; J2405; J7030

== ENCOUNTER 2024-10-16 12:41 | Emergency (ER) | payer MEDICARE, OTHER ==
[2024-10-16] MEDS ORDERED: Lidocaine 2% 20 ML MDV ONE (12:51)
[2024-10-16] MEDS: Magnesium Sulfate 2 GM/50 mL 2 GM in Premix Bag 1 BAG IV ONE (13:14)
[2024-10-16] MEDS: Ketorolac 30 MG/ML SDV IVPUSH ONE (13:14)
[2024-10-16] MEDS: Metoclopramide 10 MG/2 ML SDV IVPUSH ONE (13:14)
== END 2024-10-16 13:45 | disposition home or self-care (01) ==
LOC: DL.ED 12:41
DX: G43.809 Other migraine, not intractable, without status migrainosus (principal); E78.00 Pure hypercholesterolemia, unspecified; Z88.2 Allergy status to sulfonamides; Z79.899 Other long term (current) drug therapy
CPT/HCPCS: 96365; 96375; 99283; 99283-25; J1885; J2765; J3475

== ENCOUNTER 2024-12-25 22:27 | Emergency (ER) | payer MEDICARE, OTHER ==
[2024-12-25] MEDS: Ondansetron 4 MG/2 ML SDV IVPUSH ONE (22:58)
[2024-12-25 23:19] LABS: BASOPHILS PERCENT AUTO 0.1 % (0.0-1.0); EOSINOPHILS PERCENT AUTO 3.5 % (1.0-3.0); LYMPHOCYTES PERCENT AUTO 20.5 % (20.5-50.1); MONOCYTES PERCENT AUTO 8.3 % (2-8); NEUTROPHILS PERCENT AUTO 67.6 % (42.2-75.2); PLATELET COUNT,PLT 285 10^3/uL (150-450); RED BLOOD CELL COUNT 4.64 10^6/uL (4.2-5.4); WHITE BLOOD CELL COUNT,WBC 9.9 10^3/uL (5.0-10.0)
[2024-12-25] MEDS: Ketorolac 30 MG/ML SDV IVPUSH ONE (23:22)
[2024-12-25 23:42] LABS: A/G RATIO 0.9; ALANINE AMINOTRANSFERASE,ALT 19 U/L (14-59); ASPARTATE AMNIOTRANSFERASE,AST 13 U/L (15-37); BILIRUBIN TOTAL 0.3 mg/dL (0.2-1.0); BLOOD UREA NITROGEN,BUN 12 mg/dL (7-18); CARBON DIOXIDE,CO2 28 mmol/L (21-32); CHLORIDE,CL 104 mmol/L (98-107); CREATININE 0.70 mg/dL (0.55-1.02); EST CRCL DRUG DOSING (CG) 80.26 mL/min; ESTIMATED GFR 103 mL/min (>=60); GLUCOSE RANDOM 102 mg/dL (70-99); POTASSIUM,K 4.1 mmol/L (3.5-5.1); PROTEIN TOTAL,TP 7.5 g/dL (6.4-8.2); SODIUM,NA 141 mmol/L (136-145)
[2024-12-25 23:48] LABS: LACTIC ACID 1.4 mmol/L (0.4-2.0)
[2024-12-26 01:38] LABS: APPEARANCE,URINE SLIGHTLY CLOUDY (CLEAR); GLUCOSE,URINE NEGATIVE (NEGATIVE); OCCULT BLOOD,URINE TRACE-INTACT (NEGATIVE)
[2024-12-26 01:46] LABS: SQUAMOUS EPITHELIAL CELLS,UR MODERATE /HPF (NOT SEEN)
[2024-12-26] MEDS: Take Home: Acetaminophen/HYDROcodone 325-5 MG, 5 Tab Pack PO ONE (02:01)
== END 2024-12-26 02:00 | disposition home or self-care (01) ==
LOC: DL.ED 22:27
DX: K59.03 Drug induced constipation (principal); R10.84 Generalized abdominal pain; E66.9 Obesity, unspecified; Z88.2 Allergy status to sulfonamides; Z79.899 Other long term (current) drug therapy; Z90.49 Acquired absence of other specified parts of digestive tract; Z90.710 Acquired absence of both cervix and uterus; Z68.33 Body mass index [BMI] 33.0-33.9, adult
CPT/HCPCS: 36415; 74176; 80053; 81001; 83605; 83690; 83735; 84484; 85025; 96361; 96374; 96375; 96376; 99284; A9270; J1885; J2405; J7030; J1171

== ENCOUNTER 2024-12-27 13:02 | Emergency (ER) | payer MEDICARE, OTHER ==
[2024-12-27] MEDS: Ketorolac 30 MG/ML SDV IM ONE (13:37)
[2024-12-27] MEDS: Ondansetron 4 MG Tab.DIS PO ONE (13:39)
[2024-12-27] MEDS ORDERED: Sodium Chloride 0.9% 10 ML Syringe FLUSH PRN (13:55)
[2024-12-27 14:10] LABS: APPEARANCE,URINE CLEAR (CLEAR); GLUCOSE,URINE NEGATIVE (NEGATIVE); OCCULT BLOOD,URINE TRACE-INTACT (NEGATIVE)
[2024-12-27 14:26] LABS: EPITHELIAL CELLS,URINE FEW /HPF (NOT SEEN)
[2024-12-27] MEDS: diphenhydrAMINE 50 MG/ML SDV IVPUSH ONE (14:30)
[2024-12-27 14:37] LABS: BASOPHILS PERCENT AUTO 0.1 % (0.0-1.0); EOSINOPHILS PERCENT AUTO 2.9 % (1.0-3.0); LYMPHOCYTES PERCENT AUTO 15.6 % (20.5-50.1); MONOCYTES PERCENT AUTO 8.3 % (2-8); NEUTROPHILS PERCENT AUTO 73.1 % (42.2-75.2); PLATELET COUNT,PLT 277 10^3/uL (150-450); RED BLOOD CELL COUNT 4.30 10^6/uL (4.2-5.4); WHITE BLOOD CELL COUNT,WBC 10.6 10^3/uL (5.0-10.0)
[2024-12-27 14:57] LABS: A/G RATIO 0.78; ALANINE AMINOTRANSFERASE,ALT 42.0 U/L (14-59); ASPARTATE AMNIOTRANSFERASE,AST 23.0 U/L (15-37); BILIRUBIN TOTAL 0.3 mg/dL (0.2-1.0); BLOOD UREA NITROGEN,BUN 8.0 mg/dL (7-18); CARBON DIOXIDE,CO2 27.0 mmol/L (21-32); CHLORIDE,CL 105.0 mmol/L (98-107); CREATININE 0.67 mg/dL (0.55-1.02); EST CRCL DRUG DOSING (CG) 83.85 mL/min; ESTIMATED GFR 104.0 mL/min (>=60); GLUCOSE RANDOM 92.0 mg/dL (70-99); POTASSIUM,K 3.8 mmol/L (3.5-5.1); PROTEIN TOTAL,TP 7.1 g/dL (6.4-8.2); SODIUM,NA 141.0 mmol/L (136-145)
[2024-12-27] MEDS: Magnesium Sulfate 2 GM/50 mL 2 GM in Premix Bag 1 BAG IV ONE (15:33)
[2024-12-27] MEDS: Aluminum Hydroxide/Magnesium Hydroxide/Simethicone Susp 30 ML Cup PO ONE (15:34)
== END 2024-12-27 16:08 | disposition home or self-care (01) ==
LOC: DL.ED 13:02
DX: G43.809 Other migraine, not intractable, without status migrainosus (principal); E78.00 Pure hypercholesterolemia, unspecified; R10.84 Generalized abdominal pain; Z88.8 Allergy status to other drugs, medicaments and biological substances; Z79.899 Other long term (current) drug therapy
CPT/HCPCS: 36415; 74019; 80053; 81001; 83690; 85025; 96365; 96372; 96375; 99284; A9270; J1200; J1885; J2765; J3475

== ENCOUNTER 2024-12-29 06:24 | Day surgery (SDC) | payer MEDICARE, OTHER ==
[2024-12-29] MEDS: Povidone-Iodine 5% Sterile Ophth Soln 30 ML Bottle EYELF ONE ×2 (06:44→07:55)
[2024-12-29] MEDS: Phenylephrine 10% Ophth Soln 5 ML Bot EYELF PRN (06:45)
[2024-12-29] MEDS: Cataract Ophth Solution EYELF ONE (06:47)
[2024-12-29] MEDS: Timolol Maleate 0.5% Ophth Soln 5 ML Bottle EYELF ONE (06:47)
[2024-12-29] MEDS ORDERED: Moxifloxacin 0.5% Ophth Soln 3 ML Bottle EYELF ONE (07:30)
[2024-12-29] MEDS: Diclofenac Sodium 0.1% Ophth Soln 5 ML Bottle EYELF ONE (07:56)
[2024-12-29] MEDS: Apraclonidine 0.5% Ophth Soln 5 ML Bot EYELF ONE (07:56)
[2024-12-29] MEDS: Ondansetron 4 MG/2 ML SDV IVPUSH PRN (08:37)
[2024-12-29] MEDS ORDERED: Dexamethasone 4 MG/ML SDV ONE (09:24)
== END 2024-12-29 09:45 | disposition home or self-care (01) ==
LOC: DL.SDS 06:24
PROVIDERS: ATTEND Ophthalmology
DX: H25.813 Combined forms of age-related cataract, bilateral (principal); E78.2 Mixed hyperlipidemia; Z88.2 Allergy status to sulfonamides; Z79.899 Other long term (current) drug therapy
CPT/HCPCS: 66984; A9270; J2003; J2405; J3373; J3490

== ENCOUNTER 2024-12-29 10:32 | Emergency (ER) | payer MEDICARE, OTHER ==
[2024-12-29] MEDS: diphenhydrAMINE 50 MG/ML SDV IM ONE (12:12)
[2024-12-29] MEDS ORDERED: Sodium Chloride 0.9% 10 ML Syringe FLUSH PRN (12:52)
== END 2024-12-29 14:52 | disposition home or self-care (01) ==
LOC: DL.ED 10:32
DX: F41.9 Anxiety disorder, unspecified (principal); E66.9 Obesity, unspecified; Z68.34 Body mass index [BMI] 34.0-34.9, adult; Z90.49 Acquired absence of other specified parts of digestive tract; Z88.8 Allergy status to other drugs, medicaments and biological substances; Z79.899 Other long term (current) drug therapy
CPT/HCPCS: 96372; 96374; 99283; A9270; J1200; J1630

== ENCOUNTER 2025-01-12 06:22 | Day surgery (SDC) | payer MEDICARE, OTHER ==
[2025-01-12] MEDS ORDERED: Ondansetron 4 MG/2 ML SDV IVPUSH PRN (06:30)
[2025-01-12] MEDS: Povidone-Iodine 5% Sterile Ophth Soln 30 ML Bottle EYERT ONE ×2 (08:52→10:11)
[2025-01-12] MEDS: Moxifloxacin 0.5% Ophth Soln 3 ML Bottle EYERT ONE (08:52)
[2025-01-12] MEDS: Phenylephrine 10% Ophth Soln 5 ML Bot EYERT ONE (08:54)
[2025-01-12] MEDS: Timolol Maleate 0.5% Ophth Soln 5 ML Bottle EYERT ONE (08:54)
[2025-01-12] MEDS: Cataract Ophth Solution EYERT ONE (08:55)
[2025-01-12] MEDS: Apraclonidine 0.5% Ophth Soln 5 ML Bot EYERT ONE (10:12)
[2025-01-12] MEDS: Diclofenac Sodium 0.1% Ophth Soln 5 ML Bottle EYERT ONE (10:12)
[2025-01-12] MEDS: Promethazine 25 MG/ML SDV IM ONE (11:10)
== END 2025-01-12 12:50 | disposition home or self-care (01) ==
LOC: DL.SDS 06:22
PROVIDERS: ATTEND Ophthalmology
DX: H26.9 Unspecified cataract (principal); F32.A Depression, unspecified; E78.2 Mixed hyperlipidemia; E66.9 Obesity, unspecified; Z68.33 Body mass index [BMI] 33.0-33.9, adult; Z88.2 Allergy status to sulfonamides; Z79.899 Other long term (current) drug therapy
CPT/HCPCS: 66984; A9270; J2003; J2550; J3373; J3490

== ENCOUNTER 2025-03-20 20:28 | Emergency (ER) | payer MEDICARE, OTHER, MEDICAID ==
[2025-03-20] MEDS: Dexamethasone 4 MG/ML SDV IM ONE (20:59)
== END 2025-03-20 21:19 | disposition home or self-care (01) ==
LOC: DL.ED 20:28
DX: M54.16 Radiculopathy, lumbar region (principal); E66.9 Obesity, unspecified; Z88.2 Allergy status to sulfonamides; Z79.899 Other long term (current) drug therapy; Z90.89 Acquired absence of other organs; Z90.49 Acquired absence of other specified parts of digestive tract; Z68.34 Body mass index [BMI] 34.0-34.9, adult
CPT/HCPCS: 96372; 99283; J1100